=== PATIENT | female | born 2000 | race Caucasian/White ===

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

== ENCOUNTER 2020-02-10 14:52 | Emergency (ER) | payer MEDICAID, SELFPAY ==
[2020-02-10 14:57] VITALS: BP 142/77; PULSE 90; RESP 16; TEMP 36.5; O2SAT 98
[2020-02-10] MEDS: Inhaler, Assist Device 1 EACH MC (15:36)
[2020-02-10] MEDS: Albuterol HFA 8 GM 60 PUFF INH IH ×2 (15:36→16:05)
--- NOTE | 2020-02-10 16:25 | DI.RAD_ITS ---
EXAM: XR PORTABLE CHEST AP CLINICAL HISTORY: chest discomfort. TECHNIQUE: 2D digital imaging was performed. COMPARISON: CR,XR XR CHEST 2V PA LATERAL from 01/04/2019 FINDINGS: Heart size normal. Mediastinum is not widened. Lungs are clear. No infiltrates nor pleural effusio ns. No pulmonary edema. IMPRESSION: No acute pulmonary findings evident on this portable AP view of the chest. DATA REPOSITORY: RADIATION DOSE DELIVERED:
--- NOTE | 2020-02-10 16:30 | ED.GENADUL_ITS ---
Discharge Plan Disposition Patient Disposition: HOME Condition: Stable Discharge Details Clinical Impression: Bronchitis, Asthma exacerbation, Abscess of right thigh Primary Care Provider: Ryan Alvarado ED Provider: Jesus Sanford Home Meds and New Rx's Prescriptions: New amoxicillin-pot clavulanate [Augmentin] 875-125 mg tablet 1 tab PO BID Qty: 13 RF: 0 Continued albuterol sulfate 90 mcg/actuation aerosol powdr breath activated 2 inh IH Q4H PRN (Reason: shortness of breath or wheezing) Qty: 1 RF: 0 No Action ondansetron 4 mg tablet,disintegrating 4 mg PO Q8H PRN (Reason: nausea and vomiting) Qty: 30 RF: 0 Discharge Instructions Instructions: Albuterol (By breathing), Asthma (ED), Acute Bronchitis (ED), Abscess (ED) Additional Instructions: Use your albuterol inhaler every 4-6 hours, 2 puffs inhaled with spacer as needed for shortness of breath or wheezing. Please take steroid as prescribed. Please take full course of antibiotic as prescribed. Stop smoking. Refrain from inhaling any drugs. Please apply warm compresses to your right thigh a few times a day to encourage drainage. If swelling or pain worsens, please seek additional care. Please contact your primary care physician to arrange follow-up. Call tomorrow. Return to the ER for any worsening or new concerning symptoms. Referrals: Ryan Alvarado MD [Primary Care Provider] - Discharge Data Discharge Date/Time-TO BE ENTERED AT DEPARTURE: 02/10/20 16:55 Medical Decision Making 19-year-old female with history of asthma here with pleuritic chest discomfort, heavy inhalational use of marijuana, questioning inhalation of glass shard about 2 weeks ago, also with cough. Patient is saturating well in no respiratory distress. She is not tachycardic. No calf pain/tenderness or lower extremity edema. She does have faint wheeze bilaterally. PERC criteria applied. Suspect reactive airway disease with mild asthma exacerbation. Consider pneumonia and bronchitis. Patient was given albuterol treatment and spacer and symptoms did improve. Chest x-ray was reviewed and interpreted by radiology: No acute cardiopulmonary disease. No foreign body noted. Plan will be to treat for bronchitis and asthma exacerbation with prednisone 40 mg by mouth and will also cover with Augmentin. Consider COVID-19 although low risk. Will check COVID-19 test. Patient also noted a small abscess right upper thigh that has drained. No indication for incision and drainage. No surrounding cellulitis. Patient was encouraged to use warm compresses to encourage continued drainage Usual and customary discharge instructions were reviewed with the patient. She was encouraged to follow-up with primary care and to return for any worsening or new concerning symptoms. HPI General Mode of arrival: ambulatory . Date/Time Provider Initiated Documentation: 02/10/20 14:53 . Limitations to Documentation: no limitations . Information obtained by: patient . HPI Narrative: 19-year-old female with history of asthma here with chief complaint of chest discomfort. Patient notes that she has had chest discomfort for about 2 weeks. Discomfort is described congestion when she takes a deep deep inspiration. Discomfort is localized bilaterally. Discomfort is not present at rest. Discomfort is mild to moderate and has been intermittent since onset. She notes that symptoms started after inhaling marijuana through a bong. After inhaling she noted the balm had some broken glass in it and she was concerned that she inhaled a shard of glass. She did not feel any glass in her mouth no throat while inhaling. She does note that she has been inhaling marijuana more frequently recently related to stress. She has associated cough. No shortness of breath. No leg swelling or calf pain. She has no associated fever. No known contacts with Covid positive patient. Related Data Home Medications Medication Instructions Recorded Confirmed albuterol sulfate 2 inh IH Q4H PRN #1 each 01/04/19 01/24/19 amoxicillin-pot clavulanate 1 tab PO BID #13 tab 02/10/20 [Augmentin] ondansetron 4 mg PO Q8H PRN #30 tab 02/17/20 Previous Rx's Medication Instructions Recorded albuterol sulfate 2 inh IH Q4H PRN #1 each 01/04/19 amoxicillin-pot clavulanate 1 tab PO BID #13 tab 02/10/20 [Augmentin] ondansetron 4 mg PO Q8H PRN #30 tab 02/17/20 Allergies Allergy/AdvReac Type Severity Reaction Status Date / Time pineapple AdvReac Mild Skin Rash Unverified 02/10/20 15:10 General Stated Complaint: RespSymp JAMIE: 3 Review of Systems All systems reviewed & are unremarkable except as noted in HPI and below Constitutional Constitutional: Denies fever(s) Respiratory Respiratory: Reports cough and Reports wheezing Allergic/Immunologic Allergic/Immunologic: Reports wheezing PFSH Medical History History of self mutilation Cutting L arm Hx of maternal chlamydia infection, currently Teen Surgical History No significant past surgical history Family History Mother Substance abuse Alcohol abuse Mental disorder anxietyy/depression Father Healthy adult on routine physical examination Other Substance abuse maternal relatives Alcohol abuse maternal side Personal history of malignant neoplasm PGM-breast Heart disease MGM Multiple sclerosis MGM Social History Smoking/Tobacco Use Status: Never Smoking risk assessment performed?: Yes Alcohol Intake: current Alcohol Intake frequency: a few times a week Drug use: Occasionally Substance use type: marijuana Details: MDMA sometimes Do you feel safe at home: Yes Do you feel safe in your relationship?: Yes History History 1 Para Hx # Term Pregnancies Multiple births Hx # Pregnancies Ectopic pregnancies AB induced Hx Number of Living Children 0 AB spontaneous 1 Past Pregnancies Del. Date GA/Weeks # Outcome Route Wgt Sex Labor Lgth Anesthes ia Location Prov Complic 08/26/18 Unsuccessful Delivery Date: 08/26/18 Bernadine Man LPN Exam Const General: cooperative and no acute distress HENMT Mouth: moist mucous membranes Eyes Conjunctivae: normal conjunctivae Sclera: normal sclerae Neck Neck: trachea midline and supple Resp Auscultation: no rales, no rhonchi and wheezes (Faint bilateral) Cardio Rate: regular rate and not tachycardic Rhythm: regular rhythm GI Palpation: soft, not firm, no guarding, no masses, not rigid and nontender Skin Lesions: lesion noted (1 cm ulcerated abscess with no active drainage, no fluctuance) Rashes: no rashes noted Neuro General: patient alert, patient awake and tone normal Extrem General: no calf tenderness and no edema Psych Appearance: grossly normal Mental Status: mental status grossly normal Course Vital Signs Vital signs: Vital Signs Temperature 36.5 C 02/10/20 14:57 Pulse 90 02/10/20 14:57 Respiratory Rate 16 02/10/20 14:57 Blood Pressure 142/77 H 12/16/20 14:57 Pulse Oximetry 98 02/10/20 14:57 Temperature 36.5 C 02/10/20 14:57 Temperature Source Temporal Artery Scan 02/10/20 14:57 Pulse 90 02/10/20 14:57 Respiratory Rate 16 02/10/20 14:57 Respiratory Effort 02/10/20 15:12 Blood Pressure 142/77 H 02/10/20 14:57 Blood Pressure Position Sitting 02/10/20 14:57 Pulse Oximetry 98 02/10/20 14:57 Oxygen Delivery Method Room Air 02/10/20 14:57 Oxygen Flow Rate 0 02/10/20 14:57 Lab/Test Results Lab/Test Results: POC- Test(urine) Negative
[2020-02-10] MEDS: predniSONE 20 MG TAB 40 MG PO (16:38)
[2020-02-10] MEDS: Amoxicillin 875/Clav. 125 TAB PO (16:38)
--- NOTE | 2020-02-10 16:40 | DI.VRAD_ITS ---
PROCEDURE INFORMATION: Exam: XR Chest, 1 View Exam date and time: 02/10/2020 4:22 PM Age: 19 years old Clinical indication: Other: Chest discomfort TECHNIQUE: Imaging protocol: XR of the chest Views: 1 view. COMPARISON: CR XR CHEST 2V PA LATERAL 01/04/2019 2:36 PM FINDINGS: Lungs: Lungs volumes are low. There is no focal consolidation. Pleural space: Unremarkable. No pleural effusion. No pneumothorax. Heart/Mediastinum: Unremarkable. No cardiomegaly. Bones/joints: Unremarkable. IMPRESSION: No acute pulmonary process. Dictated and Authenticated by: Willis Sky MD. Ordering:TARIQ Lee MD
[2020-02-10 16:46] VITALS: BP 126/81; PULSE 87; RESP 14; TEMP 36.6; O2SAT 100
[2020-02-12 21:37] LABS: COVID-19 RT-PCR Result NEGATIVE (Negative)
--- NOTE | 2020-02-16 17:50 | NUR.NOTE ---
gave patient her COVID test results: negative
== END 2020-02-10 16:55 | disposition home or self-care (01) ==
PROVIDERS: Emergency Provider Student in an Organized Health Care Education/Training Program; PCP Pediatrics
DX: J44.0 Chronic obstructive pulmonary disease with (acute) lower respiratory infection (principal); J20.9 Acute bronchitis, unspecified; J45.901 Unspecified asthma with (acute) exacerbation; L02.415 Cutaneous abscess of right lower limb; Z03.818 Encounter for observation for suspected exposure to other biological agents ruled out; F17.210 Nicotine dependence, cigarettes, uncomplicated; F12.10 Cannabis abuse, uncomplicated
CPT/HCPCS: 81025; 99283; U0003; 71045; 99284; J7512

== ENCOUNTER 2020-02-17 09:41 | Emergency (ER) | payer MEDICAID, SELFPAY ==
[2020-02-17] VITALS (11 sets, daily range): BP systolic 103–133; BP diastolic 59–78; PULSE 81–93; RESP 18–21; TEMP 36.7; O2SAT 99
--- NOTE | 2020-02-17 09:45 | RT.EKG_ITS ---
APPROVED REPORT Exam: Resting ECG Patient Location: E HR:86 bpm ECG Measurements Heart Rate 86 AXIS AL 159 P 48 QRSd 84 QRS 25 QT 330 T 2 QTc 396 Conclusion Sinus rhythm...normal P axis, V-rate 60- 99
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
[2020-02-17 10:14] LABS: Bilirubin Negative (Negative); Blood Negative (Negative); Clarity Sl Cloudy (Clear); Glucose Negative (Negative); Ketones Negative (Negative); Leukocyte Esterase Trace (Negative); Nitrite Negative (Negative); Urobilinogen 0.2 EU/dL (Up TO 0.2); pH 8.5 (5-8)
[2020-02-17] MEDS: Ketorolac 15 MG/ML VIAL IVP (10:18)
[2020-02-17] MEDS: LORazepam 2 MG/ML VIAL 1 MG IVP (10:18)
[2020-02-17 10:24] LABS: Bacteria Negative HPF (Negative); C & S Indicated? No/Sq. Contamination; Casts Negative LPF (Negative); Crystals Negative HPF (Negative); Epithelial Cells Many HPF (Negative); Mucus Negative (Negative); RBC 0-2 HPF (0-2)
[2020-02-17 10:26] LABS: *AMPHETAMINES SCREEN URINE Negative (Negative); *BARBITURATES SCREEN URINE Negative (Negative); *BENZODIAZEPINES SCREEN URINE Negative (Negative); Cannabinoids THC POSITIVE (Negative); Cocaine Screen,Urine Negative (Negative); METHADONE URINE SCREEN Negative (Negative); OPIATES URINE SCREEN Negative (Negative)
[2020-02-17 10:29] LABS: Tricyclic Antidepressants Negative (Negative)
[2020-02-17 10:41] LABS: Abs Immature Grans 0.03 10^3/uL (0.0-0.06); Absolute Basophil Count 0.01 10^3/uL (0.0-0.2); Absolute Eosinophil Count 0.22 10^3/uL (0.0-0.7); Basophils % 0.2; Eosinophils % 3.5; HCT 46.3 % (36.0-46.0); Immature Grans % 0.5; Lymphocytes % 23.6; MCH 32.8 pg (27.0-33.0); MCHC 34.6 % (32.0-36.0); MCV 94.9 fL (80-95); MPV 10.9 fL (8.0-11.0); Monocytes % 9.4; Neutrophils % 62.8; Nucleated RBC 0 %; Platelet Count 238 10^3/uL (130-400); RBC 4.88 10^6/uL (3.93-5.22); RDW 11.2 % (11.7-14.6); RDW-SD 38.9 fL; WBC 6.36 10^3/uL (4.4-10.8)
[2020-02-17 10:52] LABS: ALT 69 U/L (14-59); AST 30 U/L (15-37); Albumin 4.3 g/dL (3.4-5.0); Alkaline Phosphatase 82 U/L (46-116); Anion Gap 8.2 mmol/L (3-11); BUN 8 mg/dL (7-18); Bilirubin, Total 0.9 mg/dL (0.2-1.0); CO2 26.8 mmol/L (21.0-32.0); CREATININE 0.65 mg/dL (0.55-1.02); Calcium 9.3 mg/dL (8.5-10.1); Chloride 105 mmol/L (98-107); Glucose 95 mg/dL (74-106); Lipase 61 U/L (73-393); Magnesium 2.1 mg/dL (1.8-2.4); Potassium 3.8 mmol/L (3.5-5.1); Sodium 140 mmol/L (136-145); Total Protein 8.4 g/dL (6.4-8.2)
[2020-02-17] MEDS: Omnipaque 350 MG/ML 100 ML BTL IJ (10:59)
[2020-02-17] MEDS: Normal Saline Flush 10 ML SYR IVP (11:00)
[2020-02-17] MEDS: Normal Saline - Diluent 50 ML VIAL IV (11:00)
[2020-02-17] MEDS: Ondansetron 4 MG/2 ML VIAL (11:07)
[2020-02-17 11:08] LABS: ETHANOL BLOOD < 3.0 mg/dL (<3)
--- NOTE | 2020-02-17 12:06 | NUR.NOTE ---
copy to care management to establish pcpNursing Note:
== END 2020-02-17 12:17 | disposition home or self-care (01) ==
PROVIDERS: Emergency Provider Emergency Medicine; PCP Pediatrics
DX: S06.0X0A Concussion without loss of consciousness, initial encounter (principal); S16.1XXA Strain of muscle, fascia and tendon at neck level, initial encounter; R07.81 Pleurodynia; M25.512 Pain in left shoulder; R10.12 Left upper quadrant pain
CPT/HCPCS: 36415; 74177; 80053; 80307; 81025; 83690; 93005; 99285; 70450; 71260; 72125; 80320; 81003; 81015; 83735; 85025; 93010; J1885; J2060; J2405; J3490

== ENCOUNTER 2020-03-12 11:50 | Emergency (ER) | payer MEDICAID, SELFPAY ==
[2020-03-12 12:06] VITALS: BP 137/79; PULSE 91; RESP 18; TEMP 36.7; O2SAT 98
--- NOTE | 2020-03-12 12:20 | ED.GENADUL_ITS ---
Discharge Plan Disposition Patient Disposition: HOME Condition: Good Discharge Details Clinical Impression: Finger laceration Primary Care Provider: Ryan Alvarado ED Provider: Yue Robin Home Meds and New Rx's Prescriptions: No Action albuterol sulfate 90 mcg/actuation aerosol powdr breath activated 2 inh IH Q4H PRN (Reason: shortness of breath or wheezing) Qty: 1 RF: 0 ondansetron 4 mg tablet,disintegrating 4 mg PO Q8H PRN (Reason: nausea and vomiting) Qty: 30 RF: 0 Discharge Instructions Instructions: Finger Laceration (ED) Additional Instructions: Staff to remove Surgicel in 3-5 days Keep dry until that time Change dressing daily Ibuprofen Tylenol as needed for Your wounds will likely treat. I recommend keeping it covered at work Please return if redness, fever, worsening pain Medical Decision Making Medical Records Medical records narrative: Tetanus updated Surgicel applied after wound cleaned Pressure dressing applied Coagulation achieved Return precautions discussed and patient expressed understanding Lab Data Lab results reviewed: Yes I reviewed the patient's lab results. HPI 19-year-old female presents with wound to the left index finger. States that she was at work and lifting daily needed when she accidentally sliced her finger. The event occurred approximately half hour prior to arrival. Unsure of her last tetanus. Denies . Denies any additional injury. Denies history of coagulopathy. General Date/Time Provider Initiated Documentation: 03/12/20 12:19 . Related Data Home Medications Medication Instructions Recorded Confirmed albuterol sulfate 2 inh IH Q4H PRN #1 each 01/04/19 03/12/20 ondansetron 4 mg PO Q8H PRN #30 tab 02/17/20 03/12/20 Previous Rx's Medication Instructions Recorded albuterol sulfate 2 inh IH Q4H PRN #1 each 01/04/19 ondansetron 4 mg PO Q8H PRN #30 tab 02/17/20 Allergies Allergy/AdvReac Type Severity Reaction Status Date / Time pineapple AdvReac Mild Skin Rash Unverified 03/12/20 12:23 General Stated Complaint: Laceration JAMIE: 4 Review of Systems Narrative: Review of systems negative times 3 aside from where indicated in HPI PFSH Medical History History of self mutilation Cutting L arm Hx of maternal chlamydia infection, currently Teen Surgical History No significant past surgical history Family History Mother Substance abuse Alcohol abuse Mental disorder anxietyy/depression Father Healthy adult on routine physical examination Other Substance abuse maternal relatives Alcohol abuse maternal side Personal history of malignant neoplasm PGM-breast Heart disease MGM Multiple sclerosis MGM Social History Smoking/Tobacco Use Status: Never Smoking risk assessment performed?: Yes Alcohol Intake: current Alcohol Intake frequency: a few times a week Drug use: Occasionally Substance use type: marijuana Details: MDMA sometimes Do you feel safe at home: Yes Do you feel safe in your relationship?: Yes History History 1 Para Hx # Term Pregnancies Multiple births Hx # Pregnancies Ectopic pregnancies AB induced Hx Number of Living Children 0 AB spontaneous 1 Past Pregnancies Del. Date GA/Weeks # Outcome Route Wgt Sex Labor Lgth Anesthes ia Location Prov Complic 08/26/18 Unsuccessful Delivery Date: 08/26/18 Bernadine Man LPN Exam Neuro Sensory Exam: no sensory deficits noted Extrem Left upper extremity: full ROM and normal capillary refill Hand/finger images: 1. Avulsion Course Vital Signs Vital signs: Vital Signs Temperature 36.7 C 03/12/20 12:06 Pulse 91 H 03/12/20 12:06 Respiratory Rate 18 03/12/20 12:06 Blood Pressure 137/79 03/12/20 12:06 Pulse Oximetry 98 03/12/20 12:06 Temperature 36.7 C 03/12/20 12:06 Temperature Source Temporal Artery Scan 03/12/20 12:06 Pulse 91 H 03/12/20 12:06 Respiratory Rate 18 03/12/20 12:06 Respiratory Effort 03/12/20 12:19 Blood Pressure 137/79 03/12/20 12:06 Blood Pressure Position Sitting 03/12/20 12:06 Pulse Oximetry 98 03/12/20 12:06 Oxygen Delivery Method Room Air 03/12/20 12:06 Oxygen Flow Rate 0 03/12/20 12:06 Pain Level 5 03/12/20 12:06
[2020-03-12] MEDS: Cellulose,Oxidized 2X3 PKT 1 EACH MC (12:24)
[2020-03-12] MEDS: Tetanus & Diphtheria Tox,ADULT 0.5 ML VIAL IM (12:39)
== END 2020-03-12 12:48 | disposition home or self-care (01) ==
PROVIDERS: Emergency Provider Physician Assistant; PCP Pediatrics
DX: S61.211A Laceration without foreign body of left index finger without damage to nail, initial encounter (principal); W31.82XA Contact with other commercial machinery, initial encounter; Y99.0 Civilian activity done for income or pay
CPT/HCPCS: 90471; 99284; 99283

== ENCOUNTER 2020-03-14 09:04 | Emergency (ER) | payer MEDICAID, SELFPAY ==
[2020-03-14 09:07] VITALS: BP 125/71; PULSE 95; RESP 16; TEMP 36.5; O2SAT 99
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
[2020-03-14] MEDS: Ibuprofen 600 MG TAB PO (09:57)
== END 2020-03-14 10:09 | disposition home or self-care (01) ==
PROVIDERS: Emergency Provider Registered Nurse Emergency; PCP Pediatrics
DX: S61.211A Laceration without foreign body of left index finger without damage to nail, initial encounter (principal); W31.82XA Contact with other commercial machinery, initial encounter; Z48.01 Encounter for change or removal of surgical wound dressing

== ENCOUNTER 2020-09-28 02:26 | Outpatient (CLI) | payer MEDICAID, SELFPAY ==
--- NOTE | 2020-09-28 | DI.US_ITS ---
Exam(s) US SOFT TISSUE HEAD OR NECK EXAM: US SOFT TISSUE HEAD OR NECK CLINICAL HISTORY: SCALP PAIN, R52,LOWER LT SCALP. TECHNIQUE: Ultrasound was performed using standard protocol. COMPARISON: No exams were available for comparison FINDINGS: Sonographic assessment utilizing grayscale and color Doppler imaging was performed and targeted to th e area of clinical concern. This is apparently behind her head left ear at the base of the skull. Imaging of this area reveals a 1.5 x 0.6 x 1.3 cm lymph node. No other lymph nodes noted. No other solid or significant cystic lesions seen in this area. It appears that the ultrasound examination was limited to the area of clinical concern. IMPRESSION: There is a 15 x 6 x 13 millimeter lymph node corresponding to the palpable finding. Recommend repeat scanning in a few months time to ensure size stability. Also correlation with clinical examination is recommended (such as if there are other prominent lymph nodes elsewhere in the neck, axilla/elsewh ere.) DATA REPOSITORY:
== END 2020-09-28 02:46 ==
PROVIDERS: PCP Pediatrics; Visit Provider Nurse Practitioner Family
DX: R51.9 Headache, unspecified (principal)
CPT/HCPCS: 76536

== ENCOUNTER 2021-01-09 05:17 | Emergency (ER) | payer MEDICAID, SELFPAY ==
[2021-01-09] VITALS (7 sets, daily range): BP systolic 111–148; BP diastolic 61–84; PULSE 74–86; RESP 16–18; TEMP 36.4–36.6; O2SAT 96–100
--- NOTE | 2021-01-09 05:45 | W.ED.GENAD ---
Discharge Plan Disposition Patient Disposition: HOME Condition: Stable Discharge Details Clinical Impression: Cervical herniated disc Primary Care Provider: Unknown,Unknown ED Provider: Bhargavi Sanford Home Meds and New Rx's Prescriptions: New prednisone 20 mg tablet 40 mg PO DAILY Qty: 8 RF: 0 oxycodone-acetaminophen [Percocet] 5-325 mg tablet 1 tab PO Q8H PRNQty: 5 RF: 0 No Action albuterol sulfate 90 mcg/actuation aerosol powdr breath activated 2 inh IH Q4H PRN (Reason: shortness of breath or wheezing) Qty: 1 RF: 0 ondansetron 4 mg tablet,disintegrating 4 mg PO Q8H PRN (Reason: nausea and vomiting) Qty: 30 RF: 0 Discharge Instructions Instructions: Cervical Strain (ED), Cervical Disc Herniation (ED) Additional Instructions: Please return immediately to the emergency department if you develop any new or worsening symptoms, if your condition does not improve as expected, or if you become otherwise concerned. It is extremely important that you call soon as possible to make an appointment to be seen in follow-up for this visit by your primary care doctor and an orthopedic surgeon. Stand Alone Forms: Work Release Referrals: Kelvin Madrigal MD [ [facility] STAFF PHYSICIAN] - Medical Decision Making <Jim Orr DO - Last Filed: 01/09/21 05:49> This is a 20-year-old female with a past medical history of asthma who presents for neck pain. Patient states that over a day and a half ago she fell and landed on her back and had some mild mid back pain. No neck pain at all at that time, however this morning when she woke up about an hour or 2 prior to arrival she had notable right-sided neck pain which caused her neck to be rotated to the left. She is unable to move the neck back towards midline secondary to the pain. She admits to mild achiness in her right neck, scapula, shoulder and back. She denies any fever or chills. She denies any trauma to the neck itself. She denies any numbness or tingling in the extremities. Symptoms are made notably worse with movement. Improved by nothing. No other complaints at this time. No other modifying factors. Physical exam demonstrates a leftward rotated neck, with mild left-sided sidebending. Tenderness over the trapezius, but no palpable spasm of the sternocleidomastoid. Concern for potential musculoskeletal strain and spasm. Symptoms at this time appearing consistent with meningitis. Will give muscle relaxant and Tylenol, and reassess. <Bhargavi Sanford MD - Last Filed: 01/09/21 14:26> Roshni Shaffer is a 20-year-old woman with history of asthma who presented to emergency department with neck pain, please see Dr. Orr's note for history and physical and assessment plan. Patient was signed out to me at time of shift change with imaging, labs pending. CT reported as negative, ESR and CRP negative. On my reassessment, patient reports that yesterday afternoon she fell backwards, hitting the lower part of her neck on a counter. Patient states that she did have neck pain at the time, but was able to turn her neck without issue. Patient reports that she woke up at 3 AM this morning unable to turn her neck secondary to pain. Patient holding her pain and left lateral rotation, has increased pain with rotation of her neck to midline. Patient reports that since onset of this pain at 3 AM, pain radiates into bilateral arms. She denies any other pain, fever, cough, shortness of breath, vomiting, diarrhea, numbness, weakness, rash. Patient reports that she was previously well in her usual state of health. Patient tearful, stating that she cannot turn her neck at all without severe pain radiating into bilateral arms. Given reported history of trauma and neck pain starting at onset of trauma with impacted neck) contrary to what was reported to Dr. Orr on initial presentation) plan for MRI of the neck for further evaluation. Exam/history at this time is not consistent with meningitis, subarachnoid hemorrhage, epidural abscess, epidural hematoma, sepsis. MRI shows small cervical disc herniation at C5-C6 level. Plan for steroids, ibuprofen for pain at home, Percocet for breakthrough pain, outpatient follow-up with orthopedic. Safe use of opiates discussed with patient. I had a lengthy discussion with Patient regarding return to emergency department precautions, home care, and importance of outpatient follow-up. Pt verbalizes understanding of the plan and is amenable. Patient discharged to home with clear plan for outpatient follow-up. All questions were answered. Disposition decision was made weighing the risks and benefits of hospitalization versus outpatient treatment, the risk for further decompensation, and the patient's wishes. Medical Records Medical records reviewed: Yes I reviewed the patient's medical records. Imaging Data Radiologic Study: Attestation: I personally reviewed and interpreted this imaging study as follows: Radiologist's impression: EXAM: MR CERVICAL SPINE WO CLINICAL HISTORY: neck pain, trauma, difficult ymoving neck TECHNIQUE: Multiplanar multisequence MRI of the cervical spine was performed without intravenous contrast. COMPARISON: CT CT NECK W from 01/09/2021 FINDINGS: CERVICOMEDULLARY JUNCTION: Intact with no evidence of cerebellar tonsillar ectopia. No obvious abnormality of the odontoid process. No evidence of Chiari 1 malformation. CERVICAL SPINAL CORD: There is no abnormal signal in the cervical spinal cord and no evidence of focal cord atrophy nor focal cord swelling. OSSEOUS:There are no cervical fractures evident. No significant osseous lesions in the cervical vertebrae. INDIVIDUAL LEVELS: C2-3: No disc herniation nor central canal stenosis. No foraminal stenosis. No facet arthropathy. C3-4: No disc herniation nor central canal stenosis.No facet arthropathy. No foraminal stenosis. C4-5: No disc herniation nor central canal stenosis.No facet arthropathy. No foraminal stenosis C5-6: Normal disc height. However at this level there is a central posterior subligamentous focal disc protrusion which extends posteriorly 2 millimeters and is approximately 5 millimeters wide. This is subligamentous and does not contact the spinal cord. Central canal dimensions are within normal limits at this level as are the foraminal measurement, with no evidence of foraminal stenosis. C6-7: No disc herniation or central canal stenosis. No facet arthropathy. No foraminal stenosis C7-T1: No disc herniation nor central canal stenosis. No facet arthropathy.No foraminal stenosis. IMPRESSION: 1. Main findings are at the C5-6 level where there is a small focal central subligamentous disc protrusion which extends posteriorly 2 millimeters and is approximately 5 millimeters wide. This does not contact the spinal cord. There is no abnormal cord signal nor evidence of focal cord atrophy nor focal cord swelling. CIS 2. Some straightening of the cervical curvature is noted EXAM: CT NECK W CLINICAL HISTORY: neck stuck in left rotation, right neck pain. TECHNIQUE: Imaging Protocol: Axial CT angiography was performed with multi-slice acquisition and multi-planar and/or 3D reconstructions. CONTRAST MATERIAL: Intravenous: Omnipaque 350 Contrast volume:structured data in ml COMPARISON: CT CT HEAD CERVICAL SPINE WO from 02/17/2020 FINDINGS: Paranasal sinuses: There is opacification of the left maxillary sinus and ethmoidal air cells. Also mild mucosal thickening noted in the sphenoid sinuses. Parotid and submandibular glands appear unremarkable. Thyroid gland appears unremarkable. Nasopharynx tissues appear symmetrical. No obvious mass in the oropharynx. Hypopharynx appears unremarkable. Free edge of the epiglottis is not swollen. Aryepiglottic folds unremarkable. Vocal cords appear unremarkable as does the subglottic airway. There is no adenopathy in the neck and supraclavicular regions. Vascular: Common carotid arteries and carotid bifurcations appear unremarkable as do the internal carotid arteries in the neck. Internal jugular veins are patent. Both vertebral arteries are patent. Osseous: No cervical spine fracture evident. No listhesis. No facet malalignment. Disc spaces exhibit normal height. IMPRESSION: 1. No evidence of cervical spine fracture or malalignment. 2. No abnormal soft tissue findings in the neck. Lab Data Lab results reviewed: Yes I reviewed the patient's lab results. Labs: Laboratory Tests Range/Units 01/09/21 01/09/21 01/09/21 05:45 05:45 05:45 WBC (4.4-10.8) 10^3/uL 5.27 RBC (3.93-5.22) 10^6/uL 4.39 Hgb (11.2-15.7) g/dL 14.5 Hct (36.0-46.0) % 42.7 MCV (80-95) fL 97.3 H MCH (27.0-33.0) pg 33.0 MCHC (32.0-36.0) % 34.0 RDW (11.7-14.6) % 11.0 L Plt Count (130-400) 10^3/uL 203 MPV (8.0-11.0) fL 10.8 Immature Gran % 0.2 Neutrophils % 57.5 Lymphocytes % 26.8 Monocytes % 10.4 Eosinophils % 4.7 Basophils % 0.4 Nucleated RBC % % 0 Absolute Neutrophils (1.2-6.7) 10^3/uL 3.03 Absolute Lymphocytes (1.2-3.4) 10^3/uL 1.41 Absolute Monocytes (0.1-0.8) 10^3/uL 0.55 Absolute Eosinophils (0.0-0.7) 10^3/uL 0.25 Absolute Basophils (0.0-0.2) 10^3/uL 0.02 ESR (0-20) mm/hr Sodium (136-145) mmol/L 145 Potassium (3.5-5.1) mmol/L 4.0 Chloride (98-107) mmol/L 108 H Carbon Dioxide (21.0-32.0) mmol/L 28.1 Anion Gap (3-11) mmol/L 8.9 BUN (7-18) mg/dL 9 Creatinine (0.55-1.02) mg/dL 0.6 Estimated GFR/1.73 m2 (mL/min/1.73m2) >= 60.00 Glucose (74-106) mg/dL 99 Calcium (8.5-10.1) mg/dL 8.7 Total Bilirubin (0.2-1.0) mg/dL 0.5 AST (15-37) U/L 13 L ALT (14-59) U/L 28 Alkaline Phosphatase (46-116) U/L 60 C-Reactive Protein (0.0-0.3) mg/dL 0.17 Total Protein (6.4-8.2) g/dL 7.1 Albumin (3.4-5.0) g/dL 4.0 Range/Units 01/09/21 05:45 WBC (4.4-10.8) 10^3/uL RBC (3.93-5.22) 10^6/uL Hgb (11.2-15.7) g/dL Hct (36.0-46.0) % MCV (80-95) fL MCH (27.0-33.0) pg MCHC (32.0-36.0) % RDW (11.7-14.6) % Plt Count (130-400) 10^3/uL MPV (8.0-11.0) fL Immature Gran % Neutrophils % Lymphocytes % Monocytes % Eosinophils % Basophils % Nucleated RBC % % Absolute Neutrophils (1.2-6.7) 10^3/uL Absolute Lymphocytes (1.2-3.4) 10^3/uL Absolute Monocytes (0.1-0.8) 10^3/uL Absolute Eosinophils (0.0-0.7) 10^3/uL Absolute Basophils (0.0-0.2) 10^3/uL ESR (0-20) mm/hr 4 Sodium (136-145) mmol/L Potassium (3.5-5.1) mmol/L Chloride (98-107) mmol/L Carbon Dioxide (21.0-32.0) mmol/L Anion Gap (3-11) mmol/L BUN (7-18) mg/dL Creatinine (0.55-1.02) mg/dL Estimated GFR/1.73 m2 (mL/min/1.73m2) Glucose (74-106) mg/dL Calcium (8.5-10.1) mg/dL Total Bilirubin (0.2-1.0) mg/dL AST (15-37) U/L ALT (14-59) U/L Alkaline Phosphatase (46-116) U/L C-Reactive Protein (0.0-0.3) mg/dL Total Protein (6.4-8.2) g/dL Albumin (3.4-5.0) g/dL HPI <Jim Orr DO - Last Filed: 01/09/21 05:49> General Date/Time Provider Initiated Documentation: 01/09/21 05:20. HPI Narrative: This is a 20-year-old female with a past medical history of asthma who presents for neck pain. Patient states that over a day and a half ago she fell and landed on her back and had some mild mid back pain. No neck pain at all at that time, however this morning when she woke up about an hour or 2 prior to arrival she had notable right-sided neck pain which caused her neck to be rotated to the left. She is unable to move the neck back towards midline secondary to the pain. She admits to mild achiness in her right neck, scapula, shoulder and back. She denies any fever or chills. She denies any trauma to the neck itself. She denies any numbness or tingling in the extremities. Symptoms are made notably worse with movement. Improved by nothing. No other complaints at this time. No other modifying factors. Related Data Home Medications Medication Instructions Recorded Confirmed albuterol sulfate 2 inh IH Q4H PRN #1 each 01/04/19 01/09/21 ondansetron 4 mg PO Q8H PRN #30 tab 02/17/20 03/14/20 oxycodone-acetaminophen [Percocet] 1 tab PO Q8H PRN #5 tab 01/09/21 prednisone 40 mg PO DAILY #8 tab 01/09/21 Previous Rx's Medication Instructions Recorded albuterol sulfate 2 inh IH Q4H PRN #1 each 01/04/19 ondansetron 4 mg PO Q8H PRN #30 tab 02/17/20 oxycodone-acetaminophen [Percocet] 1 tab PO Q8H PRN #5 tab 01/09/21 prednisone 40 mg PO DAILY #8 tab 01/09/21 Allergies Allergy/AdvReac Type Severity Reaction Status Date / Time pineapple AdvReac Mild Skin Rash Unverified 03/14/20 09:12 General Stated Complaint: Nk/Back Pain JAMIE: 4 Review of Systems <Jim Orr DO - Last Filed: 01/09/21 05:49> All systems reviewed & are unremarkable except as noted in HPI and below PFSH <Jim Orr DO - Last Filed: 01/09/21 05:49> Medical History History of self mutilation Cutting L arm Hx of maternal chlamydia infection, currently Teen Surgical History No significant past surgical history Family History Mother Substance abuse Alcohol abuse Mental disorder anxietyy/depression Father Healthy adult on routine physical examination Other Substance abuse maternal relatives Alcohol abuse maternal side Personal history of malignant neoplasm PGM-breast Heart disease MGM Multiple sclerosis MGM Social History Smoking/Tobacco Use Status: Never Smoking risk assessment performed?: Yes Alcohol Intake: current Alcohol Intake frequency: a few times a week Drug use: Occasionally Substance use type: marijuana Details: MDMA sometimes Do you feel safe at home: Yes Do you feel safe in your relationship?: Yes History History 1 Para Hx # Term Pregnancies Multiple births Hx # Pregnancies Ectopic pregnancies AB induced Hx Number of Living Children 0 AB spontaneous 1 Past Pregnancies Del. Date GA/Weeks # Outcome Route Wgt Sex Labor Lgth Anesthesia Location Prov Complic 08/26/18 Unsuccessful Delivery Date: 08/26/18 Bernadine Man LPN Exam <Jim Orr DO - Last Filed: 01/09/21 05:49> Narrative Exam Narrative: 1.Const: Well-nourished, Well-developed, appearing stated age 2.Eyes: PERRL, no conjunctival injection, and symmetrical lids. 3.ENT: Atraumatic external nose and ears. Moist MM. Neck: Symmetric, trachea midline, No thyromegaly. 4.CVS: +S1/S2, No murmurs or gallops. Peripheral pulses 2+ and equal in all extremities. Brisk capillary refill in all extremities. 5.RESP: Unlabored respiratory effort. Clear to auscultation bilaterally. No wheezes rales or rhonchi 6.GI: Soft, Nontender/Nondistended, No hepatosplenomegaly. No guarding or rebound. 7.MSK: Exam is challenging secondary to the patient's generalized tenderness, however she seems to have tenderness in the right paraspinal musculature, and the right trapezius muscle. I cannot palpate any tender spasm of the sternocleidomastoid. No midline cervical thoracic or lumbar spine tenderness. Distal extremities demonstrate good strength for contracts officer strength and movement of the elbows and shoulders. No weakness. No tingling. No numbness. 8.Skin: Warm, Dry. No rashes or lesions. 9.Neuro: manager party II-XII grossly intact. Sensation grossly intact, no focal neurologic deficits. 10.Psych: (AAO) x3. Appropriate mood and affect Course <Jim Orr, DO - Last Filed: 01/09/21 05:49> Vital Signs Vital signs: Vital Signs Temperature 36.5 C 01/09/21 05:21 Pulse 86 01/09/21 05:21 Respiratory Rate 18 01/09/21 05:21 Blood Pressure 148/84 H 01/09/21 05:21 Pulse Oximetry 96 01/09/21 05:21 Temperature 36.5 C 01/09/21 05:21 Temperature Source Tympanic 01/09/21 05:21 Pulse 86 01/09/21 05:21 Respiratory Rate 18 01/09/21 05:21 Respiratory Effort 01/09/21 05:25 Blood Pressure 148/84 H 01/09/21 05:21 Blood Pressure Position Sitting 01/09/21 05:21 Pulse Oximetry 96 01/09/21 05:21 Oxygen Delivery Method Room Air 01/09/21 05:21 Oxygen Flow Rate 0 01/09/21 05:21 Pain Level 7 01/09/21 05:21 Sign Out <Jim Orr DO - Last Filed: 01/09/21 05:49> Sign Out Data: Sign Out Comment: Suspected torticollis, follow-up on imaging and reassessment Last updated by Jim Orr DO at 01/09/21 08:14
[2021-01-09 05:57] LABS: Abs Immature Grans 0.01 10^3/uL (0.0-0.06); Absolute Basophil Count 0.02 10^3/uL (0.0-0.2); Absolute Eosinophil Count 0.25 10^3/uL (0.0-0.7); Absolute Lymphocyte Count 1.41 10^3/uL (1.2-3.4); Absolute Monocyte Count 0.55 10^3/uL (0.1-0.8); Absolute Neutrophil Count 3.03 10^3/uL (1.2-6.7); Basophils % 0.4; Eosinophils % 4.7; HCT 42.7 % (36.0-46.0); HGB 14.5 g/dL (11.2-15.7); Immature Grans % 0.2; Lymphocytes % 26.8; MCV 97.3 fL (80-95); MPV 10.8 fL (8.0-11.0); Monocytes % 10.4; Neutrophils % 57.5; Nucleated RBC 0 %; Platelet Count 203 10^3/uL (130-400); RBC 4.39 10^6/uL (3.93-5.22); RDW-SD 39.7 fL; WBC 5.27 10^3/uL (4.4-10.8)
[2021-01-09] MEDS: ACETAMINOPHEN 1,000 MG/100 ML BTL 400 MG IVPB (05:57)
[2021-01-09] MEDS: diazePAM 10 MG/2 ML SYR 5 MG IVP (05:58)
[2021-01-09] MEDS: Normal Saline 1,000 ML 1000 ML IV ×2 (05:58→08:51)
[2021-01-09 06:36] LABS: Alkaline Phosphatase 60 U/L (46-116); BUN 9 mg/dL (7-18); Bilirubin, Total 0.5 mg/dL (0.2-1.0); CREATININE 0.6 mg/dL (0.55-1.02); Calcium 8.7 mg/dL (8.5-10.1); Chloride 108 mmol/L (98-107); Glucose 99 mg/dL (74-106); Sodium 145 mmol/L (136-145); Total Protein 7.1 g/dL (6.4-8.2)
[2021-01-09 06:37] LABS: ALT 28 U/L (14-59); AST 13 U/L (15-37); Anion Gap 8.9 mmol/L (3-11); CO2 28.1 mmol/L (21.0-32.0)
--- NOTE | 2021-01-09 06:45 | DI.CT_ITS ---
Exam(s) CT NECK W EXAM: CT NECK W CLINICAL HISTORY: neck stuck in left rotation, right neck pain. TECHNIQUE: Imaging Protocol: Axial CT angiography was performed with multi-slice acquisition and mu lti-planar and/or 3D reconstructions. CONTRAST MATERIAL: Intravenous: Omnipaque 350 Contrast volume:structured data in ml COMPARISON: CT CT HEAD CERVICAL SPINE WO from 02/17/2020 FINDINGS: Paranasal sinuses: There is opacification of the left maxillary sinus and ethmoidal air cells. Also mild mucosal thickening noted in the sphenoid sinuses. Parotid and submandibular glands appear unremarkable. Thyroid gland appears unremarkable. Nasopharynx tissues appear symmetrical. No obvious mass in the oropharynx. Hypopharynx appears unre markable. Free edge of the epiglottis is not swollen. Aryepiglottic folds unremarkable. Vocal cord s appear unremarkable as does the subglottic airway. There is no adenopathy in the neck and supraclavicular regions. Vascular: Common carotid arteries and carotid bifurcations appear unremarkable as do the internal car otid arteries in the neck. Internal jugular veins are patent. Both vertebral arteries are patent. Osseous: No cervical spine fracture evident. No listhesis. No facet malalignment. Disc spaces exhi bit normal height. IMPRESSION: 1. No evidence of cervical spine fracture or malalignment. 2. No abnormal soft tissue findings in the neck. RADIATION DOSE DELIVERED: 386.79mGy.cm Total DLP DATA REPOSITORY: All CT scans at this facility are submitted to the National Radiology Data Registry (NRDR) Dose Index Registry (DIR) with the [employer] ([employer]). RADIATION OPTIMIZATION: All CT scans at this facility use at least one of these dose optimization te chniques: automated exposure control; mA and/or kV adjustment per patient size (includes targeted exa ms where dose is matched to clinical indication); or iterative reconstruction.
[2021-01-09] MEDS: HYDROmorphone 2 MG/ML VIAL 1 MG IVP (06:54)
[2021-01-09] MEDS: Omnipaque 350 MG/ML 100 ML BTL IV (08:00)
[2021-01-09 08:46] LABS: ESR 4 mm/hr (0-20)
[2021-01-09 09:33] LABS: C-Reactive Protein 0.17 mg/dL (0.0-0.3)
--- NOTE | 2021-01-09 09:45 | DI.MRI_ITS ---
Exam(s) MR CERVICAL SPINE WO EXAM: MR CERVICAL SPINE WO CLINICAL HISTORY: neck pain, trauma, difficult ymoving neck TECHNIQUE: Multiplanar multisequence MRI of the cervical spine was performed without intravenous con trast. COMPARISON: CT CT NECK W from 01/09/2021 FINDINGS: CERVICOMEDULLARY JUNCTION: Intact with no evidence of cerebellar tonsillar ectopia. No obvious abnor mality of the odontoid process. No evidence of Chiari 1 malformation. CERVICAL SPINAL CORD: There is no abnormal signal in the cervical spinal cord and no evidence of foca l cord atrophy nor focal cord swelling. OSSEOUS:There are no cervical fractures evident. No significant osseous lesions in the cervical vert ebrae. INDIVIDUAL LEVELS: C2-3: No disc herniation nor central canal stenosis. No foraminal stenosis. No facet arthropathy. C3-4: No disc herniation nor central canal stenosis.No facet arthropathy. No foraminal stenosis. C4-5: No disc herniation nor central canal stenosis.No facet arthropathy. No foraminal stenosis C5-6: Normal disc height. However at this level there is a central posterior subligamentous focal di sc protrusion which extends posteriorly 2 millimeters and is approximately 5 millimeters wide. This is subligamentous and does not contact the spinal cord. Central canal dimensions are within normal l imits at this level as are the foraminal measurement, with no evidence of foraminal stenosis. C6-7: No disc herniation or central canal stenosis. No facet arthropathy. No foraminal stenosis C7-T1: No disc herniation nor central canal stenosis. No facet arthropathy.No foraminal stenosis. IMPRESSION: 1. Main findings are at the C5-6 level where there is a small focal central subligamentous disc protr usion which extends posteriorly 2 millimeters and is approximately 5 millimeters wide. This does not contact the spinal cord. There is no abnormal cord signal nor evidence of focal cord atrophy nor fo lisa cord swelling. CIS 2. Some straightening of the cervical curvature is noted 3. DATA REPOSITORY:
[2021-01-09] MEDS: Ketorolac 15 MG/ML VIAL IVP (13:35)
[2021-01-09] MEDS: predniSONE 20 MG TAB 40 MG PO (13:36)
== END 2021-01-09 14:24 | disposition home or self-care (01) ==
PROVIDERS: Student in an Organized Health Care Education/Training Program; Emergency Provider Student in an Organized Health Care Education/Training Program
DX: S13.161A Dislocation of C5/C6 cervical vertebrae, initial encounter (principal); W18.39XA Other fall on same level, initial encounter
CPT/HCPCS: 70491; 80053; 81025; 85652; 96361; 96365; 96366; 96375; 96376; 99285; 72141; 85025; 86140; 99284; J0131; J1885; J3360; J3490; J7512

== ENCOUNTER 2021-01-11 07:06 | Emergency (ER) | payer MEDICAID, SELFPAY ==
[2021-01-11 07:29] VITALS: BP 123/61; PULSE 75; RESP 16; TEMP 36.7; O2SAT 99
--- NOTE | 2021-01-11 08:15 | DI.RAD_ITS ---
Exam(s) XR LUMBAR SPINE COMPLETE EXAM: XR LUMBAR SPINE COMPLETE CLINICAL HISTORY: Lumbar back pain TECHNIQUE: COMPARISON: No exams were available for comparison FINDINGS: Five views were obtained. Alignment appears within normal limits. No spondylolysis or spondylolisth esis. The intervertebral disc spaces are well maintained. No fracture identified. IMPRESSION: Negative examination of the lumbosacral spine. RADIATION DOSE DELIVERED: Total DLP
--- NOTE | 2021-01-11 08:16 | ED.GENADUL_ITS ---
Discharge Plan Disposition Patient Disposition: HOME Condition: Stable Discharge Details Clinical Impression: Cervical disc disorder with radiculopathy Primary Care Provider: Unknown,Unknown ED Provider: Rivka Bazan Home Meds and New Rx's Prescriptions: New cyclobenzaprine 10 mg tablet 10 mg PO TID PRN (Reason: muscle spasm) Qty: 10 RF: 0 No Action albuterol sulfate 90 mcg/actuation aerosol powdr breath activated 2 inh IH Q4H PRN (Reason: shortness of breath or wheezing) Qty: 1 RF: 0 prednisone 20 mg tablet 40 mg PO DAILY Qty: 8 RF: 0 oxycodone-acetaminophen [Percocet] 5-325 mg tablet 1 tab PO Q8H PRNQty: 5 RF: 0 Discharge Instructions Instructions: Cervical Radiculopathy (ED) Additional Instructions: Use the soft collar daily as needed for comfort. Alternate ice and heat. Try lidocaine patches which you can get [id number]. Take the muscle relaxers up to 3 times daily as prescribed. Continue to take the steroids if tolerated for pain. Take the Percocet with food to decrease the risk of nausea vomiting. Keep your upcoming appointment on Saturday as previously scheduled. Follow-up with orthopedics for further evaluation and treatment. Return to the ER or be seen sooner for any loss of use of arms, arm weakness. Follow up with primary care provider in 3-5 days. Return to ED sooner if any worsening or concerns. Increase oral fluids. Please take Tylenol or Ibuprofen with food every 4-6 hours as needed for pain and swelling. Stand Alone Forms: Work Release Referrals: Bruce De La Rosa MD [ [facility] STAFF PHYSICIAN] - Medical Decision Making 20-year-old female presents to the ER with chief complaint of worsening neck and back pain status post recent visit for a cervical herniated disc. Patient was seen in the emergency room 2 days ago and had an MRI which showed a herniated disc at C5-6. Patient reports that she was prescribed prednisone and Percocet which she has been unable to hold down. She reports vomiting yesterday and been unable to sleep last night. She reports increased [id number] in her arms and pain radiating down from her cervical spine into her lumbar spine. She denies any recurrent falls or heavy lifting. She denies any loss of bowel or bladder control no saddle anesthesia no numbness feeling in her legs. She reports increased pain with rotation of her neck to the right. On initial exam she does have some muscle spasm and paraspinous tenderness noted to the left of her lumbar spine. No focal neuro deficits noted. At this time 4 mg Zofran ODT, Valium 5 mg p.o., Toradol 10 mg p.o. ordered L- spine x-rays. Patient has a PCP appointment on Saturday. XR LUMBAR SPINE COMPLETE EXAM: XR LUMBAR SPINE COMPLETE CLINICAL HISTORY: Lumbar back pain TECHNIQUE: COMPARISON: No exams were available for comparison FINDINGS: Five views were obtained. Alignment appears within normal limits. No spondylolysis or spondylolisthesis. The intervertebral disc spaces are well maintained. No fracture identified. IMPRESSION: Negative examination of the lumbosacral spine. 0915: Patient re-evaluation she reports continued pain after the Valium and Toradol. She declined taking the Zofran. Did order 10 mg cyclobenzaprine and 3 tablets to go given her prescription for Flexeril. Discussed taking the Percocet and prednisone with food. Encouraged to keep upcoming appointment on Saturday as previously scheduled. Discussed strict return instructions including to return if increasing weakness or problems with mobility to the upper arms. Patient verbalized understanding and was discharged in hemodynamically stable condition. This text was generated using [employer] dictation system, please disregard any oddities of phrase or misspellings. HPI General Mode of arrival: ambulatory . Date/Time Provider Initiated Documentation: 01/11/21 07:37 . Limitations to Documentation: no limitations . Information obtained by: patient, RN notes reviewed and old records reviewed . HPI Narrative: 20-year-old female presents to the ER with chief complaint of worsening neck and back pain status post recent visit for a cervical herniated disc. Patient was seen in the emergency room 2 days ago and had an MRI which showed a herniated disc at C5-6. Patient reports that she was prescribed prednisone and Percocet which she has been unable to hold down. She reports vomiting yesterday and been unable to sleep last night. She reports increased uyis-jlz-yvbfxfh in her arms and pain radiating down from her cervical spine into her lumbar spine. She denies any recurrent falls or heavy lifting. She denies any loss of bowel or bladder control no saddle anesthesia no numbness feeling in her legs. She reports increased pain with rotation of her neck to the right. On initial exam she does have some muscle spasm and paraspinous tenderness noted to the left of her lumbar spine. No focal neuro deficits noted. Related Data Home Medications Medication Instructions Recorded Confirmed albuterol sulfate 2 inh IH Q4H PRN #1 each 01/04/19 01/11/21 oxycodone-acetaminophen [Percocet] 1 tab PO Q8H PRN #5 tab 01/09/21 01/11/21 prednisone 40 mg PO DAILY #8 tab 01/09/21 01/11/21 cyclobenzaprine 10 mg PO TID PRN #10 tab 01/11/21 Previous Rx's Medication Instructions Recorded albuterol sulfate 2 inh IH Q4H PRN #1 each 01/04/19 oxycodone-acetaminophen [Percocet] 1 tab PO Q8H PRN #5 tab 01/09/21 prednisone 40 mg PO DAILY #8 tab 01/09/21 cyclobenzaprine 10 mg PO TID PRN #10 tab 01/11/21 Allergies Allergy/AdvReac Type Severity Reaction Status Date / Time pineapple AdvReac Mild Skin Rash Unverified 01/11/21 07:34 General Stated Complaint: Nk/Back Pain JAMIE: 3 Review of Systems All systems reviewed & are unremarkable except as noted in HPI and below Musculoskeletal Musculoskeletal: Reports as per HPI, Reports back pain, Denies muscle weakness and Reports tingling Neurologic Neurologic: Reports tingling PFSH Active Problem List Cervical herniated disc (Acute) Pre-conception counseling (Acute) Contraception (Acute) Depression (Acute 09/14/14) Medical History History of self mutilation Cutting L arm Hx of maternal chlamydia infection, currently Teen Surgical History No significant past surgical history Family History Mother Substance abuse Alcohol abuse Mental disorder anxietyy/depression Father Healthy adult on routine physical examination Other Substance abuse maternal relatives Alcohol abuse maternal side Personal history of malignant neoplasm PGM-breast Heart disease MGM Multiple sclerosis MGM Social History (Reviewed 01/11/21 @ 08:18 by Rivka Smith Smoking/Tobacco Use Status: Never Smoking risk assessment performed?: Yes Alcohol Intake: current Alcohol Intake frequency: holidays/special occasions only Drug use: Occasionally Substance use type: marijuana Details: MDMA sometimes Do you feel safe at home: Yes Do you feel safe in your relationship?: Yes History History 1 Para Hx # Term Pregnancies Multiple births Hx # Pregnancies Ectopic pregnancies AB induced Hx Number of Living Children 0 AB spontaneous 1 Past Pregnancies Del. Date GA/Weeks # Outcome Route Wgt Sex Labor Lgth Anesthes ia Location Prov Complic 08/26/18 Unsuccessful Delivery Date: 08/26/18 D and C Bernadine Loya LPN Exam Narrative Exam Narrative: Constitutional: Alert and oriented x3. Appears stated age. Normal body habitus. Head: Normocephalic, no trauma. Eyes: Pupils PERRL, Red reflex noted, EOM's intact. Eyelids symmetrical without lesions, discharge, or swelling. ENT: Bilateral TM's WNL, External ear normal to inspection, no mastoid TTP, swelling, or erythema, Nasal turbinates WNL, no nasal discharge. Normal dentition, Posterior pharynx WNL, no exudate. Chest: RRR, Normal S1, S2, distal pulses intact. Resp: Lungs clear to auscultation bilaterally, no wheezes, rales, or rhonchi. Abdomen: Soft, non-distended, Normoactive bowel sounds all 4 quads. Musculoskeletal: Unable to assess gait, 5/5 strength to all four extremities. Left lower paraspinous tenderness and spasm and some lower midline tenderness with palpation. Skin: No suspicious rashes or lesions. Capillary refill less than 2 sec. Neurologic: Cranial nerves II-XII intact. Alert and oriented x 3. Motor: No deficits noted. Engineering Lecturer equal bilateral upper extremities, no pronator drift. Sensory: Intact bilaterally all 4 extremities. Reflexes: DTR's intact bilaterally.. Hematologic/Lymphatic: No ecchymosis, no lymphadenopathy. Course Vital Signs Vital signs: Vital Signs Temperature 36.7 C 01/11/21 07:29 Pulse 75 01/11/21 07:29 Respiratory Rate 16 01/11/21 07:29 Blood Pressure 123/61 01/11/21 07:29 Pulse Oximetry 99 01/11/21 07:29 Temperature 36.7 C 01/11/21 07:29 Temperature Source Skin 01/11/21 07:29 Pulse 75 01/11/21 07:29 Respiratory Rate 16 01/11/21 07:29 Respiratory Effort Non-Labored 01/11/21 07:29 Blood Pressure 123/61 01/11/21 07:29 Blood Pressure Position Sitting 01/11/21 07:29 Pulse Oximetry 99 01/11/21 07:29 Oxygen Delivery Method Room Air 01/11/21 07:29 Oxygen Flow Rate 0 01/11/21 07:29 Pain Level 8 01/11/21 07:35
[2021-01-11] MEDS: Ketorolac 10 MG TAB PO (08:20)
[2021-01-11] MEDS: diazePAM 5 MG TAB PO (08:20)
[2021-01-11] MEDS: Cyclobenzaprine 10 MG TAB PO (09:38)
[2021-01-11] MEDS: Cyclobenzaprine 10 MG TAB, 3 TABS/BTL PO (09:43)
--- NOTE | 2021-01-11 14:57 | CMPROGNOTE_ITS ---
- If Service Date Differs Date of service: 01/11/21 Time of Service: 14:57 Care Management Progress Note Roshni is seen in the ED for cervical radiculopathy. At the request of ED provider, CM coordinates a referral to [facility] to assist Roshni in obtaining an appointment for evaluation and treatment.
== END 2021-01-11 10:55 | disposition home or self-care (01) ==
PROVIDERS: Emergency Provider Registered Nurse Emergency
DX: M50.122 Cervical disc disorder at C5-C6 level with radiculopathy (principal); R20.2 Paresthesia of skin; M62.830 Muscle spasm of back
CPT/HCPCS: 99283; 72110

== ENCOUNTER 2021-01-12 08:20 | Emergency (ER) | payer MEDICAID, SELFPAY ==
[2021-01-12 08:31] VITALS: BP 139/85; PULSE 100; RESP 16; TEMP 37; O2SAT 99
--- NOTE | 2021-01-12 08:56 | W.ED.GENAD ---
Discharge Plan Disposition Patient Disposition: HOME Condition: Stable Discharge Details Clinical Impression: Cervical disc disorder with radiculopathy Primary Care Provider: Unknown,Unknown ED Provider: Yue Robin Home Meds and New Rx's Prescriptions: New prednisone 10 mg tablet 10 mg PO DAILY Qty: 30 RF: 0 gabapentin [Neurontin] 300 mg capsule 300 mg PO DAILY Qty: 18 RF: 0 Continued albuterol sulfate 90 mcg/actuation aerosol powdr breath activated 2 inh IH Q4H PRN (Reason: shortness of breath or wheezing) Qty: 1 RF: 0 cyclobenzaprine 10 mg tablet 10 mg PO TID PRN (Reason: muscle spasm) Qty: 10 RF: 0 Discontinued oxycodone-acetaminophen [Percocet] 5-325 mg tablet 1 tab PO Q8H PRNQty: 5 RF: 0 No Action prednisone 20 mg tablet 40 mg PO DAILY Qty: 8 RF: 0 Discharge Instructions Additional Instructions: Do not wear your collar continuously as her neck may become more stiff Only wear it as needed with the past Keep your appointment scheduled this is important I am referring you for physical therapy as well Extend your prednisone as prescribed You may add Neurontin onto your regimen, use caution as you are not able to drive while taking this medication Please return should you have fever, worsening pain, weakness, or with any new or worsening complaints Keep your appointment scheduled with your doctor tomorrow Refill your Flexeril as discussed Stand Alone Forms: Physical Therapy Referral Discharge Data Discharge Date/Time-TO BE ENTERED AT DEPARTURE: 01/12/21 09:26 Medical Decision Making Patient is alert, oriented, well in appearance. She has a nonfocal neurological exam, given her radiculopathy after reviewing her MRI findings like herniated disc, I did offer her Neurontin, I did inform her that opiate are not beneficial in this diagnosis and that the most important thing she can do is keep her appointment with the spine center at [facility], in the interim I referred her to physical therapy There is no indication for repeat imaging at this time I reviewed her last few visits, pain in the where she had extensive evaluation I have extended her prednisone for the another 7 days and tapered it she will have been on it for approximately 2 weeks point She is given low threshold to return with new or worsening complaints Of note, she appears distressed upon initial evaluation and at time of departure, she looks well, is happy, and interactive: No medications were administered during this evaluation Medical Records Medical records reviewed: Yes I reviewed the patient's medical records. Lab Data Lab results reviewed: Yes I reviewed the patient's lab results. HPI General Mode of arrival: ambulatory. Date/Time Provider Initiated Documentation: 01/12/21 08:37. Limitations to Documentation: no limitations. Information obtained by: patient. HPI Narrative: This 20-year-old female with history of depression presents with persistent neck and radiation to arm pain. She states that she had a fall and was diagnosed with a herniated disc 2 days ago. She states that she has been taking Flexeril which actually has helped her pain, prednisone, since the event occurred. She denies any chest pain or shortness of breath. She denies any weakness to her extremities. She denies any change in the pain. Today she is simply here because she cannot sleep and she was only given 5 of oxycodone. She states that this did not really help her pain. She specifically is requesting that we help her sleep . Denies chance of . Denies any fever or chills. Reports she has an appointment with therapist in 2 weeks at the spine center. Related Data Home Medications Medication Instructions Recorded Confirmed albuterol sulfate 2 inh IH Q4H PRN #1 each 01/04/19 01/12/21 prednisone 40 mg PO DAILY #8 tab 01/09/21 01/12/21 cyclobenzaprine 10 mg PO TID PRN #10 tab 01/11/21 01/12/21 gabapentin [Neurontin] 300 mg PO DAILY #18 cap 01/12/21 prednisone 10 mg PO DAILY #30 tab 01/12/21 Previous Rx's Medication Instructions Recorded albuterol sulfate 2 inh IH Q4H PRN #1 each 01/04/19 prednisone 40 mg PO DAILY #8 tab 01/09/21 cyclobenzaprine 10 mg PO TID PRN #10 tab 01/11/21 gabapentin [Neurontin] 300 mg PO DAILY #18 cap 01/12/21 prednisone 10 mg PO DAILY #30 tab 01/12/21 Allergies Allergy/AdvReac Type Severity Reaction Status Date / Time pineapple AdvReac Mild Skin Rash Unverified 01/12/21 08:35 General Stated Complaint: Nk/Back Pain JAMIE: 4 Review of Systems All systems reviewed & are unremarkable except as noted in HPI and below PFSH Active Problem List Cervical herniated disc (Acute) Pre-conception counseling (Acute) Contraception (Acute) Depression (Acute 09/14/14) Medical History History of self mutilation Cutting L arm Hx of maternal chlamydia infection, currently Teen Surgical History No significant past surgical history Family History Mother Substance abuse Alcohol abuse Mental disorder anxietyy/depression Father Healthy adult on routine physical examination Other Substance abuse maternal relatives Alcohol abuse maternal side Personal history of malignant neoplasm PGM-breast Heart disease MGM Multiple sclerosis MGM Social History Smoking/Tobacco Use Status: Never Smoking risk assessment performed?: Yes Alcohol Intake: current Alcohol Intake frequency: holidays/special occasions only Drug use: Occasionally Substance use type: marijuana Details: MDMA sometimes Do you feel safe at home: Yes Do you feel safe in your relationship?: Yes History History 1 Para Hx # Term Pregnancies Multiple births Hx # Pregnancies Ectopic pregnancies AB induced Hx Number of Living Children 0 AB spontaneous 1 Past Pregnancies Del. Date GA/Weeks # Outcome Route Wgt Sex Labor Lgth Anesthesia Location Prov [facility] 08/26/18 Unsuccessful Delivery Date: 08/26/18 Bernadine Man LPN Exam Const General: cooperative and no acute distress Neck Other: Predominantly right-sided paraspinal tenderness, no midline tenderness, no visible sign of trauma, soft collar in place, removed for examination Resp Effort & Inspection: normal respiratory effort Cardio Rate: regular rate Skin General skin exam: no rashes or lesions noted Neuro General: patient alert and patient oriented x3 Other: Strength and sensation intact distally, hand grasp and intact to bilateral upper extremities, no strength or sensation changes to bilateral lower extremities Extrem Other: Distal pulses intact bilateral upper and lower extremities Course Vital Signs Vital signs: Vital Signs Temperature 37 C 01/12/21 08:31 Pulse 100 H 01/12/21 08:31 Respiratory Rate 16 01/12/21 08:31 Blood Pressure 139/85 01/12/21 08:31 Pulse Oximetry 99 01/12/21 08:31 Temperature 37 C 01/12/21 08:31 Temperature Source Skin 01/12/21 08:31 Pulse 100 H 01/12/21 08:31 Respiratory Rate 16 01/12/21 08:31 Respiratory Effort Non-Labored 01/12/21 08:31 Blood Pressure 139/85 01/12/21 08:31 Blood Pressure Position Sitting 01/12/21 08:31 Pulse Oximetry 99 01/12/21 08:31 Oxygen Delivery Method Room Air 01/12/21 08:31 Oxygen Flow Rate 0 01/12/21 08:31 Pain Level 9 01/12/21 08:31
== END 2021-01-12 09:26 | disposition home or self-care (01) ==
PROVIDERS: Emergency Provider Physician Assistant
DX: S13.1 Subluxation and dislocation of cervical vertebrae (principal); W18.39XD Other fall on same level, subsequent encounter; M54.12 Radiculopathy, cervical region
CPT/HCPCS: 99283

== ENCOUNTER 2021-01-21 08:14 | Emergency (ER) | payer MEDICAID, SELFPAY ==
[2021-01-21 08:23] VITALS: BP 124/81; PULSE 96; RESP 16; TEMP 36.3; O2SAT 99
--- NOTE | 2021-01-21 08:41 | ED.GENADUL_ITS ---
Discharge Plan Disposition Patient Disposition: HOME Condition: Stable Discharge Details Clinical Impression: Cellulitis Primary Care Provider: Unknown,Unknown ED Provider: Zack Trent Home Meds and New Rx's Prescriptions: New sulfamethoxazole-trimethoprim [Bactrim DS] 800-160 mg tablet 1 tab PO BID Qty: 20 RF: 0 Continued albuterol sulfate 90 mcg/actuation aerosol powdr breath activated 2 inh IH Q4H PRN (Reason: shortness of breath or wheezing) Qty: 1 RF: 0 cyclobenzaprine 10 mg tablet 10 mg PO TID PRN (Reason: muscle spasm) Qty: 10 RF: 0 gabapentin [Neurontin] 300 mg capsule 300 mg PO DAILY Qty: 18 RF: 0 Discharge Instructions Instructions: Cellulitis (ED) Additional Instructions: Bactrim as directed. [id number] Tylenol and/or Motrin as directed for discomfort. Warm moist soaks and/or compresses at a minimum of every 2 hours for 20 minutes. Please watch for new or worsening symptoms and return to the ER for any concerns. As we discussed if this is not improving with conservative measures, I strongly recommend reevaluation over the next 2-3 days as further evaluation, incision and drainage, etc. may be indicated. Medical Decision Making 20-year-old female with 2-3-day history of facial cellulitis after attempting to pop a pimple. The cellulitis appears to be very localized. She is afebrile. There is no pointing abscess or fluctuance. Patient is concerned that she may need to have this drained. She appears well, nontoxic, no lymphangitic st reaking or lymphadenopathy. There is no pain with movement of her eye. Clinically she appears well, nontoxic, to have mild localized cellulitis. I do not believe that obtaining a CBC and facial CT is indicated at this time. She does not have a obvious pointing abscess or fluid collection. I explained to her that first-line therapy would be antibiotics and warm compresses. She will require close follow-up as if this worsens and she may need further evaluation and/or incision and drainage but if we can avoid any potential scarring procedures on her face this would be advantageous. She is agreeable to this plan. First dose of Bactrim given now. Medical Records Medical records reviewed: Yes I reviewed the patient's medical records. HPI General Mode of arrival: ambulatory . Date/Time Provider Initiated Documentation: 01/21/21 08:16 . Limitations to Documentation: no limitations . Information obtained by: patient . HPI Narrative: This is a 20-year-old female, denies significant past medical history, tetanus status is up-to-date, presenting for right-sided facial infection. Patient states that just above her right eye 2 days ago she noticed a pimple, attempted to pop the pimple, subs equently the area has become slightly swollen, red and painful. When she popped the area, she states getting out a small amount of drainage. She denies any fever, eye pain, pain with movement of the eye, rash elsewhere on her body. She has tried using CBD oil with little relief. Related Data Home Medications Medication Instructions Recorded Confirmed albuterol sulfate 2 inh IH Q4H PRN #1 each 01/04/19 01/21/21 cyclobenzaprine 10 mg PO TID PRN #10 tab 01/11/21 01/21/21 gabapentin [Neurontin] 300 mg PO DAILY #18 cap 01/12/21 01/21/21 sulfamethoxazole-trimethoprim 1 tab PO BID #20 tab 01/21/21 [Bactrim DS] Previous Rx's Medication Instructions Recorded albuterol sulfate 2 inh IH Q4H PRN #1 each 01/04/19 cyclobenzaprine 10 mg PO TID PRN #10 tab 01/11/21 gabapentin [Neurontin] 300 mg PO DAILY #18 cap 01/12/21 sulfamethoxazole-trimethoprim 1 tab PO BID #20 tab 01/21/21 [Bactrim DS] Allergies Allergy/AdvReac Type Severity Reaction Status Date / Time pineapple AdvReac Mild Skin Rash Unverified 01/21/21 08:27 General Stated Complaint: Cellulitis JAMIE: 4 Review of Systems Constitutional Constitutional: Denies fever(s) and Denies headache(s) Eyes Eyes: Denies change in vision and Denies eye discharge ENT Ears, Nose, Mouth, and Throat: Denies headache(s) and Denies sore throat Integumentary/Breasts Skin/Breast: Reports erythema Neurologic Neurologic: Denies headache(s) [facility] Active Problem List Cervical herniated disc (Acute) Cervical disc disorder with radiculopathy (Acute) Pre-conception counseling (Acute) Contraception (Acute) Depression (Acute 09/14/14) Medical History History of self mutilation Cutting L arm Hx of maternal chlamydia infection, currently Teen Surgical History No significant past surgical history Family History Mother Substance abuse Alcohol abuse Mental disorder anxietyy/depression Father Healthy adult on routine physical examination Other Substance abuse maternal relatives Alcohol abuse maternal side Personal history of malignant neoplasm PGM-breast Heart disease MGM Multiple sclerosis MGM Social History Smoking/Tobacco Use Status: Never Smoking risk assessment performed?: Yes Alcohol Intake: current Alcohol Intake frequency: holidays/special occasions only Drug use: Daily Substance use type: marijuana Details: MDMA sometimes Do you feel safe at home: Yes Do you feel safe in your relationship?: Yes History History 1 Para Hx # Term Pregnancies Multiple births Hx # Pregnancies Ectopic pregnancies AB induced Hx Number of Living Children 0 AB spontaneous 1 Past Pregnancies Del. Date GA/Weeks # Outcome Route Wgt Sex Labor Lgth Anesthes ia Location [facility] 08/26/18 Unsuccessful Delivery Date: 08/26/18 Bernadine Man LPN Exam Const General: cooperative, healthy appearing, comfortable and no acute distress Orientation: alert and awake HENMT Head: normal to inspection, normocephalic and atraumatic Ears: external ears normal, TM's normal bilaterally and EAC's normal General nose exam: external nose normal Face images: 1. Mild swelling, erythema, tenderness. There is no fluctuance or pointing abscess. Skin appears to be intact. The area is slightly indurated. Mouth: oral mucosae normal and moist mucous membranes Throat: posterior oropharynx normal Eyes Alignment and Position: alignment normal Conjunctivae: conjunctivae normal Sclera: sclerae normal Cornea: corneas normal Pupils: PERRL EOM: EOM intact bilaterally Other: Right upper lid with minimal edema. Neck Neck: normal visual inspection, no lymphadenopathy, trachea midline and supple Resp Effort & Inspection: normal respiratory effort and able to speak in complete sentences Cardio Rate: regular rate Rhythm: regular rhythm Skin General skin exam: erythema Neuro General: patient alert, patient awake, moves all extremities and no focal motor deficits Sensory Exam: no sensory deficits noted Psych Appearance: grossly normal Mental Status: mental status grossly normal Course Vital Signs Vital signs: Vital Signs Temperature 36.3 C L 01/21/21 08:23 Pulse 96 H 01/21/21 08:23 Respiratory Rate 16 01/21/21 08:23 Blood Pressure 124/81 01/21/21 08:23 Pulse Oximetry 99 01/21/21 08:23 Temperature 36.3 C L 01/21/21 08:23 Temperature Source Skin 01/21/21 08:23 Pulse 96 H 01/21/21 08:23 Respiratory Rate 16 01/21/21 08:23 Respiratory Effort Non-Labored 01/21/21 08:23 Blood Pressure 124/81 01/21/21 08:23 Blood Pressure Position Sitting 01/21/21 08:23 Pulse Oximetry 99 01/21/21 08:23 Oxygen Delivery Method Room Air 01/21/21 08:23 Oxygen Flow Rate 0 01/21/21 08:23 Pain Level 5 01/21/21 08:23
[2021-01-21] MEDS: Sulfameth/Trimeth DS TAB 1 TAB PO (08:45)
[2021-01-21 08:56] VITALS: BP 124/81; PULSE 96; RESP 16; TEMP 36.3; O2SAT 99
== END 2021-01-21 08:55 | disposition home or self-care (01) ==
PROVIDERS: Emergency Provider Physician Assistant
DX: L03.211 Cellulitis of face (principal)
CPT/HCPCS: 99283

== ENCOUNTER 2021-05-12 09:57 | Outpatient (REF) | payer MEDICAID, SELFPAY ==
--- NOTE | 2021-05-12 08:45 | PAPFT_PTH ---
PATIENT: Roshni Shaffer LOC: [facility] U#:[id number] AGE/SX: 21/F ROOM: RE05/12/[address]: Kaylynn Bauer MD : [id number] BED: DIS: 05/12/2021 SPEC #: [id number] RECD: 05/12/21 13:04 STATUS: FLACA REBob #: [id number] EUGENIA: 05/12/21 08:[address]: Kaylynn Bauer [facility] Cytology RECD BY: Yue Butts ENTERED: 05/12/21 13:04 SP TYPE: PAPFT OTHR DR: Unknown,Unknown Tissues: 1 - CX/ENDOCX FOR PAP SMEARS Procedures: PAP THIN PREP/UVM Screening Comments: [id number] (CHLAMYDIA/GC)
[2021-05-15 15:31] LABS: Chlamydia Result Negative (Negative); GC Result Negative (Negative)
== END 2021-05-12 09:58 | disposition home or self-care (01) ==
LOC: LBN 09:57
PROVIDERS: Visit Provider Obstetrics & Gynecology
DX: Z12.4 Encounter for screening for malignant neoplasm of cervix (principal); Z11.3 Encounter for screening for infections with a predominantly sexual mode of transmission
CPT/HCPCS: 87491; 87591; 88142

== ENCOUNTER 2021-07-28 15:32 | Outpatient (REF) | payer MEDICAID, SELFPAY ==
[2021-07-31 14:56] LABS: Chlamydia Result Negative (Negative); GC Result Negative (Negative)
== END 2021-07-28 15:33 | disposition home or self-care (01) ==
LOC: LBN 15:32
PROVIDERS: Visit Provider Nurse Practitioner Family
DX: R35.0 Frequency of micturition (principal); Z11.3 Encounter for screening for infections with a predominantly sexual mode of transmission
CPT/HCPCS: 87491; 87591; 87086

== ENCOUNTER 2021-07-29 11:30 | Emergency (ER) | payer MEDICAID, SELFPAY ==
--- NOTE | 2021-07-29 11:32 | ED.GENADUL_ITS ---
Discharge Plan Disposition Patient Disposition: HOME Condition: Stable Discharge Details Clinical Impression: Vomiting Primary Care Provider: None,None ED Provider: Yessy Velasquez Home Meds and New Rx's Prescriptions: Continued valacyclovir 500 mg tablet 500 mg PO DAILY Qty: 60 6RF albuterol sulfate 90 mcg/actuation aerosol powdr breath activated 2 inh IH Q4H PRN (Reason: shortness of breath or wheezing) Qty: 1 0RF cyclobenzaprine 10 mg tablet 10 mg PO TID PRN (Reason: muscle spasm) Qty: 10 0RF gabapentin [Neurontin] 300 mg capsule 300 mg PO DAILY Qty: 18 0RF Rx Instructions: Take 1 today Take 2 tablets tomorrow, every 12 hours Take 3 tablets the following day every 8 hours Discharge Instructions Instructions: Acute Nausea and Vomiting (ED) Additional Instructions: Drink plenty of fluids and get plenty of rest. Alternate tylenol and motrin as needed and directed for pain. Take the Zofran as needed and directed for nausea and vomiting. You declined lab work in the emergency department today. This may need lead to missed or incomplete diagnoses. If your symptoms were to suddenly worsen and you have persistent vomiting or severe abdominal pain, it is recommended to return to the emergency department for reevaluation. Follow-up with your primary care doctor for reevaluation within the next week for reevaluation and for referral to urology for further evaluation of your chronic urinary frequency. Referrals: Devan Yang MD [ [facility] STAFF PHYSICIAN] - Discharge Data Discharge Date/Time-TO BE ENTERED AT DEPARTURE: 07/29/21 13:15 Discharge Physician: Yessy Velasquez Medical Decision Making 1145 -- 21-year-old female with a history of daily marijuana use presents with 4 episodes of vomiting for the past 2 hours after eating a doughnut and a lemon bar. Vitals within normal limits. Patient appears nontoxic. Her abdomen is soft but is tender in the suprapubic region and right upper quadrant. Differential diagnosis includes acute viral illness such as with food poisoning, other viral gastroenteritis, UTI, cholelithiasis, etc. Recommended to place an IV and check screening labs but patient is refusing. She is requesting only oral Zofran. She is agreeable to oral ibuprofen. Discussed with patient that our diagnosis will be limited without additional work-up including lab work and if indicated imaging. It is a weekend and ultrasound not available and I do not think that CT imaging is warranted at this time. Urine test negative. Urinalysis noted small leukocyte esterase with 5-10 WBCs, few bacteria but many epithelial cells and appeared contaminated. Of note, she was seen at the [facility] office yesterday with a negative urine and a u rine culture with a preliminary negative result. She also had swabs for GC and chlamydia yesterday which are still pending. 1310 -- Patient is requesting to leave. She states her nausea and pain is much improved. Discussed that without obtaining lab work, this can lead to missed or incomplete diagnoses and she understands and declines work up. She demonstrates capacity to make decisions. She was offered to be placed on urology list for follow-up of her chronic urinary frequency but declined stating she will follow- up with her primary care doctor at [facility]. She was given a Zofran bottle to go. Advised to follow up with the primary care doctor for re-evaluation. Usual and customary return precautions given prior to discharge. Medical Records Medical records reviewed: Yes I reviewed the patient's medical records. HPI General Mode of arrival: ambulatory . Date/Time Provider Initiated Documentation: 07/29/21 11:31 . Limitations to Documentation: no limitations . Information obtained by: patient . HPI Narrative: Patient is a 21-year-old female with a history of daily marijuana use who presents with vomiting 4 times prior to arrival after eating a doughnut and a lemon bar. Patient states the vomit was initially food and is now clear. She admits to some lower abdominal pain but states she feels that this is due to dry heaving and vomiting. She denies any fever, current chest pain, shortness of breath, diarrhea. She states she has chronic urinary frequency for which she has been following gynecology but has been told she does not have a UTI. She denies any recent travel or recent antibiotics. She states she is currently sexually active but denies any known exposure to STDs denies any vaginal discharge. Related Data Home Medications Medication Instructions Recorded Confirmed albuterol sulfate 90 mcg/actuation 2 inh inhalation Q4H PRN shortness 01/04/19 07/28/21 breath activated powder inhaler of breath or wheezing #1 ea cyclobenzaprine 10 mg tablet 10 mg PO TID PRN muscle spasm #10 01/11/21 07/28/21 tabs gabapentin 300 mg capsule 300 mg PO DAILY #18 caps 01/12/21 07/28/21 (Neurontin) valacyclovir 500 mg tablet 500 mg PO DAILY #60 tabs 05/12/21 07/28/21 Previous Rx's Medication Instructions Recorded albuterol sulfate 90 mcg/actuation 2 inh inhalation Q4H PRN shortness 01/04/19 breath activated powder inhaler of breath or wheezing #1 ea cyclobenzaprine 10 mg tablet 10 mg PO TID PRN muscle spasm #10 01/11/21 tabs gabapentin 300 mg capsule 300 mg PO DAILY #18 caps 01/12/21 (Neurontin) valacyclovir 500 mg tablet 500 mg PO DAILY #60 tabs 05/12/21 Allergies Allergy/AdvReac Type Severity Reaction Status Date / Time pineapple AdvReac Mild Skin Rash Verified 07/28/21 12:59 General Stated Complaint: Nausea/Vomit/Diar JAMIE: 4 Review of Systems All systems reviewed & are unremarkable except as noted in HPI and below Constitutional Constitutional: Denies chills, Denies excessive sweating, Denies fatigue, Denies fever(s), Denies weakness and Denies weight loss Eyes Eyes: Reports system reviewed and no additional complaints, except as documented and Denies blurry vision ENT Ears, Nose, Mouth, and Throat: Denies vertigo, Denies dizziness, Denies otalgia, Denies nasal congestion, Denies sore throat and Denies throat swelling Cardiovascular Cardiovascular: Denies chest pain, Denies syncope, Denies rapid heart rate and Denies dyspnea Respiratory Respiratory: Denies chest congestion, Denies cough, Denies pain on inspiration and Denies dyspnea Gastrointestinal Gastrointestinal: Denies abdominal pain, Denies diarrhea, Reports nausea and Reports vomiting Genitourinary Genitourinary: Denies hematuria, Denies dysuria and Denies flank pain Musculoskeletal Musculoskeletal: Denies back pain and Denies joint swelling Integumentary/Breasts Skin/Breast: Denies lesions and Denies rash Neurologic Neurologic: Denies behavioral changes, Denies confusion, Denies vertigo, Denies dizziness, Denies syncope, Denies localized weakness and Denies weakness Psychiatric Psychiatric: Denies behavioral changes, Denies confusion and Denies depression Endocrine Endocrine: Denies excessive sweating and Denies fatigue Hematologic/Lymphatic Hematologic/Lymphatic: Denies easy bruising and Denies lymphadenopathy Allergic/Immunologic Allergic/Immunologic: Denies throat swelling PFSH All Active Problems (Updated 07/29/21 @ 13:08 by Yessy Velasquez DO) Vomiting (Acute) Cervical disc disorder with radiculopathy (Acute) Depression (Acute 09/14/14) Medical History (Updated 07/29/21 @ 13:08 by Yessy Velasquez DO) History of self mutilation Cutting L arm Pre-conception counseling Surgical History No significant past surgical history Family History Mother Substance abuse Alcohol abuse Mental disorder anxietyy/depression Father Healthy adult on routine physical examination Other Substance abuse maternal relatives Alcohol abuse maternal side Personal history of malignant neoplasm PGM-breast Heart disease MGM Multiple sclerosis MGM Social History Smoking/Tobacco Use Status: Never Smoking risk assessment performed?: Yes Alcohol Intake: current Alcohol Intake frequency: holidays/special occasions only Drug use: Daily Substance use type: marijuana Details: MDMA sometimes Do you feel safe at home: Yes Do you feel safe in your relationship?: Yes Female Reproductive History Menstrual Age of Menarche: 14 Duration of menses: 3-5 days control method: none History History 1 Para Hx # Term Pregnancies Multiple births Hx # Pregnancies Ectopic pregnancies AB induced Hx Number of Living Children 0 AB spontaneous 1 Past Pregnancies Del. Date GA/Weeks # Outcome Route Wgt Sex Labor Lgth Anesthes ia Location [facility] 08/26/18 Unsuccessful Delivery Date: 08/26/18 Last Updated by: Bernadine Loya LPN D and C Exam Const General: cooperative Orientation: alert, awake and oriented x3 HENMT Head: normal to inspection Ears: hearing grossly normal bilaterally, external ears normal and TM's normal bilaterally General nose exam: external nose normal Face and sinus: normal facial exam Mouth: oral mucosae normal Teeth and gingiva: dentition normal Throat: posterior oropharynx normal Eyes General: appearance normal, both eyes and all related structures Eyelids: eyelids normal Pupils: PERRL EOM: EOM intact bilaterally Neck Neck: normal visual inspection Lymphatic: no lymphadenopathy noted Chest Chest: normal inspection of the chest Resp Effort & Inspection: normal respiratory effort and able to speak in complete sentences Auscultation: clear to auscultation bilaterally Cardio Rate: regular rate Rhythm: regular rhythm GI Inspection: normal to inspection Palpation: soft, not firm, no guarding, no hepatosplenomegaly, no masses and tender in the RUQ Auscultation: normal bowel sounds Skin General skin exam: no rashes or lesions noted Neuro General: patient alert and patient awake Cognition: normal cognition Speech: speech normal Gait: normal gait Motor: muscle tone normal throughout Sensory Exam: no sensory deficits noted Extrem General: normal to inspection, full ROM and capillary refill normal Psych Appearance: grossly normal Mental Status: mental status grossly normal Speech and Movement: speech and movement normal Affect: normal affect Thought Process: normal
[2021-07-29 11:34] VITALS: BP 108/60; PULSE 97; TEMP 36.7; O2SAT 99
[2021-07-29 11:47] LABS: Bilirubin Negative (Negative); Blood Negative (Negative); Clarity Clear (Clear); Glucose Negative (Negative); Ketones Negative (Negative); Leukocyte Esterase Small (Negative); Nitrite Negative (Negative); Urobilinogen 0.2 EU/dL (Up TO 0.2)
[2021-07-29 11:57] LABS: Crystals Negative HPF (Negative); Epithelial Cells Many HPF (Negative); RBC 0-2 HPF (0-2)
[2021-07-29 11:58] LABS: C & S Indicated? No/Sq. Contamination; Casts Negative LPF (Negative); Mucus Moderate (Negative)
--- NOTE | 2021-07-29 12:07 | NUR.NOTE ---
Nursing Note: pt refused an IV
[2021-07-29] MEDS: Ondansetron O.D.T. 4 MG TABEF PO (12:34)
[2021-07-29 12:41] LABS: Bacteria Few HPF (Negative)
[2021-07-29 12:48] LABS: COVID-19 PCR Negative (Negative); Influenza A PCR Negative (Negative); Influenza B PCR Negative (Negative); RSV PCR Negative (Negative)
[2021-07-29 13:20] LABS: Source Nasopharynx
== END 2021-07-29 13:15 | disposition home or self-care (01) ==
PROVIDERS: Emergency Provider Physician Assistant
DX: R11.2 Nausea with vomiting, unspecified (principal)
CPT/HCPCS: 80053; 81025; 83690; 87637; 99283; 81003; 81015; 85025

== ENCOUNTER 2021-11-01 13:02 | Outpatient (REF) | payer MEDICAID, SELFPAY ==
[2021-11-02 15:26] LABS: Chlamydia Result Negative (Negative); GC Result Negative (Negative)
== END 2021-11-01 13:03 | disposition home or self-care (01) ==
LOC: LBN 13:02
PROVIDERS: Visit Provider Nurse Practitioner Women's Health
DX: Z11.3 Encounter for screening for infections with a predominantly sexual mode of transmission (principal)
CPT/HCPCS: 87491; 87591

== ENCOUNTER 2022-03-15 16:25 | Outpatient (REF) | payer MEDICAID, SELFPAY ==
[2022-03-17 14:00] LABS: Chlamydia Result Negative (Negative); GC Result Negative (Negative)
== END 2022-03-15 16:26 | disposition home or self-care (01) ==
LOC: LBN 16:25
PROVIDERS: Visit Provider Advanced Practice Midwife
DX: Z11.3 Encounter for screening for infections with a predominantly sexual mode of transmission (principal)
CPT/HCPCS: 87491; 87591

== ENCOUNTER 2022-04-13 14:42 | Outpatient (CLI) | payer MEDICAID, SELFPAY ==
[2022-04-13 15:42] LABS: HCG Quant, Pregnancy 2744 mIU/mL (1-3)
[2022-04-14 09:36] LABS: HIV-1/2 Ag & Ab Screen Negative (Negative)
[2022-04-16 09:37] LABS: Hepatitis B Surface Ag Negative (Negative)
[2022-04-16 09:50] LABS: Hepatitis C Ab w Rflx HCV PCR Negative (Negative)
[2022-04-16 10:44] LABS: HSV Type 1 Ab, IgG Negative (Negative); HSV Type 2 Ab, IgG Positive (Negative)
[2022-04-17 23:55] LABS: Syphilis IgG w/Reflex Nonreactive (Nonreactive)
== END 2022-04-13 14:43 | disposition home or self-care (01) ==
LOC: LBO 14:42
PROVIDERS: Visit Provider Advanced Practice Midwife
DX: Z11.3 Encounter for screening for infections with a predominantly sexual mode of transmission (principal); Z34.91 Encounter for supervision of normal pregnancy, unspecified, first trimester; Z87.59 Personal history of other complications of pregnancy, childbirth and the puerperium; Z86.19 Personal history of other infectious and parasitic diseases
CPT/HCPCS: 36415; 86803; 87340; 87389; 84702; 86695; 86696; 86780

== ENCOUNTER 2022-04-16 02:55 | Outpatient (CLI) | payer MEDICAID, SELFPAY ==
[2022-04-16 15:50] LABS: HCG Quant, Pregnancy 4618 mIU/mL (1-3)
== END 2022-04-16 02:56 | disposition home or self-care (01) ==
LOC: LBO 02:55
PROVIDERS: Advanced Practice Midwife; Visit Provider Advanced Practice Midwife
DX: Z34.91 Encounter for supervision of normal pregnancy, unspecified, first trimester (principal)
CPT/HCPCS: 36415; 84702

== ENCOUNTER 2022-05-02 13:30 | Emergency (ER) | payer MEDICAID, SELFPAY ==
[2022-05-02 13:40] VITALS: BP 119/63; PULSE 87; RESP 18; TEMP 36.4; O2SAT 99
--- NOTE | 2022-05-02 14:00 | RT.EKG_ITS ---
APPROVED REPORT Exam: Resting ECG Reason for Exam: abdominal pain Patient Location: E HR:84 bpm ECG Measurements Heart Rate 84 AXIS AK 158 P 33 QRSd 83 QRS 36 QT 331 T 17 QTc 392 Conclusion Sinus rhythm...normal P axis, V-rate 60- 99
--- NOTE | 2022-05-02 14:15 | DI.US_ITS ---
Exam(s) US OB 1ST TRIMESTER EXAM: US OB 1ST TRIMESTER CLINICAL HISTORY: abd pain, 7 weeks . COMPARISON: No exams were available for comparison TECHNIQUE: Transabdominal Transvaginal first trimester obstetrical ultrasound performed. FINDINGS: Sonographic images demonstrate a single intrauterine gestation. A yolk sac and pole are seen. Sonographically assessed gestational age based upon crown-rump length of 3.6 millimeters is: 6+ 0 wee ks, less than the expected age 7 weeks 6 days. Estimated date of delivery based on this ultrasound is: 26 December 2022 Estimated date of delivery based upon LMP: 13 December 2022 heart rate motion: None detected Yolk sac appears large at 5 millimeters. No free fluid identified. Both ovaries appear sonographically normal. Pelvic Measurments Uterus: 8 x 4.3 x 5.2 cm Rt Ovary: 3.7 x 1.8 x 2.2 cm Lt Ovary: 2.2 x 1.9 x 2.4 cm IMPRESSION: Nonviable disc station with crown-rump length corresponding to 6 weeks 0 days DATA REPOSITORY:
[2022-05-02 15:11] LABS: Abs Immature Grans 0.04 10^3/uL (0.0-0.06); Absolute Basophil Count 0.02 10^3/uL (0.0-0.2); Absolute Eosinophil Count 0.09 10^3/uL (0.0-0.7); Absolute Monocyte Count 0.73 10^3/uL (0.1-0.8); Absolute Neutrophil Count 6.17 10^3/uL (1.2-6.7); Basophils % 0.2; HCT 39.4 % (36.0-46.0); Immature Grans % 0.5; Lymphocytes % 19.4; MCH 33.7 pg (27.0-33.0); MCHC 35.5 % (32.0-36.0); MCV 95 fL (80-95); MPV 10.2 fL (8.0-11.0); Monocytes % 8.3; Neutrophils % 70.6; Platelet Count 177 10^3/uL (130-400); RBC 4.15 10^6/uL (3.93-5.22); RDW 11.6 % (11.7-14.6); RDW-SD 39.7 fL; WBC 8.75 10^3/uL (4.4-10.8)
[2022-05-02 15:34] LABS: ALT 21 U/L (14-59); AST 13 U/L (15-37); Albumin 4.2 g/dL (3.4-5.0); Alkaline Phosphatase 54 U/L (46-116); Anion Gap 10.6 mmol/L (3-11); BUN 8 mg/dL (7-18); Bilirubin, Total 0.7 mg/dL (0.2-1.0); CO2 25.4 mmol/L (21.0-32.0); CREATININE 0.5 mg/dL (0.55-1.02); Calcium 9.1 mg/dL (8.5-10.1); Chloride 103 mmol/L (98-107); Estimated GFR 135.91 (mL/min/1.73m2); Glucose 87 mg/dL (74-106); Lipase 25 U/L (16-77); Potassium 3.4 mmol/L (3.5-5.1); Sodium 139 mmol/L (136-145); Total Protein 7.7 g/dL (6.4-8.2)
[2022-05-02 15:55] LABS: HCG Quant, Pregnancy 7174 mIU/mL (1-3)
--- NOTE | 2022-05-02 15:55 | ED.GENADUL_ITS ---
Discharge Plan Disposition Patient Disposition: Home Discharge Details Clinical Impression: Threatened miscarriage Primary Care Provider: Unknown,Unknown ED Provider: Yue Robin Home Meds and New Rx's Prescriptions: Continued valacyclovir [Valtrex] 1 gram tablet 1,000 mg PO BID 7 Days Qty: 14 5RF Vitamin Plus Low Iron 27 mg iron- 1 mg tablet 1 tab PO DAILY Qty: 30 8RF albuterol sulfate 90 mcg/actuation aerosol powdr breath activated 2 inh IH Q4H PRN (Reason: shortness of breath or wheezing) Qty: 1 0RF Discharge Instructions Additional Instructions: Please follow-up with [facility] care early next week, they will talk to you about options, if you begin to bleed, you should call the office to be assessed earlier Take Tylenol as needed for pain Return earlier with new or worsening complaints including fever, chills, vaginal bleeding Referrals: Rena Barker MD [ [facility] STAFF PHYSICIAN] - Discharge Data Discharge Date/Time-TO BE ENTERED AT DEPARTURE: 05/02/22 16:59 Medical Decision Making This 22-year-old female presents with concern for threatened miscarriage with suprapubic cramping consistent with her prior miscarriage Ultrasound shows likely nonviable but no heart motion noted No vaginal bleeding, Rh pending Case discussed with Dr. Barker who will see patient in close outpatient follow-up Patient without active bleeding, no acute distress, urinalysis without acute abnormality Quant 7146, increased from 4126, will have repeat assessment likely early next week and given the threshold to return should she have new or worsening complaints Reviewed ultrasound interpretation from radiology, diagnostic labs, and urinalysis HPI General Date/Time Provider Initiated Documentation: 05/02/22 14:07 . HPI Narrative: This 22-year-old female presents with report of being 7 weeks with some abdominal cramping. Denies any risk of sexually transmitted disease. States that she has been told that she has an IUP. Ready for discharge denies any fever or chills. Denies any chest pain or shortness of breath. Related Data Home Medications Medication Instructions Recorded Confirmed albuterol sulfate 90 mcg/actuation 2 inh inhalation Q4H PRN shortness 01/04/19 04/25/22 breath activated powder inhaler of breath or wheezing #1 ea vitamin with calcium 1 tab PO DAILY #30 tabs 04/09/22 04/25/22 no.72-iron 27 mg-folic acid 1 mg tablet ( Vitamins Plus Low Iron) valacyclovir 1 gram tablet 1,000 mg PO BID 7 days #14 tabs 04/09/22 04/25/22 (Valtrex) Previous Rx's Medication Instructions Recorded albuterol sulfate 90 mcg/actuation 2 inh inhalation Q4H PRN shortness 01/04/19 breath activated powder inhaler of breath or wheezing #1 ea vitamin with calcium 1 tab PO DAILY #30 tabs 04/09/22 no.72-iron 27 mg-folic acid 1 mg tablet ( Vitamins Plus Low Iron) valacyclovir 1 gram tablet 1,000 mg PO BID 7 days #14 tabs 04/09/22 (Valtrex) Allergies Allergy/AdvReac Type Severity Reaction Status Date / Time pineapple AdvReac Mild Skin Rash Verified 05/03/22 12:52 General Stated Complaint: Abd Prob JAMIE: 3 PFSH All Active Problems (Updated 05/03/22 @ 13:33 by Rena Barker MD) Rh negative state in antepartum period (Acute) Blighted ovum (Acute) Threatened miscarriage (Acute) History of miscarriage (Acute) (Acute) test negative (Acute) Encounter for screening examination for sexually transmitted disease (Acute) History of herpes genitalis (Acute) Irregular menstruation, unspecified (Acute) Depression (Acute 09/14/14) Medical History (Updated 05/03/22 @ 13:33 by Rena Barker MD) Cervical disc disorder with radiculopathy History of self mutilation Cutting L arm Pre-conception counseling Surgical History No significant past surgical history Family History Mother Substance abuse Alcohol abuse Mental disorder anxietyy/depression Father Healthy adult on routine physical examination Other Substance abuse maternal relatives Alcohol abuse maternal side Personal history of malignant neoplasm PGM-breast Heart disease MGM Multiple sclerosis MGM Social History Smoking/Tobacco Use Status: Never Smoking risk assessment performed?: Yes Alcohol Intake: current Alcohol Intake frequency: holidays/special occasions only Drug use: Daily Substance use type: marijuana Details: MDMA sometimes Do you feel safe at home: Yes Do you feel safe in your relationship?: Yes Female Reproductive History Menstrual Age of Menarche: 14 Duration of menses: 3-5 days control method: none History History 2 Para Hx # Term Pregnancies 0 Multiple births Hx # Pregnancies Ectopic pregnancies AB induced Hx Number of Living Children 0 AB spontaneous 1 Past Pregnancies Del. Date GA/Weeks # Preg Succ Route Wgt Sex Labor Lgth Anesth esia Location [facility] 08/26/18 Delivery Date: 08/26/18 Last Updated by: Bernadine Loya LPN D and C Exam Narrative Exam Narrative: Patient is calm and cooperative, nonlabored respirations, rate rhythm regular cardiovascularly, mild suprapubic tenderness without any additional, no pallor, alert and oriented Course Vital Signs Vital signs: Vital Signs Temperature 36.4 C L 05/02/22 13:40 Pulse 87 05/02/22 13:40 Respiratory Rate 18 05/02/22 13:40 Blood Pressure 119/63 05/02/22 13:40 Pulse Oximetry 99 05/02/22 13:40 Temperature 36.4 C L 05/02/22 13:40 Pulse 87 05/02/22 13:40 Respiratory Rate 18 05/02/22 13:40 Respiratory Effort Normal 05/02/22 13:44 Blood Pressure 119/63 05/02/22 13:40 Blood Pressure Position Supine 05/02/22 13:40 Pulse Oximetry 99 05/02/22 13:40 Oxygen Delivery Method Room Air 05/02/22 13:40 Oxygen Flow Rate 0 05/02/22 13:40 Pain Level 6 05/02/22 13:40 Lab/Test Results Lab/Test Results: Laboratory Tests Range/Units 05/02/22 05/02/22 05/02/22 14:22 15:04 15:04 WBC (4.4-10.8) 10^3/uL 8.75 RBC (3.93-5.22) 10^6/uL 4.15 Hgb (11.2-15.7) g/dL 14.0 Hct (36.0-46.0) % 39.4 MCV (80-95) fL 95 MCH (27.0-33.0) pg 33.7 H MCHC (32.0-36.0) % 35.5 RDW (11.7-14.6) % 11.6 L Plt Count (130-400) 10^3/uL 177 MPV (8.0-11.0) fL 10.2 Immature Gran % 0.5 Neutrophils % 70.6 Lymphocytes % 19.4 Monocytes % 8.3 Eosinophils % 1.0 Basophils % 0.2 Nucleated RBC % (0.0-0.3) % 0.0 Absolute Neutrophils (1.2-6.7) 10^3/uL 6.17 Absolute Lymphocytes (1.2-3.4) 10^3/uL 1.70 Absolute Monocytes (0.1-0.8) 10^3/uL 0.73 Absolute Eosinophils (0.0-0.7) 10^3/uL 0.09 Absolute Basophils (0.0-0.2) 10^3/uL 0.02 Sodium (136-145) mmol/L 139 Potassium (3.5-5.1) mmol/L 3.4 L Chloride (98-107) mmol/L 103 Carbon Dioxide (21.0-32.0) mmol/L 25.4 Anion Gap (3-11) mmol/L 10.6 BUN (7-18) mg/dL 8 Creatinine (0.55-1.02) mg/dL 0.5 L Est GFR (CKD-EPI 2020) (mL/min/1.73m2) 135.91 Glucose (74-106) mg/dL 87 Calcium (8.5-10.1) mg/dL 9.1 Total Bilirubin (0.2-1.0) mg/dL 0.7 AST (15-37) U/L 13 L ALT (14-59) U/L 21 Alkaline Phosphatase (46-116) U/L 54 Total Protein (6.4-8.2) g/dL 7.7 Albumin (3.4-5.0) g/dL 4.2 Lipase (16-77) U/L 25 Serum HCG, Qual Cancelled Beta HCG, Quant (1-3) mIU/mL Range/Units 05/02/22 15:04 WBC (4.4-10.8) 10^3/uL RBC (3.93-5.22) 10^6/uL Hgb (11.2-15.7) g/dL Hct (36.0-46.0) % MCV (80-95) fL MCH (27.0-33.0) pg MCHC (32.0-36.0) % RDW (11.7-14.6) % Plt Count (130-400) 10^3/uL MPV (8.0-11.0) fL Immature Gran % Neutrophils % Lymphocytes % Monocytes % Eosinophils % Basophils % Nucleated RBC % (0.0-0.3) % Absolute Neutrophils (1.2-6.7) 10^3/uL Absolute Lymphocytes (1.2-3.4) 10^3/uL Absolute Monocytes (0.1-0.8) 10^3/uL Absolute Eosinophils (0.0-0.7) 10^3/uL Absolute Basophils (0.0-0.2) 10^3/uL Sodium (136-145) mmol/L Potassium (3.5-5.1) mmol/L Chloride (98-107) mmol/L Carbon Dioxide (21.0-32.0) mmol/L Anion Gap (3-11) mmol/L BUN (7-18) mg/dL Creatinine (0.55-1.02) mg/dL Est GFR (CKD-EPI 2020) (mL/min/1.73m2) Glucose (74-106) mg/dL Calcium (8.5-10.1) mg/dL Total Bilirubin (0.2-1.0) mg/dL AST (15-37) U/L ALT (14-59) U/L Alkaline Phosphatase (46-116) U/L Total Protein (6.4-8.2) g/dL Albumin (3.4-5.0) g/dL Lipase (16-77) U/L Serum HCG, Qual Beta HCG, Quant (1-3) mIU/mL 7174 H
[2022-05-02 16:04] LABS: Bilirubin Negative (Negative); Blood Negative (Negative); Clarity Sl Cloudy (Clear); Glucose Negative (Negative); Ketones 15 mg/dL (Negative); Leukocyte Esterase Trace (Negative); Nitrite Negative (Negative); Urobilinogen 0.2 mg/dL (Up to 0.2)
[2022-05-02 16:30] LABS: Bacteria Few HPF (Negative); Crystals Negative HPF (Negative); Epithelial Cells Moderate HPF (Negative); RBC Negative HPF (0-2); WBC 0-2 HPF (0-5)
[2022-05-02 16:31] LABS: C & S Indicated? No/Sq. Contamination; Mucus Trace (Negative)
--- NOTE | 2022-05-02 17:04 | NUR.NOTE ---
Nursing Note: Referral faxed to [facility] (consulted with Dr Barker) threatened / early next week.
== END 2022-05-02 16:59 | disposition home or self-care (01) ==
PROVIDERS: Emergency Provider Physician Assistant
DX: O20.0 Threatened abortion (principal); Z3A.01 Less than 8 weeks gestation of pregnancy
CPT/HCPCS: 36415; 80053; 83690; 86850; 86900; 86901; 90384; 93005; 99284; 76801; 81003; 81015; 84702; 84703; 85025; 93010; 99283

== ENCOUNTER 2022-08-13 14:51 | Emergency (ER) | payer MEDICAID, SELFPAY ==
[2022-08-13 14:56] VITALS: BP 126/49; PULSE 88; RESP 15; TEMP 36.6; O2SAT 98
--- NOTE | 2022-08-13 16:59 | W.ED.GENAD ---
Discharge Plan Disposition Patient Disposition: Home Discharge Details Chief Complaint: RashLesion Clinical Impression: Rash Primary Care Provider: None,None ED Provider: Vinicius Shepherd Home Meds and New Rx's Prescriptions: No Action albuterol sulfate 90 mcg/actuation aerosol powdr breath activated 2 inh IH Q4H PRN (Reason: shortness of breath or wheezing) Qty: 1 0RF permethrin 5 % cream See Rx Instructions .ROUTE .COMPLEX Patient Comments: APPLY LIBERALLY TO SKIN AND MASSAGE IN CREAM FROM HEAD TO SOLES OF FEET , LEAVE ON FOR 8 TO 14 HOURS OVERNIGHT BEFORE WASHING OFF Rx Instructions: APPLY LIBERALLY TO SKIN AND MASSAGE IN CREAM FROM HEAD TO SOLES OF FEET , LEAVE ON FOR 8 TO 14 HOURS OVERNIGHT BEFORE WASHING OFF triamcinolone acetonide 0.1 % cream See Rx Instructions .ROUTE .COMPLEX Patient Comments: APPLY A SMALL AMOUNT TO AFFECTED AREA TWO TIMES A DAY FOR NO LONGER THATN 10 DAYS Rx Instructions: APPLY A SMALL AMOUNT TO AFFECTED AREA TWO TIMES A DAY FOR NO LONGER THATN 10 DAYS mupirocin 2 % ointment See Rx Instructions .ROUTE .COMPLEX Patient Comments: APPLY A SMALL AMOUNT TO AFFECTED AREA THREE TIMES A DAY Rx Instructions: APPLY A SMALL AMOUNT TO AFFECTED AREA THREE TIMES A DAY valacyclovir [Valtrex] 1 gram tablet 1,000 mg PO BID PRN Discharge Instructions Instructions: Acute Rash (ED) Additional Instructions: Please follow-up with dermatology referral. Please return to the emergency department for any worsening symptom Medical Decision Making 22-year-old female presents with maculopapular rash over the past 2 to 3 weeks, patient does describe prior vesicles, now with areas of crusted papules dispersed across arms and legs and abdomen. No oral mucosal involvement no conjunctival involvement. Patient is afebrile nontoxic. Works at a [employer], also has recently been camping, did not contract varicella as a child. Consider resolving varicella versus less likely disseminated poison raymundo versus breakthrough for scabies given location on body and the fact that patient's close home family numbers including boyfriend and boyfriend's son do not have symptoms. No evidence of purpura petechia or bulla or systemic signs of illness to suggest life-threatening exanthem. Trial of dexamethasone and Benadryl. Recommended oatmeal bath. Home care instructions and strict return precautions to be given 18: 05 resting comfortably no acute distress. Home care instructions return precautions given. Will be given dermatology referral HPI General Date/Time Provider Initiated Documentation: 08/13/22 16:47. 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 No fevers chills nausea vomiting or systemic signs of illness. Endorses that she did not get chickenpox when she was younger. Related Data Home Medications Medication Instructions Recorded Confirmed albuterol sulfate 90 mcg/actuation 2 inh inhalation Q4H PRN shortness 01/04/19 08/13/22 breath activated powder inhaler of breath or wheezing #1 ea mupirocin 2 % topical ointment See Rx Instructions .Route .COMPLEX 08/13/22 08/13/22 permethrin 5 % topical cream See Rx Instructions .Route .COMPLEX 08/13/22 08/13/22 triamcinolone acetonide 0.1 % See Rx Instructions .Route .COMPLEX 08/13/22 08/13/22 topical cream valacyclovir 1 gram tablet 1,000 mg PO BID PRN 08/13/22 08/13/22 (Valtrex) Previous Rx's Medication Instructions Recorded albuterol sulfate 90 mcg/actuation 2 inh inhalation Q4H PRN shortness 01/04/19 breath activated powder inhaler of breath or wheezing #1 ea Allergies Allergy/AdvReac Type Severity Reaction Status Date / Time pineapple AdvReac Mild Skin Rash Verified 08/13/22 14:59 General Stated Complaint: RashLesion JAMIE: 4 Review of Systems Narrative: Review of Systems Constitutional: negative Eyes: negative ENT: negative Cardiovascular: negative Respiratory: negative Gastrointestinal: negative : negative Musculoskeletal: negative Skin: Rash Neurologic: negative Psych: negative PFSH All Active Problems (Updated 08/13/22 @ 18:06 by Vinicius Shepherd MD) Rash (Acute) Miscarriage (Acute) 04/05/2022. 6w embryonic demise. Rx Misoprostol. Rh negative state in antepartum period (Acute) History of miscarriage (Acute) Encounter for screening examination for sexually transmitted disease (Acute) History of herpes genitalis (Acute) Irregular menstruation, unspecified (Acute) Depression (Acute 09/14/14) Medical History (Updated 08/13/22 @ 18:06 by Vinicius Shepherd MD) Cervical disc disorder with radiculopathy Seen at [facility] [place] [facility]. Patient received trigger point injections. History of self mutilation Cutting L arm Pre-conception counseling Surgical History No significant past surgical history Family History Mother Substance abuse Alcohol abuse Mental disorder anxietyy/depression Father Healthy adult on routine physical examination Other Substance abuse maternal relatives Alcohol abuse maternal side Personal history of malignant neoplasm PGM-breast Heart disease MGM Multiple sclerosis MGM Social History Smoking/Tobacco Use Status: Never Smoking risk assessment performed?: Yes Alcohol Intake: current Alcohol Intake frequency: holidays/special occasions only Drug use: Daily Substance use type: marijuana Details: MDMA sometimes Do you feel safe at home: Yes Do you feel safe in your relationship?: Yes Female Reproductive History Menstrual Age of Menarche: 14 Duration of menses: 3-5 days control method: none History History 2 Para Hx # Term Pregnancies 0 Multiple births Hx # Pregnancies Ectopic pregnancies AB induced Hx Number of Living Children 0 AB spontaneous 2 Past Pregnancies Del. Date GA/Weeks # Preg Succ Route Wgt Sex Labor Lgth Anesthesia Location [facility] 08/26/18 05/03/22 No No Delivery Date: 08/26/18 Last Updated by: Bernadine Loya LPN D and C Delivery Date: 05/03/22 Last Updated by: Halie Patrick LPN blighted ovum Exam Narrative Exam Narrative: Physical Examination General: alert, awake, cooperative, resting comfortably, no acute distress HEENT: normocephalic, atraumatic; PERRL, EOM intact, conjunctiva normal; no nasal discharge; moist mucous membranes, oral and pharyngeal mucosa normal, tolerating secretions Neck: supple, trachea midline; full ROM Chest: normal to inspection Respiratory: normal respiratory effort, speaking in full sentences, clear to auscultation, no wheezing, rales or rhonchi Cardiac: regular rate, regular rhythm, S1S2 intact, no murmurs rubs or gallops GI: abdomen soft, non-tender, non-distended; no palpable mass or hepatosplenomegaly Skin: Maculopapular rash no noticeable vesicles however areas of larger scab papules that could have been vesicles/pustules, involving arms abdomen legs Neuro: AAOx3, normal speech, moving all extremities Psych: Appropriate mood and affect Course Vital Signs Vital signs: Vital Signs Temperature 36.6 C 08/13/22 14:56 Pulse 88 08/13/22 14:56 Respiratory Rate 15 08/13/22 14:56 Blood Pressure 126/49 L 08/13/22 14:56 Pulse Oximetry 98 08/13/22 14:56 Temperature 36.6 C 08/13/22 14:56 Temperature Source Temporal Artery Scan 08/13/22 14:56 Pulse 88 08/13/22 14:56 Respiratory Rate 15 08/13/22 14:56 Respiratory Effort Normal 08/13/22 14:58 Blood Pressure 126/49 L 08/13/22 14:56 Blood Pressure Position Sitting 08/13/22 14:56 Pulse Oximetry 98 08/13/22 14:56 Oxygen Delivery Method Room Air 08/13/22 14:56 Oxygen Flow Rate 0 08/13/22 14:56 Pain Level 8 08/13/22 14:56
[2022-08-13] MEDS: Dexamethasone 10 MG/ML VIAL IM (17:08)
[2022-08-13] MEDS: diphenhydrAMINE 25 MG CAP PO (17:08)
[2022-08-13 18:21] VITALS: BP 124/78; PULSE 88; RESP 16; TEMP 36.7; O2SAT 99
--- NOTE | 2022-08-13 18:21 | NUR.NOTE ---
Patient reffered to care management for dermatologyNursing Note:
--- NOTE | 2022-08-14 11:00 | CMACTNOTE_ITS ---
Date of service: 08/14/22 Time of Service: 11:00 Care Management Activity Note Activity Note Text Activity Note Text: Roshni is seen in the ED for an acute rash. At the request of ED provider, CM coordinates a referral to [facility] to assist Roshni in obtaining an appointment for further evaluation and treatment of the rash.
== END 2022-08-13 19:05 | disposition home or self-care (01) ==
PROVIDERS: Emergency Provider Emergency Medicine
DX: R21 Rash and other nonspecific skin eruption (principal)
CPT/HCPCS: 96372; 99284; J1100

== ENCOUNTER 2023-06-06 05:30 | Emergency (ER) | payer BC, SELFPAY ==
[2023-06-06 05:33] VITALS: BP 138/92; PULSE 102; RESP 18; TEMP 36.2; O2SAT 98
--- NOTE | 2023-06-06 05:53 | W.ED.GENAD ---
Discharge Plan Disposition Patient Disposition: Home Condition: Good Discharge Details Clinical Impression: Infected cat bite of little finger, Cat bite of left hand ED Provider: Jim Orr Home Meds and New Rx's Prescriptions: New amoxicillin-pot clavulanate 875-125 mg tablet 1 tab PO BID Qty: 20 0RF No Action albuterol sulfate 90 mcg/actuation aerosol powdr breath activated 2 inh IH Q4H PRN (Reason: shortness of breath or wheezing) Qty: 1 0RF permethrin 5 % cream See Rx Instructions .ROUTE .COMPLEX Patient Comments: APPLY LIBERALLY TO SKIN AND MASSAGE IN CREAM FROM HEAD TO SOLES OF FEET , LEAVE ON FOR 8 TO 14 HOURS OVERNIGHT BEFORE WASHING OFF Rx Instructions: APPLY LIBERALLY TO SKIN AND MASSAGE IN CREAM FROM HEAD TO SOLES OF FEET , LEAVE ON FOR 8 TO 14 HOURS OVERNIGHT BEFORE WASHING OFF triamcinolone acetonide 0.1 % cream See Rx Instructions .ROUTE .COMPLEX Patient Comments: APPLY A SMALL AMOUNT TO AFFECTED AREA TWO TIMES A DAY FOR NO LONGER THATN 10 DAYS Rx Instructions: APPLY A SMALL AMOUNT TO AFFECTED AREA TWO TIMES A DAY FOR NO LONGER THATN 10 DAYS mupirocin 2 % ointment See Rx Instructions .ROUTE .COMPLEX Patient Comments: APPLY A SMALL AMOUNT TO AFFECTED AREA THREE TIMES A DAY Rx Instructions: APPLY A SMALL AMOUNT TO AFFECTED AREA THREE TIMES A DAY valacyclovir [Valtrex] 1 gram tablet 1,000 mg PO BID PRN Discharge Instructions Instructions: Animal Bite (ED), Cellulitis (ED) Additional Instructions: At this time you have a very very early stage of an infection secondary to the cat bite. This requires antibiotic treatment. As we discussed together there is a more serious type of infection called flexor tenosynovitis that can occur if the infection progresses. This will be evidenced by worsening swelling worsening pain and significant pain with straightening of your finger. Please monitor very closely for any worsening of your symptoms. If you notice any symptoms like the aforementioned ones, please return immediately for reassessment as this may be a surgical emergency. If you notice any worsening symptoms in general it is prudent to return immediately for prompt physician reassessment. Please take the antibiotic as directed. Is been sent to your pharmacy on file. Please take 800 mg of Motrin every 6 hours and 1000 mg of Tylenol every 6 hours as needed for pain. If you notice any worsening of your symptoms, or any new symptoms such as vomiting, diarrhea, fever, chills, shortness of breath, chest pain, numbness, weakness, or fainting , please return immediately to the emergency department for reevaluation. Please follow up with your primary care provider as soon as possible for reassessment and reevaluation. As always, it was a pleasure participating in your medical care today. HPI General Date/Time Provider Initiated Documentation: 06/06/23 05:39. HPI Narrative: This is a pleasant 23-year-old female who is right-hand dominant who presents for a cat bite to her left hand. Patient states that this evening around 10 PM her cats had escaped and she went to get them and unfortunately when capturing her 1 cat it bit her left hand few times. She had pain throughout the night and then this morning the pain was notably worse and she came in for further assessment. She denies fever or chills. She denies chest pain or shortness of breath. In regards to her hand she had a small bite noted at the wrist and the fifth digit. She has pain with movement of the fifth digit. She admits to mild swelling. No other complaints at this time. She has not taken any NSAID therapy Related Data Home Medications Medication Instructions Recorded Confirmed albuterol sulfate 90 mcg/actuation 2 inh inhalation Q4H PRN shortness 01/04/19 08/13/22 breath activated powder inhaler of breath or wheezing #1 ea mupirocin 2 % topical ointment See Rx Instructions .Route .COMPLEX 08/13/22 08/13/22 permethrin 5 % topical cream See Rx Instructions .Route .COMPLEX 08/13/22 08/13/22 triamcinolone acetonide 0.1 % See Rx Instructions .Route .COMPLEX 08/13/22 08/13/22 topical cream valacyclovir 1 gram tablet 1,000 mg PO BID PRN 08/13/22 08/13/22 (Valtrex) amoxicillin 875 mg-potassium 1 tab PO BID #20 tabs 06/06/23 clavulanate 125 mg tablet Previous Rx's Medication Instructions Recorded albuterol sulfate 90 mcg/actuation 2 inh inhalation Q4H PRN shortness 01/04/19 breath activated powder inhaler of breath or wheezing #1 ea amoxicillin 875 mg-potassium 1 tab PO BID #20 tabs 06/06/23 clavulanate 125 mg tablet Allergies Allergy/AdvReac Type Severity Reaction Status Date / Time pineapple AdvReac Mild Skin Rash Verified 06/06/23 05:40 General Stated Complaint: AnimalBite JAMIE: 5 Review of Systems All systems reviewed & are unremarkable except as noted in HPI and below Exam Narrative Exam Narrative: 1.Const: Well-nourished, Well-developed, appearing stated age 2.Eyes: PERRL, no conjunctival injection, and symmetrical lids. 3.ENT: Atraumatic external nose and ears. Moist MM. Neck: Symmetric, trachea midline, No thyromegaly. 4.CVS: +S1/S2, No murmurs or gallops. Peripheral pulses 2+ and equal in all extremities. Brisk capillary refill in all extremities. 5.RESP: Unlabored respiratory effort. Clear to auscultation bilaterally. No wheezes rales or rhonchi 6.GI: Soft, Nontender/Nondistended, No hepatosplenomegaly. No guarding or rebound. 7.MSK: Left hand: Left hand demonstrates small bite favio over the dorsal aspect of the PIP joint, and the medial aspect at the PIP joint. There is also evidence of mild bite at the medial aspect of the wrist. Minimal swelling for the fifth digit. Minimal redness around these areas. No large joint effusions. Able to fully extend the patient's fifth digit. Mild pain does occur but this resolves shortly thereafter once the fingers fully extended. No sausage shaped digit. No tracking tenderness along the flexor sheath. Only tenderness at the site of the bite, no tracking tenderness at the distal mid or proximal component of the flexor sheath. 8.Skin: Please see musculoskeletal 9.Neuro: finish mixer II-XII grossly intact. Sensation grossly intact, no focal neurologic deficits. 10.Psych: (AAO) x3. Appropriate mood and affect Course Vital Signs Vital signs: Vital Signs Temperature 36.2 C L 06/06/23 05:33 Pulse 102 H 06/06/23 05:33 Respiratory Rate 18 06/06/23 05:33 Blood Pressure 138/92 H 06/06/23 05:33 Pulse Oximetry 98 06/06/23 05:33 Temperature 36.2 C L 06/06/23 05:33 Pulse 102 H 06/06/23 05:33 Respiratory Rate 18 06/06/23 05:33 Respiratory Effort Normal 06/06/23 05:36 Blood Pressure 138/92 H 06/06/23 05:33 Pulse Oximetry 98 06/06/23 05:33 Oxygen Delivery Method Room Air 06/06/23 05:33 Oxygen Flow Rate 0 06/06/23 05:33 Pain Level 7 06/06/23 05:33 Medical Decision Making This is a pleasant 23-year-old female who is right-hand dominant who presents for a cat bite to her left hand. Patient states that this evening around 10 PM her cats had escaped and she went to get them and unfortunately when capturing her 1 cat it bit her left hand few times. She had pain throughout the night and then this morning the pain was notably worse and she came in for further assessment. She denies fever or chills. She denies chest pain or shortness of breath. In regards to her hand she had a small bite noted at the wrist and the fifth digit. She has pain with movement of the fifth digit. She admits to mild swelling. No other complaints at this time. She has not taken any NSAID therapy Left hand demonstrates small bite favio over the dorsal aspect of the PIP joint, and the medial aspect at the PIP joint. There is also evidence of mild bite at the medial aspect of the wrist. Minimal swelling for the fifth digit. Minimal redness around these areas. No large joint effusions. Able to fully extend the patient's fifth digit. Mild pain does occur but this resolves shortly thereafter once the fingers fully extended. No sausage shaped digit. No tracking tenderness along the flexor sheath. Only tenderness at the site of the bite, no tracking tenderness at the distal mid or proximal component of the flexor sheath. At this time there is no clinical evidence of flexor tenosynovitis. No evidence of systemic sepsis or cellulitis. Patient does have a mild infection at the site of the bite. Tetanus is up-to-date. The cat's immunizations including rabies is up-to-date. Suspect early cellulitis. Will treat with Augmentin, will give Tylenol and Motrin and recommend continued NSAID therapy at home. I had a long 18-minute discussion with the patient making extremely clear signs and symptoms that would merit immediate return as well as represent concerning symptoms of flexor tenosynovitis. Patient understands the symptoms and will continue to monitor closely. No indication for IV antibiotics at this time. Discussed red flags for which to return. I have extensively reviewed the treatment plan and discharge instructions with the patient. I have addressed all patient concerns at this time. The patient was made aware of what symptoms to monitor for that would warrant a return to the emergency department. Discussed the plan with the patient, they demonstrate verbal understanding and agreement with our assessment and plan at this time. The documentation in this chart was dictated using [employer] dictation software. Please excuse any dictation errors. Quality:SDOH Health Related Social Needs: No Data to Display PFSH All Active Problems Cat bite of left hand (Acute) Infected cat bite of little finger (Acute) Miscarriage (Acute) 04/05/2022. 6w embryonic demise. Rx Misoprostol. Rh negative state in antepartum period (Acute) History of miscarriage (Acute) Encounter for screening examination for sexually transmitted disease (Acute) History of herpes genitalis (Acute) Irregular menstruation, unspecified (Acute) Depression (Acute 09/14/14) Medical History Cervical disc disorder with radiculopathy Seen [place] [facility] [facility]. Patient received trigger point injections. Pre-conception counseling History of self mutilation Cutting L arm Surgical History No significant past surgical history Family History Mother Substance abuse Alcohol abuse Mental disorder anxietyy/depression Father Healthy adult on routine physical examination Other Substance abuse maternal relatives Alcohol abuse maternal side Personal history of malignant neoplasm PGM-breast Heart disease MGM Multiple sclerosis MGM Social History Smoking/Tobacco Use Status: Never Smoking risk assessment performed?: Yes Alcohol Intake: current Alcohol Intake frequency: holidays/special occasions only Drug use: Daily Substance use type: marijuana Details: MDMA sometimes Do you feel safe at home: Yes Do you feel safe in your relationship?: Yes Female Reproductive History Menstrual Age of Menarche: 14 Duration of menses: 3-5 days control method: none History History 2 Para Hx # Term Pregnancies 0 Multiple births Hx # Pregnancies Ectopic pregnancies AB induced Hx Number of Living Children 0 AB spontaneous 2 Past Pregnancies Del. Date GA/Weeks # Preg Succ Route Wgt Sex Labor Lgth Anesthesia Location Prov Complic 08/26/18 05/03/22 No No Delivery Date: 08/26/18 Last Updated by: Bernadine Loya LPN D and C Delivery Date: 05/03/22 Last Updated by: Halie Patrick LPN blighted ovum
[2023-06-06] MEDS: Amox. 875/Clav. 125, 2 TABS/BTL 1 TAB PO (06:00)
[2023-06-06] MEDS: Acetaminophen 500 MG TAB 1000 MG PO (06:00)
[2023-06-06] MEDS: Amoxicillin 875/Clav. 125 TAB PO (06:01)
[2023-06-06] MEDS: Ibuprofen 800 MG TAB PO (06:01)
--- NOTE | 2023-06-06 06:07 | NUR.NOTE ---
Animal bite form faxed to Garret Kiser, [facility] in [place]. I asked incoming system controller to call Mr Kiser to confirm reciept of form and answer any questions he may have.Nursing Note:
[2023-06-06] MEDS: Chlorhexidine 4% 120 ML BTL (06:14)
== END 2023-06-06 06:24 | disposition home or self-care (01) ==
PROVIDERS: Emergency Provider Student in an Organized Health Care Education/Training Program
DX: S61.452A Open bite of left hand, initial encounter (principal); S60.947A Unspecified superficial injury of left little finger, initial encounter; L08.9 Local infection of the skin and subcutaneous tissue, unspecified; W55.01XA Bitten by cat, initial encounter
CPT/HCPCS: 99283

== ENCOUNTER 2023-08-12 13:41 | Outpatient (CLI) | payer BC, SELFPAY ==
[2023-08-12 11:19] LABS: HCG Quant, Pregnancy 192 mIU/mL (1-3)
== END 2023-08-12 13:42 | disposition home or self-care (01) ==
LOC: LBO 13:41
PROVIDERS: Visit Provider Obstetrics & Gynecology Gynecology
DX: N92.6 Irregular menstruation, unspecified (principal); Z32.01 Encounter for pregnancy test, result positive
CPT/HCPCS: 36415; 84702

== ENCOUNTER 2023-08-15 01:04 | Outpatient (CLI) | payer BC, SELFPAY ==
[2023-08-15 15:32] LABS: HCG Quant, Pregnancy 973 mIU/mL (1-3)
== END 2023-08-15 01:05 | disposition home or self-care (01) ==
LOC: LBO 01:04
PROVIDERS: Visit Provider Obstetrics & Gynecology Gynecology
DX: Z32.01 Encounter for pregnancy test, result positive (principal)
CPT/HCPCS: 36415; 84702

== ENCOUNTER 2023-08-26 12:19 | Outpatient (CLI) | payer BC, SELFPAY ==
[2023-08-26 12:23] LABS: HCG Quant, Pregnancy 36472 mIU/mL (1-3)
== END 2023-08-26 12:20 | disposition home or self-care (01) ==
LOC: LBO 12:19
PROVIDERS: Visit Provider Advanced Practice Midwife
DX: O26.899 Other specified pregnancy related conditions, unspecified trimester (principal); Z67.91 Unspecified blood type, Rh negative; O20.0 Threatened abortion; Z34.90 Encounter for supervision of normal pregnancy, unspecified, unspecified trimester
CPT/HCPCS: 36415; 86850; 90384; 84702

== ENCOUNTER 2023-08-28 02:28 | Outpatient (CLI) | payer BC, SELFPAY | END 2023-08-28 02:29 | disposition home or self-care (01) | LOC: LBO 02:28 | PROVIDERS: Visit Provider Advanced Practice Midwife | DX: O20.0 Threatened abortion (principal) | CPT/HCPCS: 36415; 84702 ==

== ENCOUNTER 2023-09-03 12:53 | Outpatient (REF) | payer BC, SELFPAY | END 2023-09-03 12:54 | disposition home or self-care (01) | LOC: LBN 12:53 | PROVIDERS: Visit Provider Obstetrics & Gynecology | DX: R50.9 Fever, unspecified (principal) | CPT/HCPCS: 87086 ==

== ENCOUNTER 2023-09-03 14:39 | Outpatient (CLI) | payer BC, SELFPAY ==
[2023-09-03 12:43] LABS: Abs Immature Grans 0.03 10^3/uL (0.0-0.06); Absolute Basophil Count 0.02 10^3/uL (0.0-0.2); Absolute Eosinophil Count 0.07 10^3/uL (0.0-0.7); Absolute Lymphocyte Count 1.48 10^3/uL (1.2-3.4); Absolute Neutrophil Count 6.58 10^3/uL (1.2-6.7); Basophils % 0.2 %; Eosinophils % 0.8 %; HCT 37.3 % (36.0-46.0); HGB 13.4 g/dL (11.2-15.7); Immature Grans % 0.3 %; Lymphocytes % 16.1 %; MCH 33.4 pg (27.0-33.0); MCHC 35.9 % (32.0-36.0); MCV 93 fL (80-95); MPV 10.4 fL (8.0-11.0); Monocytes % 10.9 %; Neutrophils % 71.7 %; Platelet Count 178 10^3/uL (130-400); RBC 4.01 10^6/uL (3.93-5.22); RDW 11.2 % (11.7-14.6); RDW-SD 38.5 fL; WBC 9.18 10^3/uL (4.4-10.8)
[2023-09-03 13:27] LABS: TSH (W/Ref FT4) 0.77 uIU/mL (0.36-3.74)
== END 2023-09-03 14:40 | disposition home or self-care (01) ==
LOC: LBO 14:40
PROVIDERS: Visit Provider Obstetrics & Gynecology
DX: R50.9 Fever, unspecified (principal); O26.851 Spotting complicating pregnancy, first trimester; O20.0 Threatened abortion; N92.0 Excessive and frequent menstruation with regular cycle
CPT/HCPCS: 36415; 84443; 84702; 85025

== ENCOUNTER 2023-09-14 15:58 | Emergency (ER) | payer BC, SELFPAY ==
[2023-09-14 16:00] VITALS: BP 112/76; PULSE 90; RESP 18; TEMP 36.9; O2SAT 97
--- NOTE | 2023-09-14 16:14 | ED.GENADUL_ITS ---
Discharge Plan Disposition Patient Disposition: Home Condition: Stable Discharge Details Clinical Impression: Nausea and vomiting during Primary Care Provider: Unknown,Unknown ED Provider: Tee Morfin Home Meds and New Rx's Prescriptions: Continued ondansetron 4 mg tablet,disintegrating 4 mg PO Q6H PRN (Reason: nausea and vomiting) Qty: 20 4RF Tums 300 mg (750 mg) tablet,chewable 300 mg PO QID PRN valacyclovir 1 gram tablet See Rx Instructions .ROUTE .COMPLEX Qty: 14 5RF Dose Instruction: TAKE ONE TABLET BY MOUTH TWICE A DAY FOR 7 DAYS Rx Instructions: TAKE ONE TABLET BY MOUTH TWICE A DAY FOR 7 DAYS albuterol sulfate 90 mcg/actuation aerosol powdr breath activated 2 inh IH Q4H PRN (Reason: shortness of breath or wheezing) Qty: 1 0RF Discharge Instructions Additional Instructions: Your blood work today was reassuring. Continue to take the Zofran as needed Follow-up with your SYSTEMS APPLICATIONS PROGRAMMING LEAD within 1 to 2 weeks especially if symptoms are continuing If you feel more ill, have persistent vomiting despite the Zofran return to the emergency department for reevaluation HPI General Date/Time Provider Initiated Documentation: 09/14/23 16:00 . Limitations to Documentation: no limitations . Information obtained by: patient . History of Present Illness 23 year old F presents to the emergency department with the chief complaint of Nausea vomiting, abdominal cramping, described as moderate, Patient started experiencing this week(s) (8) and it has been constant. No relieving factors improve symptom(s), No exacerbating factors reported . Patient notes denies chest pain and shortness of breath. Patient did receive the following treatments prior to arrival, none Related Data Home Medications ?Medication ?Instructions ?Recorded ?Confirmed albuterol sulfate 90 mcg/actuation 2 inh inhalation Q4H PRN shortness 01/04/19 09/14/23 breath activated powder inhaler of breath or wheezing #1 ea valacyclovir 1 gram tablet See Rx Instructions .Route 06/07/23 09/11/23 .COMPLEX #14 tabs ondansetron 4 mg disintegrating 4 mg PO Q6H PRN nausea and 08/26/23 09/14/23 tablet vomiting #20 tabs calcium carbonate (Tums) 300 mg PO QID PRN 09/04/23 09/14/23 Previous Rx's ?Medication ?Instructions ?Recorded albuterol sulfate 90 mcg/actuation 2 inh inhalation Q4H PRN shortness 01/04/19 breath activated powder inhaler of breath or wheezing #1 ea valacyclovir 1 gram tablet See Rx Instructions .Route 06/07/23 .COMPLEX #14 tabs ondansetron 4 mg disintegrating 4 mg PO Q6H PRN nausea and 08/26/23 tablet vomiting #20 tabs Allergies Allergy/AdvReac Type Severity Reaction Status Date / Time pineapple AdvReac Mild Skin Rash Verified 09/14/23 16:46 General Stated Complaint: SYSTEMS APPLICATIONS PROGRAMMING LEAD JAMIE: 3 Review of Systems All systems reviewed & are unremarkable except as noted in HPI and below Constitutional Constitutional: Denies chills, Denies fever(s) and Denies weakness Cardiovascular Cardiovascular: Denies chest pain and Denies dyspnea Respiratory Respiratory: Denies cough and Denies dyspnea Gastrointestinal Gastrointestinal: Reports cramping, Reports nausea and Reports vomiting Musculoskeletal Musculoskeletal: Denies joint swelling Neurologic Neurologic: Denies weakness Exam Const General: no acute distress Orientation: alert [facility] Head: normal to inspection Ears: external ears normal General nose exam: external nose normal Mouth: moist mucous membranes Eyes General: appearance normal, both eyes and all related structures Neck Neck: normal visual inspection Resp Effort & Inspection: normal respiratory effort and able to speak in complete sentences Cardio Rate: regular rate GI Palpation: soft and nontender Skin General skin exam: no rashes or lesions noted Neuro General: patient alert and patient oriented x3 Extrem General: normal to inspection Psych Mental Status: mental status grossly normal Course Vital Signs Vital signs: Vital Signs Temperature 36.9 C 09/14/23 16:00 Pulse 90 09/14/23 16:00 Respiratory Rate 18 09/14/23 16:00 Blood Pressure 112/76 09/14/23 16:00 Pulse Oximetry 97 09/14/23 16:00 Temperature 36.9 C 09/14/23 16:00 Temperature Source Temporal Artery Scan 09/14/23 16:00 Pulse 90 09/14/23 16:00 Respiratory Rate 18 09/14/23 16:00 Blood Pressure 112/76 09/14/23 16:00 Blood Pressure Position Sitting 09/14/23 16:00 Pulse Oximetry 97 09/14/23 16:00 Oxygen Delivery Method Room Air 09/14/23 16:00 Oxygen Flow Rate 0 09/14/23 16:00 Medical Decision Making 23-year-old female who states she is currently in her third P0 at approximately 8 to 9 weeks per patient comes in with nausea vomiting has been going on for most of her for the patient. She also has had some lower abdominal cramping denies any vaginal bleeding. She has had some bodyaches denies any fevers or chills. She is alert and oriented x 4 and arrival in no distress. Her abdomen is soft and has no tenderness. She had a ultrasound showed a live IUP and has a heart rate today of 150. I suspect her nausea vomiting is from her , will treat with metoclopramide as she says Jorge A has been helping and check a CBC and CMP along with a UA. Given her body aches also check a Fluvid. Labs unremarkable, patient declined antiemetic offered here as she said her nausea resolved. She has no abdominal tenderness still. She is tolerating p.o., she is stable for discharge advised to follow-up with her SYSTEMS APPLICATIONS PROGRAMMING LEAD and return precautions given. Differential Diagnosis Differential Diagnosis: Hyperemesis gravidarum, electrolyte abnormality Medical Records Medical records reviewed: Yes I reviewed the patient's medical records. Lab Data Lab results reviewed: Yes I reviewed the patient's lab results. Quality:SDOH Health Related Social Needs: No Data to Display PFSH All Active Problems (Updated 09/14/23 @ 17:31 by Tee Morfin MD) Nausea and vomiting during (Acute) Fever (Acute) Miscarriage, threatened, early (Acute) Rh negative state in antepartum period (Acute) Medical History (Updated 09/14/23 @ 17:31 by Tee Morfin MD) Depression (09/14/14) History of herpes genitalis History of miscarriage 04/05/2022. 6w embryonic demise. Rx Misoprostol August 2018: early MAB - D&C Cervical disc disorder with radiculopathy Seen at [facility] spine center. Patient received trigger point injections. History of self mutilation Cutting L arm Surgical History (Updated 08/28/23 @ 17:24 by Kaylynn Bauer MD) History of D&C MAB August 2018 Family History Mother Substance abuse Alcohol abuse Mental disorder anxietyy/depression Father Healthy adult on routine physical examination Other Substance abuse maternal relatives Alcohol abuse maternal side Personal history of malignant neoplasm PGM-breast Heart disease MGM Multiple sclerosis MGM Social History Smoking/Tobacco Use Status: Never Smoking risk assessment performed?: Yes Alcohol Intake: current Alcohol Intake frequency: holidays/special occasions only Drug use: Daily Substance use type: marijuana Details: MDMA sometimes Housing: house Do you feel safe at home: Yes Do you feel safe in your relationship?: Yes Female Reproductive History Menstrual Age of Menarche: 14 Duration of menses: 3-5 days control method: none History History 2 Para Hx # Term Pregnancies 0 Multiple births Hx # Pregnancies Ectopic pregnancies AB induced Hx Number of Living Children 0 AB spontaneous 2 Past Pregnancies Del. Date GA/Weeks # Preg Succ Route Wgt Sex Labor Lgth Anesth esia Location Prov Complic 08/26/18 6 No 05/03/22 6 No Delivery Date: 08/26/18 Last Updated by: Kaylynn Bauer MD D [facility] C - [facility] Delivery Date: 05/03/22 Last Updated by: Kaylynn Bauer MD blighted ovum - [facility]
[2023-09-14 16:33] LABS: Bilirubin Negative (Negative); Blood Negative (Negative); Clarity Cloudy (Clear); Glucose Negative (Negative); Ketones Negative (Negative); Leukocyte Esterase Trace (Negative); Nitrite Negative (Negative); Urobilinogen 0.2 mg/dL (Up to 0.2)
[2023-09-14] MEDS: Normal Saline 10 ML VIAL IJ (16:39)
[2023-09-14] MEDS: Normal Saline 1,000 ML 1000 ML IV (16:40)
[2023-09-14 16:41] LABS: Abs Immature Grans 0.05 10^3/uL (0.0-0.06); Absolute Basophil Count 0.02 10^3/uL (0.0-0.2); Absolute Lymphocyte Count 1.52 10^3/uL (1.2-3.4); Absolute Monocyte Count 0.98 10^3/uL (0.1-0.8); Absolute Neutrophil Count 6.58 10^3/uL (1.2-6.7); Basophils % 0.2 %; Eosinophils % 1.1 %; HGB 13.9 g/dL (11.2-15.7); Immature Grans % 0.5 %; Lymphocytes % 16.4 %; MCH 33.5 pg (27.0-33.0); MCHC 36.6 % (32.0-36.0); MCV 92 fL (80-95); MPV 10.6 fL (8.0-11.0); Monocytes % 10.6 %; Neutrophils % 71.2 %; Platelet Count 189 10^3/uL (130-400); RBC 4.15 10^6/uL (3.93-5.22); RDW 11.2 % (11.7-14.6); WBC 9.25 10^3/uL (4.4-10.8)
[2023-09-14 16:43] LABS: Bacteria Few HPF (Negative); C & S Indicated? No/Sq. Contamination; Casts Negative LPF (Negative); Crystals Few Amorphous HPF (Negative); Epithelial Cells Many HPF (Negative); Mucus Negative (Negative); RBC 0-2 HPF (0-2)
[2023-09-14 17:00] LABS: ALT 19 U/L (14-59); AST 10 U/L (15-37); Albumin 3.6 g/dL (3.4-5.0); Alkaline Phosphatase 49 U/L (46-116); Anion Gap 12.8 mmol/L (3-11); BUN 8 mg/dL (7-18); Bilirubin, Total 0.81 mg/dL (0.2-1.0); CO2 22.2 mmol/L (21.0-32.0); CREATININE 0.5 mg/dL (0.55-1.02); Calcium 8.8 mg/dL (8.5-10.1); Chloride 103 mmol/L (98-107); Estimated GFR 135.07 (mL/min/1.73m2); Glucose 100 mg/dL (74-106); Magnesium 1.9 mg/dL (1.8-2.4); Potassium 3.7 mmol/L (3.5-5.1); Sodium 138 mmol/L (136-145)
[2023-09-14 17:05] LABS: COVID-19 PCR Negative (Negative); Influenza A PCR Negative (Negative); Influenza B PCR Negative (Negative); RSV PCR Negative (Negative)
[2023-09-14 17:06] LABS: Source Nasopharynx
[2023-09-14 17:42] VITALS: BP 111/58; PULSE 78; RESP 12; TEMP 36.9; O2SAT 100
== END 2023-09-14 17:42 | disposition home or self-care (01) ==
PROVIDERS: Emergency Provider Emergency Medicine
DX: R11.0 Nausea (principal); O21.9 Vomiting of pregnancy, unspecified; R42 Dizziness and giddiness; R10.30 Lower abdominal pain, unspecified
CPT/HCPCS: 36415; 80053; 87637; 96360; 99284; 81003; 81015; 83735; 85025; 99283

== ENCOUNTER 2023-10-10 04:36 | Outpatient (CLI) | payer BC, SELFPAY ==
[2023-10-10 11:41] LABS: Panorama Kit Sent via Fed Ex
[2023-10-10 12:32] LABS: Abs Immature Grans 0.06 10^3/uL (0.0-0.06); Absolute Basophil Count 0.02 10^3/uL (0.0-0.2); Absolute Eosinophil Count 0.11 10^3/uL (0.0-0.7); Absolute Lymphocyte Count 1.26 10^3/uL (1.2-3.4); Absolute Monocyte Count 0.63 10^3/uL (0.1-0.8); Absolute Neutrophil Count 6.93 10^3/uL (1.2-6.7); Basophils % 0.2 %; Eosinophils % 1.2 %; HCT 37.2 % (36.0-46.0); HGB 13.3 g/dL (11.2-15.7); Immature Grans % 0.7 %; MCH 33.8 pg (27.0-33.0); MCHC 35.8 % (32.0-36.0); MCV 94 fL (80-95); MPV 10.9 fL (8.0-11.0); Neutrophils % 76.9 %; Platelet Count 206 10^3/uL (130-400); RBC 3.94 10^6/uL (3.93-5.22); RDW 11.9 % (11.7-14.6); RDW-SD 40.9 fL; WBC 9.01 10^3/uL (4.4-10.8)
[2023-10-11 08:50] LABS: Hepatitis B Surface Ag Negative (Negative)
[2023-10-11 09:12] LABS: HIV-1/2 Ag & Ab Screen Negative (Negative)
[2023-10-11 09:33] LABS: Hepatitis C Ab w Rflx HCV PCR Negative (Negative)
[2023-10-11 11:17] LABS: Varicella IgG Antibody Positive (See Note)
[2023-10-11 11:23] LABS: Rubella IgG Ab (UVM) Positive (See Note)
[2023-10-13 14:02] LABS: Syphilis IgG w/Reflex Nonreactive (Nonreactive)
[2023-10-15 16:02] LABS: Specimen WB Whole Blood
[2023-10-18 16:57] LABS: Result Summary NEGATIVE; Specimen WB Whole Blood
== END 2023-10-10 04:37 | disposition home or self-care (01) ==
PROVIDERS: Advanced Practice Midwife; Visit Provider Advanced Practice Midwife
DX: Z34.91 Encounter for supervision of normal pregnancy, unspecified, first trimester (principal)
CPT/HCPCS: 36415; 81220; 81222; 81329; 86787; 86803; 86850; 86900; 86901; 87340; 87389; 85025; 86762; 86780; 86870

== ENCOUNTER 2023-10-10 10:55 | Outpatient (REF) | payer BC, SELFPAY ==
[2023-10-10 12:30] LABS: *AMPHETAMINES SCREEN URINE Negative (Negative); *BARBITURATES SCREEN URINE Negative (Negative); *BENZODIAZEPINES SCREEN URINE Negative (Negative); Cannabinoids THC Positive (Negative); Cocaine Screen,Urine Negative (Negative); METHADONE URINE SCREEN Negative (Negative); OPIATES URINE SCREEN Negative (Negative); Tricyclic Antidepressants Negative (Negative)
[2023-10-11 13:31] LABS: Fentanyl Scr w/Rfx Confirm Negative ng/mL (<1)
[2023-10-11 13:34] LABS: Chlamydia Result Negative (Negative); GC Result Negative (Negative)
[2023-10-16 08:53] LABS: Buprenorphine Negative ng/mL (Cutoff: 5.0); Norbuprenorphine Negative ng/mL (Cutoff: 2.5)
== END 2023-10-10 10:56 | disposition home or self-care (01) ==
LOC: LBN 10:55
PROVIDERS: Visit Provider Advanced Practice Midwife
DX: Z34.91 Encounter for supervision of normal pregnancy, unspecified, first trimester (principal); N89.8 Other specified noninflammatory disorders of vagina; Z3A.12 12 weeks gestation of pregnancy
CPT/HCPCS: 80307; 80348; 87491; 87591; 87086; 87480; 87510; 87660

== ENCOUNTER 2023-10-12 12:20 | Emergency (ER) | payer BC, SELFPAY ==
[2023-10-12 12:27] VITALS: BP 110/71; PULSE 93; RESP 20; TEMP 36.3; O2SAT 98
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
[2023-10-12 13:15] LABS: HCT 33.7 % (36.0-46.0); MCH 33.6 pg (27.0-33.0); MCHC 35.6 % (32.0-36.0); MCV 94 fL (80-95); MPV 10.6 fL (8.0-11.0); Platelet Count 192 10^3/uL (130-400); RBC 3.57 10^6/uL (3.93-5.22); RDW 11.9 % (11.7-14.6); WBC 8.53 10^3/uL (4.4-10.8)
== END 2023-10-12 13:53 | disposition home or self-care (01) ==
PROVIDERS: Emergency Provider Emergency Medicine
DX: O26.851 Spotting complicating pregnancy, first trimester (principal)
CPT/HCPCS: 85027; 99283

== ENCOUNTER 2023-12-05 01:16 | Outpatient (CLI) | payer MEDICAID, SELFPAY ==
--- NOTE | 2023-12-05 13:00 | DI.US_ITS ---
Exam(s) US OB 2-3 TRIMESTER EXAM: US OB 2-3 TRIMESTER CLINICAL HISTORY: ,z34.90. TECHNIQUE: Transabdominal obstetrical ultrasound performed. COMPARISON: US POCUS EXAM from 09/18/2023 FINDINGS: Number of fetuses: 1 position: Cephalic heart rate: 150 Placental location: Posterior, grade 0 no evidence of previa. BIOMETRIC DATA: BPD: 48, 20+ 4 HC: 187, 21+ 0 AC: 149, 20+ 1 FL: 36, 21+4 Cisterna magna: 5 mm Cerebellum: 2.0 cm Lateral ventricle: 5 mm EFW: 378, 74 percentile , Composite Age: 20 weeks 6 days MARILYN: March Amniotic fluid: Amount of fluid is visually within normal limits. ANATOMICAL SURVEY: Four-chambered heart: Unremarkable. LVOT: Unremarkable. RVOT: Unremarkable. Left-sided stomach: Unremarkable. urinary bladder: Unremarkable. Bilateral kidneys: Unremarkable. Three-vessel cord: Unremarkable. Cord insertion: Unremarkable. Posterior fossa:Unremarkable. ventricles: Unremarkable. nose: Unremarkable. lips: Unremarkable. palate: Unremarkable. spine: Unremarkable. Two arms and two legs: Unremarkable. IMPRESSION: 1. Single live intrauterine gestation with composite age measuring 20 weeks 6 days. 2. Normal anatomic survey.
== END 2023-12-05 01:36 ==
LOC: DI 01:16
PROVIDERS: Visit Provider Advanced Practice Midwife
DX: Z34.92 Encounter for supervision of normal pregnancy, unspecified, second trimester (principal); Z3A.20 20 weeks gestation of pregnancy
CPT/HCPCS: 76805

== ENCOUNTER 2023-12-05 14:09 | Outpatient (REF) | payer MEDICAID, SELFPAY | END 2023-12-05 14:10 | disposition home or self-care (01) | LOC: LBN 14:09 | PROVIDERS: Visit Provider Advanced Practice Midwife | DX: N89.8 Other specified noninflammatory disorders of vagina (principal) | CPT/HCPCS: 87480; 87510; 87660 ==

== ENCOUNTER 2023-12-09 16:04 | Outpatient (REF) | payer MEDICAID, SELFPAY ==
[2023-12-11 15:20] LABS: HSV 1 DNA Result Negative (Negative); HSV 2 DNA Result Negative (Negative)
[2023-12-11 15:24] LABS: Varicella Zoster DNA Result Negative (Negative)
== END 2023-12-09 16:05 | disposition home or self-care (01) ==
LOC: LBN 16:04
PROVIDERS: Visit Provider Nurse Practitioner Family
DX: R21 Rash and other nonspecific skin eruption (principal)
CPT/HCPCS: 87529; 87798

== ENCOUNTER 2024-01-07 20:40 | Outpatient (CLI) | payer MEDICAID, SELFPAY ==
[2024-01-07 20:43] VITALS: BP 120/80; PULSE 93; RESP 16; TEMP 36.7; O2SAT 99
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
[2024-01-07 21:13] LABS: Abs Immature Grans 0.18 10^3/uL (0.0-0.06); Absolute Basophil Count 0.02 10^3/uL (0.0-0.2); Absolute Eosinophil Count 0.21 10^3/uL (0.0-0.7); Absolute Lymphocyte Count 1.64 10^3/uL (1.2-3.4); Absolute Monocyte Count 1.09 10^3/uL (0.1-0.8); Absolute Neutrophil Count 8.72 10^3/uL (1.2-6.7); Basophils % 0.2 %; Eosinophils % 1.8 %; HCT 36.4 % (36.0-46.0); HGB 12.8 g/dL (11.2-15.7); Immature Grans % 1.5 %; Lymphocytes % 13.8 %; MCH 33.9 pg (27.0-33.0); MCHC 35.2 % (32.0-36.0); MCV 96 fL (80-95); MPV 10.7 fL (8.0-11.0); Monocytes % 9.2 %; Neutrophils % 73.5 %; Platelet Count 178 10^3/uL (130-400); RBC 3.78 10^6/uL (3.93-5.22); RDW 11.4 % (11.7-14.6); RDW-SD 40.1 fL; WBC 11.86 10^3/uL (4.4-10.8)
[2024-01-07 22:18] VITALS: BP 109/66; PULSE 84; RESP 17; TEMP 36.8
--- NOTE | 2024-01-07 23:02 | NUR.NOTE ---
Nursing Note:Pt on monitor from 21:15 to 22:15 FHR 145 with accelerations, no contractions seen at this time. Pt states that she no longer has any cramping. Reviewed strip with CNM. Vaginal exam done by CNM. After Rogam given pt can be discharged to come back later this week.
--- NOTE | 2024-01-08 08:57 | W.OBNST ---
Date of service: 01/07/24 Time of Service: 22:30 NST Evaluation Reason for NST Reasons for Nonstress Test: OTHER, SEE COMMENT Reason for NST Other: vaginal bleeding at 25 wks Test and Monitor Explained Test/Monitor Explained: Test Explained, Monitor Explained and Patient Verbalized Understanding Vital Signs Blood Pressure: 109/66 Pulse: 84 Temperature: 98.2 F NST Information Date on Monitor: 01/07/24 Time on Monitor: 22:00 Date off Monitor: 01/07/24 Time off Monitor: 23:00 Total Time on Monitor: 60 NST Interventions: PO Hydration and Notify Provider Contraction Frequency: 0 NST Evaluation Patient States Movement: Present FHR Baseline: 140 Variability: Moderate 6-25 bpm Accelerations: 10x10 Decelerations: None NST Results: Reactive Note Ultrasound Done: N/A. NST Note Note: Pt reports vaginal bleeding at 1900 with vague sensation of lower abd cramping Per pt: Saw blood on underwear and put a pad on then came directly to the ED, ED Provider assured pt stable and not actively bleeding and transferred pt to center On exam: No signs of dried blood on pt's vulva or legs, vaginal exam for white mucous, cvx closed, no presenting parts in pelvis No contractions, pt reports no pain, states bleeding stopped before arriving at ED Will discharge with plan for ultrasound evaluation on outpt basis tomorrow. Pt comfortable with this plan, feeling reassured, is discharged to home. NST Reviewed and Verified by: Bee Valentine
[2024-01-08 09:03] VITALS: BP 109/66; PULSE 84; TEMP 36.8
== END 2024-01-07 22:48 ==
LOC: ER 20:47 → BCD 21:10 → OBS 21:23
PROVIDERS: Emergency Provider Student in an Organized Health Care Education/Training Program; Visit Provider Advanced Practice Midwife
DX: O26.852 Spotting complicating pregnancy, second trimester (principal); R10.30 Lower abdominal pain, unspecified; Z3A.25 25 weeks gestation of pregnancy
CPT/HCPCS: 86850; 86900; 86901; 90384; 59025; 85025

== ENCOUNTER 2024-01-08 09:55 | Outpatient (CLI) | payer MEDICAID, SELFPAY ==
--- NOTE | 2024-01-08 09:00 | DI.US_ITS ---
Exam(s) US OB DI WEIGHT EXAM: US OB DI WEIGHT CLINICAL HISTORY: in ER last night for bleeding, need interval growt O46.92 WET READ. TECHNIQUE: Transabdominal obstetrical ultrasound performed. COMPARISON: US US OB 2-3 TRIMESTER from 12/05/2023 FINDINGS:: Number of fetuses: 1 position: CEPHALIC Placental location: FUNDAL/posterior. No evidence of previa. No evidence abruption or focal abnorma lity. Cervical length 4.7 cm. No evidence of funneling. BIOMETRIC DATA: BPD: 6.43cm, 26weeks HC: 23.95cm, 26weeks AC: 20.51cm, 25weeks 1day FL: 5cm, 26weeks 6days EFW: 865.18g, 1lb 14.08oz, 73.1% Composite Age: 26weeks MARILYN: 04/15/2024 Heart Rate: 146bpm Amniotic fluid index: 15.39cm. Visually, amount of fluid is within normal limits. Heart Rate: 146bpm IMPRESSION: size and weight are within the expected range. No evidence of cervical placental abnormality. Cervical length is normal 4.7 cm. DATA REPOSITORY:
== END 2024-01-08 10:15 ==
LOC: DI 09:58
PROVIDERS: Visit Provider Advanced Practice Midwife
DX: O46.92 Antepartum hemorrhage, unspecified, second trimester (principal); Z3A.26 26 weeks gestation of pregnancy
CPT/HCPCS: 76816

== ENCOUNTER 2024-01-28 02:34 | Outpatient (CLI) | payer MEDICAID, SELFPAY ==
[2024-01-28 10:30] LABS: HCT 34.5 % (36.0-46.0); HGB 12.1 g/dL (11.2-15.7); MCH 33.8 pg (27.0-33.0); MCHC 35.1 % (32.0-36.0); MCV 96 fL (80-95); MPV 10.4 fL (8.0-11.0); Platelet Count 170 10^3/uL (130-400); RBC 3.58 10^6/uL (3.93-5.22); RDW 11.5 % (11.7-14.6); RDW-SD 40.5 fL; WBC 10.52 10^3/uL (4.4-10.8)
[2024-01-28 10:56] LABS: Glucose,1 Hr (Glucola) 115 mg/dL (80-140)
== END 2024-01-28 02:35 | disposition home or self-care (01) ==
LOC: LBO 02:34
PROVIDERS: Visit Provider Advanced Practice Midwife
DX: Z34.92 Encounter for supervision of normal pregnancy, unspecified, second trimester (principal)
CPT/HCPCS: 36415; 82950; 85027

== ENCOUNTER 2024-01-28 11:41 | Outpatient (REF) | payer MEDICAID, SELFPAY ==
[2024-01-28 13:50] LABS: *AMPHETAMINES SCREEN URINE Negative (Negative); *BARBITURATES SCREEN URINE Negative (Negative); *BENZODIAZEPINES SCREEN URINE Negative (Negative); Cannabinoids THC Negative (Negative); Cocaine Screen,Urine Negative (Negative); METHADONE URINE SCREEN Negative (Negative); OPIATES URINE SCREEN Negative (Negative)
[2024-01-28 13:55] LABS: Tricyclic Antidepressants Negative (Negative)
[2024-01-29 12:44] LABS: Chlamydia Result Negative (Negative); GC Result Negative (Negative)
[2024-02-01 14:54] LABS: Buprenorphine Negative ng/mL (Cutoff: 5.0)
== END 2024-01-28 11:42 | disposition home or self-care (01) ==
LOC: LBN 11:41
PROVIDERS: Visit Provider Advanced Practice Midwife
DX: Z11.3 Encounter for screening for infections with a predominantly sexual mode of transmission (principal); Z34.92 Encounter for supervision of normal pregnancy, unspecified, second trimester
CPT/HCPCS: 80307; 80348; 87491; 87591

== ENCOUNTER 2024-02-25 01:24 | Outpatient (CLI) | payer MEDICAID, SELFPAY ==
--- NOTE | 2024-02-25 07:45 | DI.US_ITS ---
Exam(s) US OB DI WEIGHT EXAM: US OB DI WEIGHT CLINICAL HISTORY: , bleeding in 1st and second trimester,O46.92,O46.90. TECHNIQUE: Transabdominal obstetrical ultrasound was performed. COMPARISON: US US OB DI WEIGHT from 01/08/2024 FINDINGS: There is a single viable intrauterine gestation with cardiac activity identified-127 bpm The fetus is presently in cephalic position . Amniotic fluid: There is a normal amount of amniotic fluid with an DI of 16.1cm. Placental location: The placenta is posterior grade 2,with no evidence of placenta previa. Dating parameters place this at approximately 32 weeks and 2 days gestational age, implying MARILYN of 04/19/2024. BPD measures 33 weeks and 0 days HC measures 33 weeks and 3 days AC measures 30 weeks and 5 days FL measures 32 weeks and 1 day Estimated weight is 1804 gm-4 pounds, 0 ounces Fetus is at the 28th percentile on the Hadlock scale. IMPRESSION:: Viable 3rd trimester gestation, as described above. Fetus is at the 28th percentile on the Hadlock scale. DATA REPOSITORY:
== END 2024-02-25 01:44 ==
PROVIDERS: PCP Physician Assistant; Visit Provider Advanced Practice Midwife
DX: O46.93 Antepartum hemorrhage, unspecified, third trimester (principal); Z3A.36 36 weeks gestation of pregnancy
CPT/HCPCS: 76816

== ENCOUNTER 2024-02-25 14:44 | Outpatient (REF) | payer MEDICAID, SELFPAY ==
[2024-02-26 11:48] LABS: Chlamydia Result Negative (Negative); GC Result Negative (Negative)
== END 2024-02-25 14:45 | disposition home or self-care (01) ==
LOC: LBN 14:44
PROVIDERS: PCP Physician Assistant; Visit Provider Advanced Practice Midwife
DX: Z34.93 Encounter for supervision of normal pregnancy, unspecified, third trimester (principal)
CPT/HCPCS: 87491; 87591

== ENCOUNTER 2024-03-05 15:01 | Outpatient (CLI) | payer MEDICAID, SELFPAY ==
--- NOTE | 2024-03-05 19:17 | W.OBNST ---
Date of service: 03/05/24 Time of Service: 16:00 NST Evaluation Reason for NST Reasons for Nonstress Test: DECREASED MOVEMENT Reason for NST Other: screening for vaginitis Gestational Age Gestational Age in Weeks and Days: 33 Weeks and 2Days Test and Monitor Explained Test/Monitor Explained: Test Explained and Monitor Explained Urine Results Urine Protein: Negative Urine Ketones: Negative Urine Glucose: Negative Urine Blood: Negative NST Information Date on Monitor: 03/05/24 Time on Monitor: 15:33 Date off Monitor: 03/05/24 Time off Monitor: 16:10 Total Time on Monitor: 37 NST Interventions: PO Hydration NST Evaluation Patient States Movement: Present FHR Baseline: 145 Variability: Moderate 6-25 bpm Accelerations: 15x15 Decelerations: None NST Results: Reactive Note Ultrasound Done: N/A. NST Note NST Reviewed and Verified by: Anai Merrill
== END 2024-03-05 16:10 ==
LOC: BCD 15:03 → OBS 15:26
PROVIDERS: Visit Provider Advanced Practice Midwife
DX: O36.8130 Decreased fetal movements, third trimester, not applicable or unspecified (principal); Z3A.33 33 weeks gestation of pregnancy; O26.893 Other specified pregnancy related conditions, third trimester; N76.0 Acute vaginitis
CPT/HCPCS: 59025; 00123; 87480; 87510; 87660

== ENCOUNTER 2024-03-23 13:32 | Outpatient (REF) | payer MEDICAID, SELFPAY ==
[2024-03-23 17:09] LABS: COMMENT (LAB VIEW ONLY) 30.72 mg/dL; PROTEIN 6.6 mg/dL; Prot/Crea Ur Ratio 0.21
== END 2024-03-23 13:33 | disposition home or self-care (01) ==
LOC: LBN 13:32
PROVIDERS: Visit Provider Advanced Practice Midwife
DX: O12.03 Gestational edema, third trimester (principal)
CPT/HCPCS: 36415; 80053; 85027; 82565; 84156

== ENCOUNTER 2024-03-23 14:44 | Outpatient (CLI) | payer MEDICAID, SELFPAY ==
[2024-03-23 15:37] LABS: HCT 34.6 % (36.0-46.0); HGB 11.9 g/dL (11.2-15.7); MCH 31.8 pg (27.0-33.0); MCHC 34.4 % (32.0-36.0); MCV 93 fL (80-95); MPV 11.3 fL (8.0-11.0); Platelet Count 191 10^3/uL (130-400); RBC 3.74 10^6/uL (3.93-5.22); RDW 12.1 % (11.7-14.6); RDW-SD 40.7 fL
[2024-03-23 16:20] LABS: ALT 36 U/L (14-59); AST 16 U/L (15-37); Albumin 2.6 g/dL (3.4-5.0); Alkaline Phosphatase 134 U/L (46-116); Anion Gap 9.3 mmol/L (3-11); BUN 7 mg/dL (7-18); Bilirubin, Total 0.59 mg/dL (0.2-1.0); CO2 22.7 mmol/L (21.0-32.0); CREATININE 0.5 mg/dL (0.55-1.02); Calcium 8.9 mg/dL (8.5-10.1); Chloride 106 mmol/L (98-107); Estimated GFR 134.23 (mL/min/1.73m2); Glucose 78 mg/dL (74-106); Potassium 3.9 mmol/L (3.5-5.1); Sodium 138 mmol/L (136-145); Total Protein 6.7 g/dL (6.4-8.2)
== END 2024-03-23 14:45 | disposition home or self-care (01) ==
LOC: LBO 14:44
PROVIDERS: Visit Provider Advanced Practice Midwife
DX: O12.03 Gestational edema, third trimester (principal)
CPT/HCPCS: 36415; 80053; 85027

== ENCOUNTER 2024-03-30 13:08 | Outpatient (CLI) | payer MEDICAID, SELFPAY ==
[2024-03-30 13:30] VITALS: BP 115/80; PULSE 96; TEMP 36.9
[2024-03-30 13:45] VITALS: BP 115/80; PULSE 96
--- NOTE | 2024-03-30 14:23 | W.OBNST ---
Date of service: 03/30/24 Time of Service: 14:23 NST Evaluation Reason for NST Reasons for Nonstress Test: DECREASED MOVEMENT Gestational Age Gestational Age in Weeks and Days: 36 Weeks and 6Days Test and Monitor Explained Test/Monitor Explained: Test Explained, Monitor Explained and Patient Verbalized Understanding Vital Signs Blood Pressure: 115/80 Pulse: 96 Temperature: 98.4 F NST Information Date on Monitor: 03/30/24 Time on Monitor: 13:31 Date off Monitor: 03/30/24 Time off Monitor: 14:04 Total Time on Monitor: 33 NST Interventions: PO Hydration NST Evaluation Patient States Movement: Present FHR Baseline: 130 Variability: Moderate 6-25 bpm Accelerations: 15x15 Decelerations: None NST Results: Reactive Note Ultrasound Done: N/A. NST Note Note: Roshni was in for visit today. She reports decreased movement. baby has been active during NST and reactive NST. Follow up at [facility] in 1 week. NST Reviewed and Verified by: Constance Mariscal
[2024-03-30 14:24] VITALS: BP 115/80; PULSE 96; TEMP 36.9
== END 2024-03-30 14:08 | disposition other institution (70) ==
LOC: BCD 13:11 → OBS 13:29
PROVIDERS: Visit Provider Advanced Practice Midwife
DX: O36.8130 Decreased fetal movements, third trimester, not applicable or unspecified (principal); Z3A.36 36 weeks gestation of pregnancy
CPT/HCPCS: 59025

== ENCOUNTER 2024-03-30 13:51 | Outpatient (REF) | payer MEDICAID, SELFPAY | END 2024-03-30 13:52 | disposition home or self-care (01) | LOC: LBN 13:51 | PROVIDERS: Visit Provider Advanced Practice Midwife | DX: Z34.93 Encounter for supervision of normal pregnancy, unspecified, third trimester (principal); Z3A.37 37 weeks gestation of pregnancy | CPT/HCPCS: 87081 ==

== ENCOUNTER 2024-03-30 15:47 | Emergency (ER) | payer MEDICAID, SELFPAY ==
[2024-03-30 15:48] VITALS: BP 133/84; PULSE 100; RESP 18; TEMP 36.8; O2SAT 99
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
[2024-03-30] MEDS: Azithromycin 250 MG TAB 500 MG PO (16:53)
== END 2024-03-30 16:55 | disposition home or self-care (01) ==
PROVIDERS: Emergency Provider Nurse Practitioner Family
DX: R21 Rash and other nonspecific skin eruption (principal); Z34.93 Encounter for supervision of normal pregnancy, unspecified, third trimester; W55.03XA Scratched by cat, initial encounter
CPT/HCPCS: 99283

== ENCOUNTER 2024-03-31 01:24 | Outpatient (CLI) | payer MEDICAID, SELFPAY ==
[2024-03-31 02:12] VITALS: BP 126/75; PULSE 99; RESP 16; TEMP 36.7; O2SAT 98
[2024-03-31 02:14] VITALS: BP 126/75; PULSE 99; TEMP 36.7
--- NOTE | 2024-03-31 13:44 | W.OBNST ---
Date of service: 03/31/24 Time of Service: 02:00 NST Evaluation Reason for NST Reasons for Nonstress Test: FALSE LABOR Gestational Age Gestational Age in Weeks and Days: 37 Weeks and 0Days Test and Monitor Explained Test/Monitor Explained: Test Explained Vital Signs Blood Pressure: 126/75 Pulse: 99 Temperature: 98.1 F Urine Results Urine Protein: Positive Urine Ketones: Positive Urine Glucose: Negative Urine Blood: Negative NST Information Date on Monitor: 03/31/24 Time on Monitor: 02:00 Date off Monitor: 03/31/24 Time off Monitor: 02:24 Total Time on Monitor: 24 NST Interventions: PO Hydration NST Evaluation Patient States Movement: Present FHR Baseline: 130 Variability: Moderate 6-25 bpm Accelerations: 15x15 Decelerations: None NST Results: Reactive Note Ultrasound Done: N/A (not done). NST Note NST Reviewed and Verified by: Anai Merrill
[2024-03-31 13:45] VITALS: BP 126/75; PULSE 99; TEMP 36.7
== END 2024-03-31 02:59 | disposition other institution (70) ==
LOC: BCD 01:27
PROVIDERS: Visit Provider Advanced Practice Midwife
DX: O47.1 False labor at or after 37 completed weeks of gestation (principal); Z3A.37 37 weeks gestation of pregnancy; R10.84 Generalized abdominal pain
CPT/HCPCS: 59025

== ENCOUNTER 2024-03-31 02:57 | Emergency (ER) | payer MEDICAID, SELFPAY ==
[2024-03-31 03:01] VITALS: PULSE 98; RESP 16; TEMP 37.4; O2SAT 98
[2024-03-31] MEDS: Ondansetron O.D.T. 4 MG TABEF (03:32)
[2024-03-31 03:56] LABS: COVID-19 PCR Negative (Negative); Influenza A PCR Negative (Negative); Influenza B PCR Negative (Negative); RSV PCR Negative (Negative)
[2024-03-31 03:58] VITALS: BP 132/82; RESP 16
[2024-03-31 04:02] LABS: Bilirubin Negative (Negative); Blood Trace-lysed (Negative); Clarity Cloudy (Clear); Glucose Negative (Negative); Ketones Negative (Negative); Leukocyte Esterase Moderate (Negative); Nitrite Negative (Negative); Specific Gravity 1.015 (1.005-1.025); Urobilinogen 0.2 mg/dL (Up to 0.2)
[2024-03-31 04:06] LABS: Source Nasopharynx
[2024-03-31 04:25] LABS: Bacteria Few HPF (Negative); C & S Indicated? No/Sq. Contamination; Casts Negative LPF (Negative); Crystals Negative HPF (Negative); Epithelial Cells Many HPF (Negative); Mucus Moderate (Negative); RBC 0-2 HPF (0-2)
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
[2024-03-31 04:56] VITALS: BP 138/75; PULSE 88; RESP 18; O2SAT 98
[2024-03-31] MEDS: Ondansetron O.D.T. 4 MG TABEF, 3 TABS/BTL PO (04:57)
== END 2024-03-31 04:58 | disposition home or self-care (01) ==
PROVIDERS: Emergency Provider Student in an Organized Health Care Education/Training Program
DX: O21.2 Late vomiting of pregnancy (principal); R10.9 Unspecified abdominal pain; M54.50 Low back pain, unspecified
CPT/HCPCS: 87637; 99283; 81003; 81015

== ENCOUNTER 2024-04-06 15:54 | Outpatient (CLI) | payer MEDICAID, SELFPAY | END 2024-04-06 15:55 | disposition home or self-care (01) | LOC: LBO 15:57 | PROVIDERS: Visit Provider Advanced Practice Midwife | DX: O26.893 Other specified pregnancy related conditions, third trimester (principal); Z67.91 Unspecified blood type, Rh negative | CPT/HCPCS: 36415; 86850; 86900; 86901; 90384 ==

== ENCOUNTER 2024-04-14 10:31 | Outpatient (REF) | payer MEDICAID, SELFPAY | END 2024-04-14 10:32 | disposition home or self-care (01) | LOC: LBN 10:31 | PROVIDERS: Visit Provider Advanced Practice Midwife | DX: Z34.93 Encounter for supervision of normal pregnancy, unspecified, third trimester (principal) | CPT/HCPCS: 87480; 87510; 87660 ==

== ENCOUNTER 2024-04-15 18:47 | Inpatient (IN) | payer MEDICAID, SELFPAY ==
[2024-04-15] VITALS (24 sets, daily range): BP systolic 125–130; BP diastolic 79–83; PULSE 80–103; RESP 18; TEMP 36.7–37.2; O2SAT 98
[2024-04-15 17:33] LABS: ROM Plus Positive
[2024-04-15 19:21] LABS: HCT 34.3 % (36.0-46.0); HGB 11.7 g/dL (11.2-15.7); MCH 32.1 pg (27.0-33.0); MCHC 34.1 % (32.0-36.0); MCV 94 fL (80-95); MPV 11.4 fL (8.0-11.0); Platelet Count 173 10^3/uL (130-400); RBC 3.64 10^6/uL (3.93-5.22); RDW 12.7 % (11.7-14.6); RDW-SD 43.8 fL
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
[2024-04-15] MEDS: hydrOXYzine 25 MG/ML VIAL 50 MG IM (21:12)
[2024-04-15] MEDS: MORPHine 10 MG/ML VIAL 15 MG IM (21:13)
--- NOTE | 2024-04-15 22:27 | W.PM.OBNL1 ---
Date of service: 04/15/24 Time of Service: 22:27 Informed Consent Informed Consent: Augmentation of Labor and Induction of Labor Contractions Monitor Mode: External Contraction Frequency(min): 2-4 Contraction Duration(sec): 40 Intensity: Mild/Moderate Fetus A Monitor: External (US) Heart Rate Baseline: 125 Variability: Moderate (6-25 BPM) Categories: Category I Accelerations: 15 X 15 Decelerations: None Amniotic Membrane Status: Ruptured Assessment and Plan Assessment and plan (1) PROM (premature rupture of membranes): Status: Acute Assessment and plan: A: Cat 1 FHT Therapeutic Rest administered P: Let patient rest, expectant management, reassess need for augmentation when patient awake Objective Abnormal lab results 04/15/24 Range/Units 19:12 RBC 3.64 L (3.93-5.22) 10^6/uL Hct 34.3 L (36.0-46.0) % MPV 11.4 H (8.0-11.0) fL Temp Pulse Resp BP Pulse Ox 98.8 F 94 H 18 125/82 98 04/15/24 21:03 04/15/24 22:00 04/15/24 19:04 04/15/24 21:58 04/15/24 22:00 Laboratory Results WBC 10.40 10^3/uL (4.4-10.8) 04/15/24 19:12 RBC 3.64 10^6/uL (3.93-5.22) L 04/15/24 19:12 Hgb 11.7 g/dL (11.2-15.7) 04/15/24 19:12 Hct 34.3 % (36.0-46.0) L 04/15/24 19:12 MCV 94 fL (80-95) 04/15/24 19:12 MCH 32.1 pg (27.0-33.0) 04/15/24 19:12 MCHC 34.1 % (32.0-36.0) 04/15/24 19:12 RDW 12.7 % (11.7-14.6) 04/15/24 19:12 Plt Count 173 10^3/uL (130-400) 04/15/24 19:12 MPV 11.4 fL (8.0-11.0) H 04/15/24 19:12 Membranes Rupture Positive 04/15/24 16:55 ABO/Rh Cancelled 04/15/24 20:03 Antibody Screen Cancelled 04/15/24 20:03 Antibody Identification Anti-D 04/15/24 19:12 Subjective Patient Reports: New Complaints (contractions increasing in frequency, would like to hold off on augmentation and try to rest) Interval history since last seen: morphine/vistaril given about 2100, patient prefers to sleep and hold off on augmentation. Results Hemoglobin/Hematocrit: Hgb 11.7 g/dL (11.2-15.7) 04/15/24 19:12 Hct 34.3 % (36.0-46.0) L 04/15/24 19:12 Abnormal Lab Findings: Abnormal Labs 04/15/24 19:12 RBC 3.64 L Hct 34.3 L MPV 11.4 H
[2024-04-16] VITALS (192 sets, daily range): BP systolic 102–153; BP diastolic 60–98; PULSE 85–133; RESP 16–20; TEMP 36.6–37; O2SAT 95–100; BMI 36.6
[2024-04-16] MEDS: miSOPROStol 25 MCG TAB 50 MCG PO ×2 (06:15→10:16)
--- NOTE | 2024-04-16 07:08 | W.PM.OBNL1 ---
Date of service: 04/16/24 Time of Service: 07:09 Informed Consent Informed Consent: Augmentation of Labor and Induction of Labor Contractions Monitor Mode: External Contraction Frequency(min): 4-6 Contraction Duration(sec): 40 Intensity: Mild Fetus A Monitor: External (US) Heart Rate Baseline: 120 Presentation: Vertex Variability: Moderate (6-25 BPM) Categories: Category I FHR Rhythm: Regular Characteristics: Normal Accelerations: 15 X 15 Decelerations: None Amniotic Membrane Status: Ruptured Assessment and Plan Assessment and plan (1) PROM (premature rupture of membranes): Status: Acute Assessment and plan: A: at 39w2d ROM >24hrs Afebrile P: Start Misoprostol 50mcg q4hr SVE when clinically indicated Pt planning to use nitrous Objective Abnormal lab results 04/15/24 Range/Units 19:12 RBC 3.64 L (3.93-5.22) 10^6/uL Hct 34.3 L (36.0-46.0) % MPV 11.4 H (8.0-11.0) fL Temp Pulse Resp BP Pulse Ox 98.6 F 87 17 112/74 98 04/16/24 05:16 04/16/24 05:52 04/16/24 05:16 04/16/24 05:16 04/15/24 22:00 Laboratory Results WBC 10.40 10^3/uL (4.4-10.8) 04/15/24 19:12 RBC 3.64 10^6/uL (3.93-5.22) L 04/15/24 19:12 Hgb 11.7 g/dL (11.2-15.7) 04/15/24 19:12 Hct 34.3 % (36.0-46.0) L 04/15/24 19:12 MCV 94 fL (80-95) 04/15/24 19:12 MCH 32.1 pg (27.0-33.0) 04/15/24 19:12 MCHC 34.1 % (32.0-36.0) 04/15/24 19:12 RDW 12.7 % (11.7-14.6) 04/15/24 19:12 Plt Count 173 10^3/uL (130-400) 04/15/24 19:12 MPV 11.4 fL (8.0-11.0) H 04/15/24 19:12 Membranes Rupture Positive 04/15/24 16:55 ABO/Rh Cancelled 04/15/24 20:03 Antibody Screen Cancelled 04/15/24 20:03 Antibody Identification Anti-D 04/15/24 19:12 Vital Signs Reviewed: Yes Subjective Patient Reports: No new Complaints Interval history since last seen: Patient was able to get intermittent rest after morphine/vistaril injection. She reports contractions have decreased in frequency. OOB to void frequently. Reviewed POC of cervical ripening today with Misoprostol- pt agrees. All questions answered. Results Hemoglobin/Hematocrit: Hgb 11.7 g/dL (11.2-15.7) 04/15/24 19:12 Hct 34.3 % (36.0-46.0) L 04/15/24 19:12 Abnormal Lab Findings: Abnormal Labs 04/15/24 19:12 RBC 3.64 L Hct 34.3 L MPV 11.4 H
[2024-04-16] MEDS: valACYclovir 1,000 MG TAB 1000 MG PO (09:16)
--- NOTE | 2024-04-16 13:10 | W.PM.OBNL1 ---
Date of service: 04/16/24 Time of Service: 13:10 Informed Consent Informed Consent: Augmentation of Labor and Induction of Labor Pelvic Exam Dilation: 3 Effacement (%): 80 station: -3 Position: QUEENIE Cervix Position: mid Consistency: medium BISHOPS Score(Cervical Ripeness Score): 7 Vaginal Exam Presentation: Vertex ROM Plus: Positive Contractions Monitor Mode: External Contraction Frequency(min): 4-6 Contraction Duration(sec): 60 Intensity: Mild/Moderate Fetus A Monitor: External (US) Heart Rate Baseline: 125 Presentation: Vertex Variability: Moderate (6-25 BPM) Categories: Category I Accelerations: 15 X 15 Decelerations: None Amniotic Membrane Status: Ruptured Assessment Note: SROM of forebag around 1200 Assessment and Plan Assessment and plan (1) PROM (premature rupture of membranes): Status: Acute Assessment and plan: A: at 39w2d PROM augmentation S/P Misoprostol x2 Cat 1 FHT P: Patient to eat lunch and shower Place IV access Start Pitocin at 1400 if clinically appropriate Objective Abnormal lab results 04/15/24 Range/Units 19:12 RBC 3.64 L (3.93-5.22) 10^6/uL Hct 34.3 L (36.0-46.0) % MPV 11.4 H (8.0-11.0) fL Temp Pulse Resp BP Pulse Ox 98.1 F 90 17 125/85 99 04/16/24 09:24 04/16/24 07:33 04/16/24 07:33 04/16/24 07:33 04/16/24 07:33 Laboratory Results WBC 10.40 10^3/uL (4.4-10.8) 04/15/24 19:12 RBC 3.64 10^6/uL (3.93-5.22) L 04/15/24 19:12 Hgb 11.7 g/dL (11.2-15.7) 04/15/24 19:12 Hct 34.3 % (36.0-46.0) L 04/15/24 19:12 MCV 94 fL (80-95) 04/15/24 19:12 MCH 32.1 pg (27.0-33.0) 04/15/24 19:12 MCHC 34.1 % (32.0-36.0) 04/15/24 19:12 RDW 12.7 % (11.7-14.6) 04/15/24 19:12 Plt Count 173 10^3/uL (130-400) 04/15/24 19:12 MPV 11.4 fL (8.0-11.0) H 04/15/24 19:12 Membranes Rupture Positive 04/15/24 16:55 ABO/Rh Cancelled 04/15/24 20:03 Antibody Screen Cancelled 04/15/24 20:03 Antibody Identification Anti-D 04/15/24 19:12 Subjective Patient Reports: New Complaints (gush of clear fluid at 1200, contractions have increased in pain and frequency, patient now using nitrous and very teary) Results Hemoglobin/Hematocrit: Hgb 11.7 g/dL (11.2-15.7) 04/15/24 19:12 Hct 34.3 % (36.0-46.0) L 04/15/24 19:12 Abnormal Lab Findings: Abnormal Labs 04/15/24 19:12 RBC 3.64 L Hct 34.3 L MPV 11.4 H
--- NOTE | 2024-04-16 13:35 | W.OBNST ---
Date of service: 04/15/24 Time of Service: 17:40 NST Evaluation Reason for NST Reasons for Nonstress Test: FALSE LABOR Gestational Age Gestational Age in Weeks and Days: 39 Weeks and 1Days Test and Monitor Explained Test/Monitor Explained: Test Explained, Monitor Explained and Patient Verbalized Understanding Vital Signs Blood Pressure: 130/83 Pulse: 85 Temperature: 98.6 F Urine Results Urine Protein: Negative Urine Ketones: Negative Urine Glucose: Negative Urine Blood: Negative NST Information Date on Monitor: 04/15/24 Time on Monitor: 16:56 Date off Monitor: 04/15/24 Time off Monitor: 17:40 Total Time on Monitor: 44 NST Interventions: Notify Provider Contraction Frequency: Irregular NST Evaluation Patient States Movement: Present FHR Baseline: 130 Variability: Moderate 6-25 bpm Accelerations: 15x15 Decelerations: None NST Results: Reactive Note Ultrasound Done: N/A. NST Note NST Reviewed and Verified by: Anai Merrill
--- NOTE | 2024-04-16 15:46 | W.PM.OBNL1 ---
Date of service: 04/16/24 Time of Service: 15:46 Informed Consent Informed Consent: Augmentation of Labor and Induction of Labor Contractions Monitor Mode: External Contraction Frequency(min): 2-3 Contraction Duration(sec): 60 Intensity: Moderate Fetus A Monitor: Doppler Heart Rate Baseline: 135 Accelerations: Absent Decelerations: None Amniotic Membrane Status: Ruptured Assessment Note: Intermittent Auscultation, continuous monitoring to be applied prior to epidural placement Assessment and Plan Assessment and plan (1) PROM (premature rupture of membranes): Status: Acute Assessment and plan: A: PROM at 39w2d >24 hr ROM Afebrile s/o Misoprostol x2 last Salazar score 7 P: Out of tub and back to bed to await epidural placement SVE when clinically indicated anticipated Objective Abnormal lab results 04/15/24 Range/Units 19:12 RBC 3.64 L (3.93-5.22) 10^6/uL Hct 34.3 L (36.0-46.0) % MPV 11.4 H (8.0-11.0) fL Temp Pulse Resp BP Pulse Ox 98.2 F 87 16 125/82 99 04/16/24 13:00 04/16/24 13:00 04/16/24 13:00 04/16/24 13:00 04/16/24 13:00 Laboratory Results WBC 10.40 10^3/uL (4.4-10.8) 04/15/24 19:12 RBC 3.64 10^6/uL (3.93-5.22) L 04/15/24 19:12 Hgb 11.7 g/dL (11.2-15.7) 04/15/24 19:12 Hct 34.3 % (36.0-46.0) L 04/15/24 19:12 MCV 94 fL (80-95) 04/15/24 19:12 MCH 32.1 pg (27.0-33.0) 04/15/24 19:12 MCHC 34.1 % (32.0-36.0) 04/15/24 19:12 RDW 12.7 % (11.7-14.6) 04/15/24 19:12 Plt Count 173 10^3/uL (130-400) 04/15/24 19:12 MPV 11.4 fL (8.0-11.0) H 04/15/24 19:12 Membranes Rupture Positive 04/15/24 16:55 ABO/Rh Cancelled 04/15/24 20:03 Antibody Screen Cancelled 04/15/24 20:03 Antibody Identification Anti-D 04/15/24 19:12 Subjective Interval history since last seen: Patient moved to RM 300 to get in the tub. Breathing well through frequent contractions every 2-3 minutes. Requesting epidural for pain management. [employer] paged Results Hemoglobin/Hematocrit: Hgb 11.7 g/dL (11.2-15.7) 04/15/24 19:12 Hct 34.3 % (36.0-46.0) L 04/15/24 19:12 Abnormal Lab Findings: Abnormal Labs 04/15/24 19:12 RBC 3.64 L Hct 34.3 L MPV 11.4 H
[2024-04-16] MEDS: Lactated Ringers 1,000 ML 125 ML IV (15:50)
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
[2024-04-16] MEDS: FentaNYL/ROPIvacaine 2 mcg/ml and 0.1% 200 ML CADD Cassette EP (16:40)
--- NOTE | 2024-04-16 16:49 | ANES.NEUR_ITS ---
Epidural/Spinal Catheter Date Performed: 04/16/24 Procedure Start: 16:30 Procedure Stop: 16:40 Requesting Provider: Anai Merrill Procedure Location: Obstetrics Reason Performed: Labor Epidural Standard Monitors Applied: Blood Pressure and SpO2 Patient Position: Sitting Sedation Given (Indicate Dose Given): No Sedation given Patient Mental Status: Awake Sterility: Hand Hygiene, Surgical Mask, Sterile Gloves, Sterile Drape/Sheet and Chlorhexidine Procedure Location: L4-L5 Interspace Epidural Needle: Tuohy 17 Guage Needle Length: 3.5 Inch Needle Approach: Midline Epidural Procedure: Skin Prepped, Sterile Drape Placed, 1% Lidocaine to skin and subcutaneous tissue with 25G needle, Tuohy Needle placed, ERNESTO to Saline Used, Epidural Catheter Placed, Negative Heme, Negative CSF Flow and Tuohy Needle Removed Catheter Placed?: Catheter Placed Test Dose (Indicate Dose Given): 5ml 1.5% Lidocaine with 1:200K Epinephrine Given and Negative Test Dose Loss of Resistanc e Depth (cm): 10 Catheter depth at skin (cm): 15 Dressing: Sorbaview Dressing Placed, Mastisol Used and Dressing reinforced with Tape Epidural Provider Bolus (Indicate Dose Given): Total bolus dose given in 3-5 ml divided doses and Total Ropivacaine 0.1% with Fentanyl 2mcg/ml Given from pump. (ml) Dose:: 10 ml Additives (Indicate Dose Given ): None Infusion Medication: Medication Infusion Began Medication Infusion: Ropivacaine 0.1% with Fentanyl 2mcg/ml Maintenance Infusion Rate (ml/hour): 10 PCEA Bolus Dose (ml): 5 Block Level: N/A Paresthesia: Left Paresthesia Duration: Transient (Reports discomfort in knee and buttocks. ) and Right Paresthesia Duration: Transient (Reports discomfort in foot) Ultrasound: Not Used Number of Attempts (See previous attempts in note section): 1 Procedure Tolerated: No Complications and Patient tolerated well Procedure Outcome: Successful Procedure Comment:: Patient initially did not affirm wish to proceed with epidural during timeout. I stopped and we discussed again at length that this an elective procedure and completely up to her. I did not proceed until she was comfortable with proceeding. Performed By: Maurice Jovel
--- NOTE | 2024-04-16 17:30 | W.PM.OBNL1 ---
Date of service: 04/16/24 Time of Service: 17:30 Informed Consent Informed Consent: Augmentation of Labor and Induction of Labor Pelvic Exam Dilation: 5 Effacement (%): 80 station: -3 Position: LOT Cervix Position: mid Consistency: medium BISHOPS Score(Cervical Ripeness Score): 7 Vaginal Exam Presentation: Vertex Contractions Monitor Mode: External Contraction Frequency(min): 2-3 Contraction Duration(sec): 60 Intensity: Mild/Moderate Fetus A Monitor: External (US) Heart Rate Baseline: 120 Presentation: Vertex Variability: Moderate (6-25 BPM) Categories: Category I Characteristics: Normal Accelerations: 15 X 15 Decelerations: None Amniotic Membrane Status: Ruptured Assessment and Plan Assessment and plan (1) PROM (premature rupture of membranes): Status: Acute Assessment and plan: A: PROM at 39w2d Inadequate relief with epidural P: Consents to 1mg Stadol IVP now, MAC OPERATOR to remove and replace epidural Start Pitocin once pain managed Left lateral positioning to encourage rotation Objective Abnormal lab results 04/15/24 Range/Units 19:12 RBC 3.64 L (3.93-5.22) 10^6/uL Hct 34.3 L (36.0-46.0) % MPV 11.4 H (8.0-11.0) fL Temp Pulse Resp BP Pulse Ox 98.2 F 105 H 16 133/77 98 04/16/24 16:22 04/16/24 17:26 04/16/24 13:00 04/16/24 17:12 04/16/24 17:26 Laboratory Results WBC 10.40 10^3/uL (4.4-10.8) 04/15/24 19:12 RBC 3.64 10^6/uL (3.93-5.22) L 04/15/24 19:12 Hgb 11.7 g/dL (11.2-15.7) 04/15/24 19:12 Hct 34.3 % (36.0-46.0) L 04/15/24 19:12 MCV 94 fL (80-95) 04/15/24 19:12 MCH 32.1 pg (27.0-33.0) 04/15/24 19:12 MCHC 34.1 % (32.0-36.0) 04/15/24 19:12 RDW 12.7 % (11.7-14.6) 04/15/24 19:12 Plt Count 173 10^3/uL (130-400) 04/15/24 19:12 MPV 11.4 fL (8.0-11.0) H 04/15/24 19:12 Membranes Rupture Positive 04/15/24 16:55 ABO/Rh Cancelled 04/15/24 20:03 Antibody Screen Cancelled 04/15/24 20:03 Antibody Identification Anti-D 04/15/24 19:12 Subjective Interval history since last seen: Epidural in place with slow onset of action, Maurice RESTREPO has offered to remove and replace the epidural. Current SVE /-3 with significant molding and persistent LOT. Results Hemoglobin/Hematocrit: Hgb 11.7 g/dL (11.2-15.7) 04/15/24 19:12 Hct 34.3 % (36.0-46.0) L 04/15/24 19:12 Abnormal Lab Findings: Abnormal Labs 04/15/24 19:12 RBC 3.64 L Hct 34.3 L MPV 11.4 H
[2024-04-16] MEDS: Normal Saline Flush 10 ML SYR IVP (17:45)
--- NOTE | 2024-04-16 18:50 | W.ANESNEU ---
Epidural/Spinal Catheter Date Performed: 04/16/24 Procedure Start: 06:32 Procedure Stop: 06:40 Requesting Provider: Anai Merrill Procedure Location: Obstetrics Reason Performed: Labor Epidural Standard Monitors Applied: Blood Pressure and SpO2 Patient Position: Sitting Sedation Given (Indicate Dose Given): No Sedation given Patient Mental Status: Awake Sterility: Hand Hygiene, Surgical Cap, Surgical Mask, Sterile Gloves, Sterile Drape/Sheet and Chlorhexidine Procedure Location: L4-L5 Interspace Epidural Needle: Tuohy 17 Guage Needle Length: 3.5 Inch Needle Approach: Midline Epidural Procedure: Skin Prepped, Sterile Drape Placed, 1% Lidocaine to skin and subcutaneous tissue with 25G needle, Tuohy Needle placed, ERNESTO to Saline Used, Epidural Catheter Placed, Negative Heme, Negative CSF Flow and Tuohy Needle Removed Catheter Placed?: Catheter Placed Test Dose (Indicate Dose Given): 5ml 1.5% Lidocaine with 1:200K Epinephrine Given and Negative Test Dose Loss of Resistance Depth (cm): 10 Catheter depth at skin (cm): 16 Dressing: Sorbaview Dressing Placed, Mastisol Used and Dressing reinforced with Tape Epidural Provider Bolus (Indicate Dose Given): Total Ropivacaine 0.1% with Fentanyl 2mcg/ml Given from pump. (ml) Dose:: 10 ml Additives (Indicate Dose Given ): None Infusion Medication: Medication Infusion Began Medication Infusion: Ropivacaine 0.1% with Fentanyl 2mcg/ml Maintenance Infusion Rate (ml/hour): 10 PCEA Bolus Dose (ml): 5 Block Level: N/A Paresthesia: None Ultrasound: Not Used Number of Attempts (See previous attempts in note section): 1 Procedure Tolerated: No Complications and Patient tolerated well Procedure Outcome: Successful Procedure Comment:: Removed Epidural catheter from prior placement, tip intact. Easy loss of resistance experienced again on this procedure. No paresthesia this procedure. Warmth to buttocks and tingling legs. Performed By: Maurice Jovel
--- NOTE | 2024-04-16 20:38 | W.PM.OBNL1 ---
Date of service: 04/16/24 Time of Service: 20:39 Informed Consent Informed Consent: Augmentation of Labor and Induction of Labor Pelvic Exam Dilation: 5 Effacement (%): 80 station: -2 Contractions Monitor Mode: External Contraction Frequency(min): 2-4 Contraction Duration(sec): 40-60 Intensity: Moderate Fetus A Monitor: External (US) Heart Rate Baseline: 130 Variability: Moderate (6-25 BPM) Categories: Category I Characteristics: Normal Accelerations: Absent Decelerations: Early Amniotic Membrane Status: Ruptured Assessment and Plan Assessment and plan (1) PROM (premature rupture of membranes): Status: Acute Assessment and plan: A: PROM 39w2d S/p Miso x [address] P: Patient to rest with peanut ball on left side Reassess 4-6 hrs Objective Temp Pulse Resp BP Pulse Ox 98.2 F 91 H 17 127/66 97 04/16/24 19:01 04/16/24 20:36 04/16/24 19:01 04/16/24 20:31 04/16/24 20:35 Laboratory Results WBC 10.40 10^3/uL (4.4-10.8) 04/15/24 19:12 RBC 3.64 10^6/uL (3.93-5.22) L 04/15/24 19:12 Hgb 11.7 g/dL (11.2-15.7) 04/15/24 19:12 Hct 34.3 % (36.0-46.0) L 04/15/24 19:12 MCV 94 fL (80-95) 04/15/24 19:12 MCH 32.1 pg (27.0-33.0) 04/15/24 19:12 MCHC 34.1 % (32.0-36.0) 04/15/24 19:12 RDW 12.7 % (11.7-14.6) 04/15/24 19:12 Plt Count 173 10^3/uL (130-400) 04/15/24 19:12 MPV 11.4 fL (8.0-11.0) H 04/15/24 19:12 Membranes Rupture Positive 04/15/24 16:55 ABO/Rh Cancelled 04/15/24 20:03 Antibody Screen Cancelled 04/15/24 20:03 Antibody Identification Anti-D 04/15/24 19:12 Subjective Interval history since last seen: Successful second epidural placement around 1899, SVE with cervical progress, singh catheter placed. Patient finally comfortable and now able to rest. Results Hemoglobin/Hematocrit: Hgb 11.7 g/dL (11.2-15.7) 04/15/24 19:12 Hct 34.3 % (36.0-46.0) L 04/15/24 19:12 Abnormal Lab Findings: Abnormal Labs 04/15/24 19:12 RBC 3.64 L Hct 34.3 L MPV 11.4 H
--- NOTE | 2024-04-16 20:57 | W.PM.OBNL1 ---
Date of service: 04/16/24 Time of Service: 20:57 Informed Consent Informed Consent: Augmentation of Labor and Induction of Labor Pelvic Exam Dilation: 10 Effacement (%): 100 station: +1 Position: OA Contractions Monitor Mode: External Contraction Frequency(min): q2 Contraction Duration(sec): 60 Intensity: Strong Fetus A Monitor: External (US) Heart Rate Baseline: 120 Presentation: Cephalic Variability: Moderate (6-25 BPM) Categories: Category I Characteristics: Normal Accelerations: Absent Decelerations: Early Amniotic Membrane Status: Ruptured Assessment and Plan Assessment and plan (1) PROM (premature rupture of membranes): Status: Acute Assessment and plan: A: Second Stage P: Start pushing anticipated Objective Temp Pulse Resp BP Pulse Ox 98.2 F 102 H 17 127/66 99 04/16/24 19:01 04/16/24 20:56 04/16/24 19:01 04/16/24 20:31 04/16/24 20:55 Laboratory Results WBC 10.40 10^3/uL (4.4-10.8) 04/15/24 19:12 RBC 3.64 10^6/uL (3.93-5.22) L 04/15/24 19:12 Hgb 11.7 g/dL (11.2-15.7) 04/15/24 19:12 Hct 34.3 % (36.0-46.0) L 04/15/24 19:12 MCV 94 fL (80-95) 04/15/24 19:12 MCH 32.1 pg (27.0-33.0) 04/15/24 19:12 MCHC 34.1 % (32.0-36.0) 04/15/24 19:12 RDW 12.7 % (11.7-14.6) 04/15/24 19:12 Plt Count 173 10^3/uL (130-400) 04/15/24 19:12 MPV 11.4 fL (8.0-11.0) H 04/15/24 19:12 Membranes Rupture Positive 04/15/24 16:55 ABO/Rh Cancelled 04/15/24 20:03 Antibody Screen Cancelled 04/15/24 20:03 Antibody Identification Anti-D 04/15/24 19:12 Vital Signs Reviewed: Yes Subjective Interval history since last seen: Feeling more pressure and that epidural has stopped working. Found to be complete. Start pushing Results Hemoglobin/Hematocrit: Hgb 11.7 g/dL (11.2-15.7) 04/15/24 19:12 Hct 34.3 % (36.0-46.0) L 04/15/24 19:12 Abnormal Lab Findings: Abnormal Labs 04/15/24 19:12 RBC 3.64 L Hct 34.3 L MPV 11.4 H
[2024-04-16] MEDS: Oxytocin/Normal Saline 30 UNIT/500 ML BAG 95 UNITS IV (21:15)
--- NOTE | 2024-04-16 21:44 | OBVDS_ITS ---
Date of service: 04/16/24 Time of Service: 21:44 OB Labor/ Delivery Information Baby A Delivery Delivery Method: Spontaneaous Presentation: Vertex Cephalic Position: Vertex Vertex Position: Right Occipital Anterior Cord Description-Baby A: 3 Vessels Amniotic Fluid: Clear Estimated Blood Loss: 320 Delivery Outcome: Liveborn Infant Complications: none Transferred: Remains with Mother Providers Nurse Division Merchandise Manager: Anai Merrill Nurse: Meli Chavez Nurse: Yessy Valentine Labor/Delivery Information Number of Babies in Womb: 1 Steroids Given: None Reason Steroids Not Administered: N/A Group Beta Strep: Negative Antibiotics Administered: No Rubella Status: Immune Blood Type: A- Varicella Immunity: Immune Maternal Complications: Premature Rupture of Membranes Shoulder Dystocia: No Stages of Labor Complete Dilatation Date: 04/16/24 Complete Dilatation Time: 08:50 ROM Baby A: 04/15/24 ROM Baby A: 06:00 ROM Total Time- Baby A: [id number] Delivery Date-Baby A: 04/16/24 Delivery Time-Baby A: 21:08 Labor Stage 2 Duration: 12 hours and 18 minutes Placenta Delivery Date-Baby A: 04/16/24 Placenta Delivery Time-Baby A: 21:17 Labor-Stage 3 Duration: 9 minutes Placenta Status: Delivered Placenta Status: Delivered Baby A Gender: Female Gestational Status: Term (39-41.6 wks) Gestational Age in Weeks/Days: 39 Weeks and 2 Days Score-1 Minute Interval(Baby A) Heart Rate-1 minute: 100 BPM or Greater Respiratory Effort- 1 minute: Slow Respiration/Weak Cry Muscle Tone-1 minute: Active Movement Reflex Response-1 minute: Prompt Response Color-1 minute: Pallor or Cyanosis Total Score-1 minute: 7 Score-5 Minute Interval(Baby A) Heart Rate- 5 minute: 100 BPM or Greater Respiratory Effort-5 minute: Spontaneous/Strong Cry Muscle Tone-5 minute: Active Movement Reflex Response-5 minute: Prompt Response Color-5 minute: Bluish Hands or Feet Total Score- 5 minute: 9 Note: FHTs 120s during first stage of labor. FHTs 120s in second stage. She progressed to full dilation and began pushing. Second stage huddle was done. Spontaneous delivery of delivered in OA position with restitution to ARASH. Baby was placed on mother's abdomen and dried and stimulated. Spontaneous cry. Cord was clamped and cut by Wilma (aunt) . The placenta delivered spontaneously and appears to by intact with a three vessel cord. Pitocin IV was administered before delivery of the placenta. The perineum was inspected and a right sulcal tear was repaired with 3-0 Vicryl. The baby did breastfeed. After delivery, Mother and baby and father of the baby were stable and bonding well in the delivery room and there were no complications.
[2024-04-17 01:26] VITALS: BP 129/75; PULSE 104; RESP 18; TEMP 36.9; O2SAT 98
[2024-04-17] MEDS: Acetaminophen 325 MG TAB 650 MG PO (07:37)
[2024-04-17] MEDS: Ibuprofen 600 MG TAB PO (07:38)
[2024-04-17 07:40] VITALS: BP 127/83; PULSE 106; RESP 12; TEMP 36.8
[2024-04-17] MEDS: RHO(D) Immune Globulin 1,500 UNIT Syringe 1500 UNIT IM (08:47)
[2024-04-17] MEDS: Dibucaine 1% 28 GM TUBE TP (11:31)
[2024-04-17] MEDS: Hamamelis Leaf/Glycerin 100 EACH BOX PR (11:32)
--- NOTE | 2024-04-17 11:41 | W.ANESPOSTOP ---
Postoperative Evaluation Date, Time and Location Date Performed: 04/17/24 Time Performed: 11:41 Patient Location: Obstetrics Vital Signs Most Recent Imported Vital Signs: Most Recent Vital Signs Temp Pulse Resp BP Pulse Ox 36.8 C 106 H 12 127/83 98 04/17/24 07:40 04/17/24 07:40 04/17/24 07:40 04/17/24 07:40 04/17/24 01:26 Pain Score Most Recent Pain Score: Most Recent Pain Score Pain Level 4 04/17/24 07:38 Assessment Mental Status: Awake (Alert & Oriented to Patient Baseline) Airway and Respiratory Function: Patent airway with normal (patient baseline) respiratory exam Cardiovascular Function: Hemodynamically Stable Hydration Status: Adequately Hydrated Nausea & Vomiting: No Nausea or Vomiting Pain: Pain is tolerable per patient Peripheral Nerve Block: Patient did not receive a nerve block
--- NOTE | 2024-04-17 11:45 | OBPPV_ITS ---
Date of service: 04/17/24 Time of Service: 11:30 Assessment and Plan Assessment and plan (1) Term delivered: Status: Acute Assessment and plan: A: PPD#1, nml recovery starting well, satisfied with experience P: Routine PP care, counseling and support Undecided about BCM, RhoGam has been given Encouraged to plan discharge at >48 hrs Subjective Subjective Patient comments: No complaints, Pain well controlled, Tolerating diet and Flatus present Patient's Mood: happy [place] baby status: Doing well, Nursing well, Rooming in and Strong Bonding Observed [place] feeding status: Exclusively breast feeding Exam Physical Exam Vital signs: Temp Pulse Resp BP Pulse Ox 98.2 F 106 H 12 127/83 98 04/17/24 07:40 04/17/24 07:40 04/17/24 07:40 04/17/24 07:40 04/17/24 01:26 Vital Signs Reviewed: Yes Constitutional Constitutional: no acute distress, obese and cooperative HEENT Exam HEENT Exam: Normal Neck Exam Neck Exam: Normal Breast Exam Bilateral: Breast Exam: Normal and Soft Nipple Exam: Normal and Uninjured Respiratory Exam Respiratory Exam: Normal Cardiovascular Exam Cardiovascular Exam: Normal Abdominal Exam Abdomen: Other (soft, nontender) Fundal Exam Fundus: Below Umbilicus and Firm Rectal Exam Rectal Exam: Normal Exam Perineum: Repair Intact Extremities Exam Extremity Exam: Normal, Full ROM and Warm to Touch Back/Spine/Pelvis Exam Back Exam: Normal Skin Exam Skin Exam: Normal Neurological Exam Neurological Exam: Normal Psychiatric Exam Psychiatric Exam: Normal Results Hemoglobin/Hematocrit: Hgb 11.7 g/dL (11.2-15.7) 04/15/24 19:12 Hct 34.3 % (36.0-46.0) L 04/15/24 19:12 Abnormal Lab Findings: Abnormal Labs 04/15/24 19:12 RBC 3.64 L Hct 34.3 L MPV 11.4 H
[2024-04-17 15:30] VITALS: BP 128/82; PULSE 75; RESP 16; TEMP 37.3
[2024-04-17 20:00] VITALS: BP 141/89; PULSE 133; RESP 17; TEMP 36.5; O2SAT 98
[2024-04-18 09:00] VITALS: BP 117/69; PULSE 103; RESP 18; TEMP 36.6; O2SAT 98
--- NOTE | 2024-04-18 11:35 | W.PM.OBPNV1 ---
Date of service: 04/18/24 Time of Service: 11:30 Assessment and Plan Assessment and plan (1) Term delivered: Status: Acute Assessment and plan: A: PPD#2, nml recovery Baby not latching well, pt pumping and syringe feeding rather than putting baby to breast P: Routine PP care, continue counseling and support with informed choice Undecided about BCM, RhoGam has been given Discharge planned for tomorrow morning Subjective Subjective Patient comments: No complaints, Pain well controlled, Tolerating diet and Bowel Movement Patient's Mood: happy but having frustrations with baby status: Doing well, Supplemental feeding going well, Rooming in and Strong Bonding Observed [place] feeding status: Exclusively breast feeding and [place] Feeding (syringe feeding pumped colostrum) Exam Physical Exam Vital signs: Temp Pulse Resp BP Pulse Ox 97.9 F 103 H 18 117/69 98 04/18/24 09:00 04/18/24 09:00 04/18/24 09:00 04/18/24 09:00 04/18/24 09:00 Vital Signs Reviewed: Yes Constitutional Constitutional: no acute distress, obese and cooperative HEENT Exam HEENT Exam: Normal Neck Exam Neck Exam: Normal Breast Exam Bilateral: Breast Exam: Normal and Soft Respiratory Exam Respiratory Exam: Normal Cardiovascular Exam Cardiovascular Exam: Normal Abdominal Exam Abdomen: Other (soft, nontender) Fundal Exam Fundus: Below Umbilicus and Firm Rectal Exam Rectal Exam: Normal Exam Perineum: Repair Intact Extremities Exam Extremity Exam: Normal, Full ROM and Warm to Touch Back/Spine/Pelvis Exam Back Exam: Normal Skin Exam Skin Exam: Normal Neurological Exam Neurological Exam: Normal Psychiatric Exam Psychiatric Exam: Normal Results Hemoglobin/Hematocrit: Hgb 11.7 g/dL (11.2-15.7) 04/15/24 19:12 Hct 34.3 % (36.0-46.0) L 04/15/24 19:12 Abnormal Lab Findings: Abnormal Labs 04/15/24 19:12 RBC 3.64 L Hct 34.3 L MPV 11.4 H
[2024-04-18 20:19] VITALS: BP 131/71; PULSE 115; RESP 16; TEMP 36.5
[2024-04-19 08:00] VITALS: BP 129/80; PULSE 94; RESP 18; TEMP 36.7
--- NOTE | 2024-04-19 08:49 | OBPPV_ITS ---
Date of service: 04/19/24 Time of Service: 08:49 Assessment and Plan Assessment and plan (1) Term delivered: Status: Acute Assessment and plan: A: PPD#3, nml recovery Baby not latching well, pt pumping and syringe feeding rather than putting baby to breast P: Discharge to home this morning Pt considering Nexplanon for BCM Written instructions reviewed and given to pt F/up at 2 & 6 wks Subjective Subjective Patient comments: No complaints, Pain well controlled and Tolerating diet Patient's Mood: happy [place] feeding status: Pumping and bottle feeding Exam Physical Exam Vital signs: Temp Pulse Resp BP Pulse Ox 98.1 F 94 H 18 129/80 98 04/19/24 08:00 04/19/24 08:00 04/19/24 08:00 04/19/24 08:00 04/18/24 09:00 Vital Signs Reviewed: Yes Constitutional Constitutional: no acute distress, obese and cooperative HEENT Exam HEENT Exam: Normal Neck Exam Neck Exam: Normal Breast Exam Bilateral: Breast Exam: Normal and Soft Respiratory Exam Respiratory Exam: Normal Cardiovascular Exam Cardiovascular Exam: Normal Abdominal Exam Abdomen: Other (soft, nontender) Fundal Exam Fundus: Below Umbilicus and Firm Rectal Exam Rectal Exam: Normal Exam Perineum: Repair Intact Extremities Exam Extremity Exam: Normal, Full ROM and Warm to Touch Back/Spine/Pelvis Exam Back Exam: Normal Skin Exam Skin Exam: Normal Neurological Exam Neurological Exam: Normal Psychiatric Exam Psychiatric Exam: Normal Results Hemoglobin/Hematocrit: Hgb 11.7 g/dL (11.2-15.7) 04/15/24 19:12 Hct 34.3 % (36.0-46.0) L 04/15/24 19:12 Abnormal Lab Findings: Abnormal Labs 04/15/24 19:12 RBC 3.64 L Hct 34.3 L MPV 11.4 H Hemorrrhage Note IV Site Left Wrist: IV Catheter Gauge: 20
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
== END 2024-04-19 10:00 | disposition home or self-care (01) | DRG 806 ==
LOC: BCD 18:58 → OBS 18:58
PROVIDERS: Admitting Provider Advanced Practice Midwife; Visit Provider Advanced Practice Midwife
DX: O42.02 Full-term premature rupture of membranes, onset of labor within 24 hours of rupture (principal); F31.81 Bipolar II disorder; Z37.0 Single live birth; O71.4 Obstetric high vaginal laceration alone; O98.32 Other infections with a predominantly sexual mode of transmission complicating childbirth; O99.324 Drug use complicating childbirth; Z3A.39 39 weeks gestation of pregnancy; O26.893 Other specified pregnancy related conditions, third trimester; Z67.91 Unspecified blood type, Rh negative; O34.83 Maternal care for other abnormalities of pelvic organs, third trimester; N83.291 Other ovarian cyst, right side; A60.00 Herpesviral infection of urogenital system, unspecified; O99.344 Other mental disorders complicating childbirth; F41.8 Other specified anxiety disorders; O12.04 Gestational edema, complicating childbirth; O99.52 Diseases of the respiratory system complicating childbirth; J45.909 Unspecified asthma, uncomplicated; F12.90 Cannabis use, unspecified, uncomplicated
CPT/HCPCS: 36415; 84112; 85027; 85461; 86850; 86900; 86901; 90384; 59025; 59200; 86870; J0595; J2270; J2790; J3410; J3490

== ENCOUNTER 2024-05-28 14:48 | Outpatient (REF) | payer MEDICAID, SELFPAY ==
--- NOTE | 2024-05-28 14:00 | PAPFT_PTH ---
PATIENT: Roshni Shaffer LOC: [facility] U#:[id number] AGE/SX: 24/F ROOM: RE05/28/[address]: Constance Mariscal : 2000 BED: DIS: 05/28/2024 SPEC #: [id number] RECD: 05/28/24 17:51 STATUS: [place] REQ #: [id number] EUGENIA: 05/28/24 14:[address]: Constance Mariscal DEPT: REPLACED BY [facility] Cytology RECD BY: Yue Butts ENTERED: 05/28/24 17:52 SP TYPE: PAPFT OTHR DR: Unknown,Unknown Tissues: 1 - CX/ENDOCX FOR PAP SMEARS Procedures: PAP THIN PREP/UVM Screening Comments: [id number]
== END 2024-05-28 14:49 | disposition home or self-care (01) ==
LOC: LBN 14:48
PROVIDERS: Visit Provider Advanced Practice Midwife
DX: Z12.4 Encounter for screening for malignant neoplasm of cervix (principal); R87.5 Abnormal microbiological findings in specimens from female genital organs
CPT/HCPCS: 88142

== ENCOUNTER 2024-10-20 15:35 | Outpatient (REF) | payer MEDICAID, SELFPAY ==
[2024-10-20 19:20] LABS: Hemoglobin A1C 4.9 % (<5.7)
[2024-10-20 19:28] LABS: TSH 1.60 uIU/mL (0.36-3.74)
== END 2024-10-20 15:36 | disposition home or self-care (01) ==
LOC: NCHCN 15:35
PROVIDERS: Visit Provider Physician Assistant
DX: Z13.1 Encounter for screening for diabetes mellitus (principal); N91.2 Amenorrhea, unspecified
CPT/HCPCS: 83036; 84439; 84443